=== PATIENT | female | born 1955 | race African-American/Black ===

== ENCOUNTER 2017-08-21 21:38 | Inpatient (IN) | payer MEDICAID ==
[~2017-08-21] VITALS: Ht 175.3 cm; Wt 131.5 kg
[~2017-08-21 21:38] MED LIST: HYDROCHLOROTH12.5 M2 ORAL; LETROZOLE2.5 MG ORAL; METOPROLOL TAR100 M1 ORAL
--- NOTE | 2017-08-21 21:55 | Emergency Room Report ---
History of Present Illness General Chief Complaint: Upper Extremity Injury Source: Patient Present Illness HPI This is a 62-year-old female with history of high blood pressure breast cancer in the past. For breast cancer she had lumpectomy and lymph node dissection. She presents with chief complaint of a fall and bilateral shoulder pain. Right greater than left. She was helping a friend out in [place] when she tripped over a rug and fell onto her front in and right side. She complaining of mostly right shoulder pain. Unable to move it. Pain is 10 out of 10. Also with left shoulder pain which she described as 6 out of 10. Worse with movement. No nausea no vomiting. No head injury. Did not pass out. Occurred just prior to arrival. Her neighbor called 911 because she could not get up and because of the pain. Allergies: Coded Allergies: No Known Allergies (Unverified , 08/21/17) Patient History Past Medical History: see triage record, old chart reviewed, HTN Past Surgical History: other Pertinent Family History: none Social History: Denies: smoking Now: No Immunizations: other Reviewed Nursing Documentation: PMH: Agreed; PSxH: Agreed Nursing Documentation-PMH Past Medical History: No History, Except For Hx Hypertension: Yes Hx Cancer: Yes - Left breast Review of Systems Eye: Denies: eye pain, blurred vision ENT: Denies: ear pain, nose congestion, throat swelling Respiratory: Denies: cough, shortness of breath Cardiovascular: Denies: chest pain, palpitations Gastrointestinal: Denies: abdominal pain, diarrhea, nausea, vomiting Musculoskeletal: Reports: joint pain; Denies: back pain Skin: Denies: rash Neurological: Denies: headache, numbness Endocrine: Denies: increased thirst, increased urine Hematologic/Lymphatic: Denies: easy bruising All Other Systems: negative except mentioned in HPI Physical Exam Sp02 EP Interpretation: reviewed, normal General Appearance: well appearing, no apparent distress, alert, obese Head: normocephalic, atraumatic Eyes: bilateral eye PERRL, bilateral eye EOMI ENT: hearing grossly normal, normal pharynx Neck: full range of motion, supple, no meningismus Respiratory: chest non-tender, lungs clear, normal breath sounds Cardiovascular #1: regular rate, rhythm, no murmur Gastrointestinal: normal bowel sounds, non tender, no mass, no organomegaly, no bruit, non-distended Musculoskeletal: back normal, other - Right shoulder: Tenderness to the shoulder diffusely. No elbow pain or wrist pain. Sensation normal. Pulses normal. Neurologic: alert, oriented x3 Psychiatric: mood/affect normal Skin: warm/dry Procedures Splinting Splinting : Consent: Verbal Location: right arm Hand-Made Type: plaster Splint: coaptation Pre-Proc Neuro Vasc Exam: normal Post-Proc Neuro Vasc Exam: normal Patient Tolerated: Well Complications: None Progress sling given for both arms Medical Decision Making Diagnostic Impression: Primary Impression: Fracture, humerus closed, shaft Qualified Codes: S42.321A - Displaced transverse fracture of shaft of humerus , right arm, initial encounter for closed fracture Additional Impressions: Humerus surgical neck fracture Qualified Codes: S42.222A - 2-part displaced fracture of surgical neck of left humerus, initial encounter for closed fracture UTI (urinary tract infection) Qualified Codes: N30.00 - Acute cystitis without hematuria Morbid obesity with BMI of 40.0-44.9, adult Anemia Qualified Codes: D64.9 - Anemia, unspecified Hypokalemia Proteinuria Qualified Codes: R80.9 - Proteinuria, unspecified ER Course Patient presents with bilateral humerus fracture from a fall. This is concerning for pathological fracture based on her breast cancer history. Patient splinted. We'll admit for further workup. Rocephin given for UTI. I discussed the case with Dr. Davey for admission. Also contacted Dr. Santos for ortho consult. Lab Results Impression labs unremarkable Other X-Ray Diagnostic Results Other X-Ray Diagnostic Results #1: X-Ray ordered: right shoulder x-rays # of Views/Limited Vs Complete: 3 View Indication: Pain EP Interpretation: Yes Interpretation: no dislocation, no soft tissue swelling, other - mid shaft humerus fracture Impression: Other - mid shaft humerus frx Electronically Signed by: Joon Nicole MD Other X-Ray Diagnostic Results #2: X-Ray ordered: left shoulder xrays # of Views/Limited Vs Complete: 3 View Indication: Pain EP Interpretation: Yes Interpretation: no dislocation, no soft tissue swelling, other - surgical neck frx of humerus Impression: Other - surgical neck humerus frx. Electronically Signed by: Joon Nicole MD Status: improved Disposition: ADMITTED INPATIENT Condition: Serious JOON NICOLE M.D. August 21, 2017 21:55
[2017-08-21] MEDS ORDERED: Morphine Sulfate 4mg/ml Inj IVP ONE ×2 (22:00→23:00)
[2017-08-21 22:58] VITALS: BP 106/60
[2017-08-21 23:23] LABS: BASOPHILS % (AUTO) 0.5 % (0.0-2.0); EOSINOPHILS % (AUTO) 1.3 % (0.0-3.0); HEMATOCRIT 27.8 % (37.0-47.0); HEMOGLOBIN 9.1 G/DL (12.0-16.0); MEAN CORPUSCULAR VOLUME 94 FL (80-99); MONOCYTES % (AUTO) 9.1 % (1.0-10.0); NEUTROPHILS % (AUTO) 75.1 % (45.0-75.0); PLATELET COUNT 239 K/UL (150-450); RED BLOOD COUNT 2.94 M/UL (4.20-5.40); RED CELL DISTRIBUTION WIDTH 12.7 % (11.6-14.8); WHITE BLOOD COUNT 9.2 K/UL (4.8-10.8)
[2017-08-21 23:27] LABS: ANION GAP 7 mmol/L (5-15); BLOOD UREA NITROGEN 19 mg/dL (7-18); CALCIUM 11.2 MG/DL (8.5-10.1); CARBON DIOXIDE 33 MMOL/L (21-32); CHLORIDE 102 MMOL/L (98-107); CREATININE 1.2 MG/DL (0.55-1.30); SODIUM 142 MMOL/L (136-145)
[2017-08-21 23:44] LABS: BILIRUBIN, URINE NEGATIVE (NEGATIVE); GLUCOSE, URINE (UA) NEGATIVE (NEGATIVE); KETONES,URINE NEGATIVE (NEGATIVE); LEUKOCYTE ESTERASE ,URINE 3+ (NEGATIVE); NITRITE,URINE NEGATIVE (NEGATIVE); PH,URINE 7 (4.5-8.0); PROTEIN,URINE 3+ (NEGATIVE); UROBILINOGEN,URINE NORMAL MG/DL (0.0-1.0)
[2017-08-21 23:59] LABS: APPEARANCE,URINE CLOUDY; COLOR,URINE YELLOW
[2017-08-22] VITALS (7 sets, daily range): BP systolic 122–143; BP diastolic 64–75
[2017-08-22] MEDS ORDERED: cefTRIAXone 1 GM in NS 55 ML IVPB ONE (00:30)
[2017-08-22] MEDS ORDERED: LETROZOLE2.5 MG ORAL (01:19)
[2017-08-22] MEDS ORDERED: HYDROCHLOROTH12.5 M2 ORAL (01:19)
[2017-08-22] MEDS ORDERED: MULTIVITAMINS1 EAC2 ORAL (01:19)
[2017-08-22] MEDS ORDERED: METOPROLOL TAR100 M1 ORAL (01:19)
[2017-08-22] MEDS: Morphine Sulfate 4mg/ml Inj IVP PRN ×5 (04:47→21:30)
--- NOTE | 2017-08-22 09:08 | Consultation ---
History of Present Illness General Date patient seen: August 22, 2017 Time patient seen: 07:30 - am Chief Complaint: Upper Extremity Injury Referring physician: Dr. Pa Reason for Consultation: Pain management Present Illness HPI This is a 62-year-old female being seen on the med/surg of [facility] for initial pain management consultation. She is c/o bilateral shoulder pain due to a fall. Right greater than left. She was helping a friend out in [place] when she tripped over a rug and fell onto her front in and right side. She complaining of mostly right shoulder pain. Unable to move it. Pain is 10 out of 10. Also with left shoulder pain which she described as 6 out of 10. Worse with movement. Started on Morphine 2mg IV Q4H PRN which has allowed her to tolerate the pain. Waiting to be seen by Orthopedic surgeon. Allergies: Coded Allergies: No Known Allergies (Unverified , 08/21/17) Medication History Scheduled Hydrochlorothiazide* (Hydrochlorothiazide*), 12.5 MG ORAL DAILY, (Reported) Letrozole (Letrozole), 2.5 MG ORAL DAILY, (Reported) Metoprolol Tartrate* (Metoprolol Tartrate*), 100 MG ORAL BID, (Reported) Multivitamins* (Multivitamins*), 1 TAB ORAL DAILY, (Reported) Discontinued Medications Hydrochlorothiazide* (Hydrochlorothiazide*), 12.5 MG ORAL DAILY, (Reported) Discontinued Reason: MD discontinued med Letrozole (Letrozole), 2.5 MG ORAL DAILY, (Reported) Discontinued Reason: MD discontinued med Metoprolol Tartrate* (Metoprolol Tartrate*), 100 MG ORAL BID, (Reported) Discontinued Reason: discontinued med Patient History Healthcare decision maker Gaudencio Sotomayor Resuscitation status Full Code Advanced Directive on File Patient History Narrative History of high blood pressure breast cancer. For breast cancer she had lumpectomy and lymph node dissection Social History: Denies: smoking Review of Systems Constitutional: Reports: no symptoms Eye: Reports: no symptoms ENT: Reports: no symptoms Respiratory: Reports: no symptoms Cardiovascular: Reports: no symptoms Gastrointestinal: Reports: no symptoms Genitourinary: Reports: no symptoms Musculoskeletal: Reports: joint pain - b/l shoulder pain Skin: Reports: no symptoms Psychiatric: Reports: no symptoms Neurological: Reports: no symptoms Endocrine: Reports: no symptoms Hematologic/Lymphatic: Reports: no symptoms Physical Exam General Appearance: no apparent distress, alert, overweight HEENT: PERRL, EOMI Neck: non-tender, normal alignment Respiratory/Chest: lungs clear, normal breath sounds Cardiovascular/Chest: normal rate, regular rhythm Abdomen: non tender, soft Extremities: other - b/l shoulders tenderness to palpation with reduced ROM Skin Exam: normal pigmentation, warm/dry Neurologic: alert, oriented x 3, responsive Last 24 Hour Vital Signs Date Time Temp Pulse Resp B/P (MAP) Pulse Ox O2 Delivery O2 Flow Rate FiO2 08/22/17 09:07 99.0 08/22/17 08:00 99.0 93 13 135/72 96 Room Air 99.0 08/22/17 04:19 98.4 83 13 127/72 96 Room Air 98.4 08/22/17 01:51 98.2 74 13 122/71 95 Room Air 98.2 08/22/17 01:43 98.3 68 13 143/66 100 Room Air 98.3 08/22/17 01:24 98.3 68 13 143/66 100 Room Air 98.3 08/21/17 23:05 98.3 08/21/17 22:58 98.3 62 13 106/60 100 Room Air 98.3 Intake and Output 08/21/17 08/22/17 19:00 07:00 Intake Total 110 ml Balance 110 ml Intake IV Total 110 ml Laboratory Tests Test 08/21/17 23:00 08/21/17 23:33 White Blood Count 9.2 K/UL (4.8-10.8) Red Blood Count 2.94 M/UL (4.20-5.40) L Hemoglobin 9.1 G/DL (12.0-16.0) L Hematocrit 27.8 % (37.0-47.0) L Mean Corpuscular Volume 94 FL (80-99) Mean Corpuscular Hemoglobin 30.8 PG (27.0-31.0) Mean Corpuscular Hemoglobin Concent 32.6 G/DL (32.0-36.0) Red Cell Distribution Width 12.7 % (11.6-14.8) Platelet Count 239 K/UL (150-450) Mean Platelet Volume 5.7 FL (6.5-10.1) L Neutrophils (%) (Auto) 75.1 % (45.0-75.0) H Lymphocytes (%) (Auto) 14.0 % (20.0-45.0) L Monocytes (%) (Auto) 9.1 % (1.0-10.0) Eosinophils (%) (Auto) 1.3 % (0.0-3.0) Basophils (%) (Auto) 0.5 % (0.0-2.0) Prothrombin Time 9.8 SEC (9.30-11.50) Prothromb Time International Ratio 1.0 (0.9-1.1) Activated Partial Thromboplast Time 21 SEC (23-33) L Sodium Level 142 MMOL/L (136-145) Potassium Level 3.0 MMOL/L (3.5-5.1) L Chloride Level 102 MMOL/L (98-107) Carbon Dioxide Level 33 MMOL/L (21-32) H Anion Gap 7 mmol/L (5-15) Blood Urea Nitrogen 19 mg/dL (7-18) H Creatinine 1.2 MG/DL (0.55-1.30) Estimat Glomerular Filtration Rate 45.9 mL/min (>60) Glucose Level 123 MG/DL (74-106) H Calcium Level 11.2 MG/DL (8.5-10.1) H Urine Color Yellow Urine Appearance Cloudy Urine pH 7 (4.5-8.0) Urine Specific [place] 1.010 (1.005-1.035) Urine Protein 3+ (NEGATIVE) H Urine Glucose (UA) Negative (NEGATIVE) Urine Ketones Negative (NEGATIVE) Urine Occult Blood 3+ (NEGATIVE) H Urine Nitrite Negative (NEGATIVE) Urine Bilirubin Negative (NEGATIVE) Urine Urobilinogen Normal MG/DL (0.0-1.0) Urine Leukocyte Esterase 3+ (NEGATIVE) H Urine RBC 10-15 /HPF (0 - 2) H Urine WBC Tntc /HPF (0 - 2) H Urine Squamous Epithelial Cells Moderate /LPF (NONE/OCC) H Urine Bacteria Moderate /HPF (NONE) H Height (Feet): 5 Height (Inches): 9.00 Weight (Pounds): 290 Medications Current Medications Medications (Trade) Dose Ordered Sig/Hernan Route PRN Reason Start Time Stop Time Status Last Admin Dose Admin Acetaminophen (Tylenol) 650 mg Q4H PRN ORAL Mild Pain/Temp >100.0 08/22/17 01:00 09/21/17 00:59 Morphine Sulfate (Morphine Sulfate) 2 mg Q4H PRN IVP Severe Pain (Pain Scale 7-10) 08/22/17 01:00 08/29/17 00:59 08/22/17 09:07 Sodium Chloride 1,000 ml @ 55 mls/hr [id number] IV 08/22/17 01:00 09/21/17 00:59 08/22/17 02:16 Objective Narrative Procedure: XRAY Shoulder Compl R Indication: Pain Findings: 3 views of the right shoulder were obtained. Acute fracture involving the proximal shaft of the right humerus demonstrated. The bones are osteopenic. There is no malalignment of the glenohumeral joint. IMPRESSION: Acute fracture of the shaft of the proximal right humerus Procedure: XRAY Shoulder Compl L Indication: left shoulder pain Findings: 3 views of the left shoulder were obtained. There is acute somewhat displaced fracture of the left humeral neck. The bones are osteopenic. Surgical clips noted in the left axilla. IMPRESSION: Moderately displaced and angulated fracture of the left humeral neck Assessment/Plan Assessment/Plan (1) B/L shoulder pain (2) Left humeral neck fracture (3) Proximal right humerus fracture Patient to be continued on Morphine. Waiting to be seen by Ortho. D/w Dr. Farfan and he concurred Thank you for consult. ARJUN NGUYỄN August 22, 2017 09:08
--- NOTE | 2017-08-22 10:06 | Consultation ---
Consult Note Consult Note asked to eval for hypercalcemia This is a 62-year-old female with history of high blood pressure breast cancer in the past. For breast cancer she had lumpectomy and lymph node dissection. She presents with chief complaint of a fall and bilateral shoulder pain. Right greater than left. She was helping a friend out in [place] when she tripped over a rug and fell onto her front in and right side. She complaining of mostly right shoulder pain. Unable to move it. Pain is 10 out of 10. Also with left shoulder pain which she described as 6 out of 10. Worse with movement. No nausea no vomiting. No head injury. Did not pass out. Occurred just prior to arrival. Her neighbor called 911 because she could not get up and because of the pain. Hx Hypertension: Yes Hx Cancer: Yes - Left breast interviewed examined- data reviewed . Assessment/Plan Hypercalcemia Anemia UTI Fracture, humerus closed, shaft Humerus surgical neck fracture Morbid obesity with BMI of 40.0-44.9, adult Proteinuria Hydrate- fine- Anemia yanez Aredia if Ca remains high Keep BP in check Per ortho WINIFRED PALACIOS August 22, 2017 10:06
--- NOTE | 2017-08-22 11:22 | Diagnostic Imaging Report ---
Indication: left shoulder pain Findings: 3 views of the left shoulder were obtained. There is acute somewhat displaced fracture of the left humeral neck. The bones are osteopenic. Surgical clips noted in the left axilla. IMPRESSION: Moderately displaced and angulated fracture of the left humeral neck
--- NOTE | 2017-08-22 11:23 | Diagnostic Imaging Report ---
Indication: Pain Findings: 3 views of the right shoulder were obtained. Acute fracture involving the proximal shaft of the right humerus demonstrated. The bones are osteopenic. There is no malalignment of the glenohumeral joint. IMPRESSION: Acute fracture of the shaft of the proximal right humerus
[2017-08-22 11:41] LABS: BASOPHILS % (AUTO) 0.3 % (0.0-2.0); HEMATOCRIT 25.6 % (37.0-47.0); HEMOGLOBIN 8.2 G/DL (12.0-16.0); LYMPHOCYTES % (AUTO) 16.7 % (20.0-45.0); MEAN CORPUSCULAR VOLUME 95 FL (80-99); NEUTROPHILS % (AUTO) 74.1 % (45.0-75.0); PLATELET COUNT 218 K/UL (150-450); RED CELL DISTRIBUTION WIDTH 12.5 % (11.6-14.8); WHITE BLOOD COUNT 7.1 K/UL (4.8-10.8)
[2017-08-22] MEDS: D5 1/2NS w/KCl 40meq 1000ml 1,000 ML IV SCH ×2 (11:56→21:34)
[2017-08-22 12:05] LABS: ANION GAP 7 mmol/L (5-15); BLOOD UREA NITROGEN 17 mg/dL (7-18); CALCIUM 11.3 MG/DL (8.5-10.1); CARBON DIOXIDE 32 MMOL/L (21-32); CHLORIDE 103 MMOL/L (98-107); CREATININE 1.2 MG/DL (0.55-1.30); POTASSIUM 3.2 MMOL/L (3.5-5.1); SODIUM 142 MMOL/L (136-145)
[2017-08-22 12:07] LABS: CHOLESTEROL 176 MG/DL (< 200); HDL CHOLESTEROL 59 MG/DL (40-60); TRIGLYCERIDES 89 MG/DL (30-150)
[2017-08-22 12:20] LABS: ALANINE AMINOTRANSFERASE 58 U/L (12-78); ALBUMIN 3.3 G/DL (3.4-5.0); ALBUMIN/GLOBULIN RATIO 0.9 (1.0-2.7); ALKALINE PHOSPHATASE 115 U/L (46-116); ASPARTATE AMINO TRANSFERASE 49 U/L (15-37); BILIRUBIN,TOTAL 0.5 MG/DL (0.2-1.0); CREATINE KINASE 48 U/L (26-308); FERRITIN 1315 NG/ML (8-388); GAMMA GLUTAMYL TRANSPEPTIDASE 40 U/L (5-85); PHOSPHORUS 5.5 MG/DL (2.5-4.9)
[2017-08-22 12:24] LABS: % IRON SATURATION 26 % (15-50); IRON 62 ug/dL (50-175); TOTAL IRON BINDING CAPACITY 243 ug/dL (250-450)
--- NOTE | 2017-08-22 12:48 | Consultation ---
Consult Note Consult Note 62 yo female with hx breast ca and recent trauma with BL UE fx. Rt mid shaft humerus, displaced Lft displaced humeral neck fx. Pt requires higher level of care given her multiple and significant injuries, as well as the concern for pathologic fx given prior CA hx. would recommend tx to tertiary center for surgical intervention that is above our level of expertise. Dr. Bacon at [facility] is aware of the pt and willing to accept her if insurance admission to [facility] is possible. will ask that counter caser work on this FRANCESCO. Peace Mckenzie August 22, 2017 12:48
[2017-08-22] MEDS: Docusate 100mg cap ORAL SCH ×2 (13:13→17:13)
--- NOTE | 2017-08-22 13:19 | Diagnostic Imaging Report ---
APPROVED REPORT CPT Code: 43375 Present Symptoms Length: Comments: R/O DVT BILATERAL: Imaging reveals a patent deep venous system bilaterally. There is no evidence of thrombus within the femoral, popliteal or tibial segments. The greater saphenous veins are also within normal limits. Doppler indicates normal spontaneous flow within these segments.
--- NOTE | 2017-08-22 15:18 | Consultation ---
Consult Note Consult Note Job ID [id number] -- thank you for consultation Joselito Steele MD August 22, 2017 15:18
--- NOTE | 2017-08-22 16:15 | Consultation ---
DATE OF CONSULTATION: 08/22/2017 ORTHOPEDIC CONSULTATION CONSULTING PHYSICIAN: Sandro Santos M.D. CONSULT CALLED BY: Amparo Pa M.D. HISTORY OF PRESENT ILLNESS: The patient is a very pleasant, although unfortunate 62-year-old female, who has a history of breast cancer for which she had treated and had a mechanical fall yesterday tripping over a carpet. She fell with outstretched arms and had immediate onset of bilateral arm pain. She was unable to be assisted up and ambulance was called. She was brought to [facility] ER where she was noted to have bilateral upper extremity fractures. On the right side, there is a midshaft humeral fracture that is displaced. On the left side, she has a displaced and angulated humeral neck fracture. The patient has been on oral medication for her breast cancer for some time. She indicates that she was told that possible long-term side effects could be osteoporosis and bone thinning. There is also some concern of pathologic nature to these fractures. The patient is currently in the right upper extremity splint and sling and a left upper extremity sling. Orthopedics consult has been called for question of surgical intervention. PAST MEDICAL HISTORY: History of breast cancer and hypertension. PAST SURGICAL HISTORY: Lumpectomy mastectomy. CURRENT MEDICATIONS: Metoprolol and oral medication from her oncologist, although the name is not noted. SOCIAL HISTORY: She is independent with her activities. She ambulates. She is quite functional at her baseline. ALLERGIES: None. PHYSICAL EXAMINATION: She is a very pleasant woman. She is cooperative with examination. She has bilateral upper extremity pain. On the right side, she is in a well-padded splint and a sling. She is able to wiggle her fingers and flex and extend her wrist. She is neurovascularly intact. On the left, she is in a sling with tenderness on the proximal humeral area, some ecchymosis, and swelling. She is neurovascularly intact. She does have sensation although decreased in axillary nerve. DIAGNOSTIC DATA: x-rays are reviewed. On the right, there is a displaced midshaft humeral fracture. On the left, there is a displaced and angulated humeral neck fracture. IMPRESSION: 1. Right displaced midshaft humeral fracture. 2. Left displaced and angulated humeral neck fracture. 3. History of breast cancer with concern of pathologic fracture. DISCUSSION: At this time, I discussed with the patient my findings. This is a very unfortunate situation and she has very significant injuries, which will require a higher level of care at the tertiary center. We have spoken to Dr. Bacon, who is willing to accept the patient if she is able to be transferred from an insurance standpoint. We will ask mattress spring encaser to work on this as soon as possible to get the patient to a tertiary center where she can get by with higher level of care for these injuries as these fractures are significant and above our level of expertise. This was all discussed with the patient, she understands. We will work with mattress spring encaser closely to get this transfer set up sooner rather than later, so she can proceed with appropriate treatment. She understands she will require surgery and she also need to be seen by Oncology team for determination of any bony metastasis. We appreciate the ability to be involved in this case and we will help facilitate transfer to a tertiary center. This was all discussed with the patient. She understands, all her questions have been answered. Sandro Santos M.D. Ciro Degroot DR: ITA JOB#: [id number] CC: CHRIS
[2017-08-23 00:31] VITALS: BP 121/69
[2017-08-23] MEDS: Morphine Sulfate 4mg/ml Inj IVP PRN ×5 (01:51→20:06)
--- NOTE | 2017-08-23 03:15 | Consultation ---
DATE OF CONSULTATION: 08/22/2017 NOTE: POOR AUDIO HEMATOLOGY/ONCOLOGY CONSULTATION CONSULTING PHYSICIAN: Joselito Steele M.D. REQUESTING PHYSICIAN: Amparo Pa M.D. REASON FOR CONSULTATION: Evaluation of breast cancer. IDENTIFICATION DATA: Dear Dr. Pa, The patient is a pleasant 62-year-old female with past medical history significant for breast cancer, had a lumpectomy and lymph node dissection. This was approximately 17 years ago. She presents with a fall with bilateral shoulder pain, right worse than the left. The patient apparently had a fall, tripped over complaining of mild right shoulder pain, unable to move it CAT scan, which showed bilateral humerus fracture of the shaft, closed. Given history of cancer, Hematology Service was consulted for further evaluation and treatment. . Imaging reviewed shows . PAST MEDICAL HISTORY: . PAST SURGICAL HISTORY: None noted. ALLERGIES: No known drug allergies. FAMILY HISTORY: Noncontributory. SOCIAL HISTORY: No alcohol, tobacco, or illicit drug use. REVIEW OF SYSTEMS: CONSTITUTIONAL: No fevers, chills, or night sweats. SKIN: No rash, bumps, or itching. HEENT: No headache, hearing or vision changes. BREASTS: No lumps, pain, or discharge. PULMONARY: No cough, sputum, or shortness of breath. GASTROINTESTINAL: No nausea, vomiting, or diarrhea. GENITOURINARY: No dysuria, frequency, or urgency. MUSCULOSKELETAL: No joint swelling, muscle pain, or trauma. PHYSICAL EXAMINATION: VITAL SIGNS: Reviewed. GENERAL: No distress. LUNGS: Decreased breath sounds. CARDIOVASCULAR: Regular rate. No S3 or S4. ABDOMEN: Soft, nontender, and nondistended. EXTREMITIES: No cyanosis, swelling, or edema. LABORATORY AND DIAGNOSTIC DATA: Hemoglobin is 8.2. White blood cell count 9.9. Calcium 11.3. TIBC 1300. B12 of 1000. Obtain tumor markers. ASSESSMENT AND RECOMMENDATIONS: 1. Breast cancer. She apparently has been on letrozole and fracture of bilateral humerus. The patient potentially to be transferred given insurance as well as requirement for tertiary center pathological fracture history of cancer. 2. Anemia due to underlying chronic disease. Anemia workup at this time has been reviewed. 3. pathological fracture. Again to be seen by Orthopedic Surgery. have been reviewed. Concern at this time . 4. osteopenia potentially secondary to discontinue at this time. 5. Hypercalcemia, could be related to either malignancy and/or any other process. Tumor markers pending as well as skeletal survey, which has been ordered. 6. pain. Denies hitting her head or being knocked down. Pain management as per Dr. Whitlock. I appreciate the consultation. Joselito Steele M.D. DR: RONNELL JOB#: [id number] CC:
[2017-08-23 03:52] VITALS: BP 136/70
[2017-08-23] MEDS: D5 1/2NS w/KCl 40meq 1000ml 1,000 ML IV SCH ×2 (06:13→17:52)
--- NOTE | 2017-08-23 07:48 | General Progress Note ---
Assessment/Plan Assessment/Plan 1. Breast cancer. Diagnosed and treated in 2000, at [facility], s/p chemo in the past , had 5 years of tamoxifen, then chemo-pause and then started on letrozole which has a side effect of osteopenia, has been on it for >7y. At this time, sees oncologist for f/u --> obtain CA125 which in past elevated per patient when she was diagnosed --> skeletal survey 10v is pending eval for mets 2. Anemia due to underlying chronic disease. Anemia workup at this time has been reviewed. --> ferritin is elevated, does not need transfusion 3. Humeral b/l pathological fracture. Again to be seen by Orthopedic Surgery. --> ortho consult pending 4. Osteopenia potentially secondary to letrozole 5. Hypercalcemia, could be related to either malignancy and/or any other process. --> Tumor markers pending as well as skeletal survey, which has been ordered. --> consider endo eval 6. Arm pain. from fracture, seen by pain management Subjective Date patient seen: August 23, 2017 Constitutional: Denies: no symptoms, chills, diaphoresis, fever, malaise, weakness, other HEENT: Denies: no symptoms, eye pain, blurred vision, tearing, double vision, ear pain, ear discharge, nose pain, nose congestion, throat pain, throat swelling, mouth pain, mouth swelling, other Cardiovascular: Denies: no symptoms, chest pain, edema, irregular heart rate, lightheadedness, palpitations, syncope, other Respiratory: Denies: no symptoms, cough, orthopnea, shortness of breath, SOB with excertion, SOB at rest, sputum, stridor, wheezing, other Gastrointestinal/Abdominal: Denies: no symptoms, abdomen distended, abdominal pain, black stools, tarry stools, blood in stool, constipated, diarrhea, difficulty swallowing, nausea, poor appetite, poor fluid intake, rectal bleeding , vomiting, other Genitourinary: Denies: no symptoms, burning, discharge, frequency, flank pain, hematuria, incontinence, pain, urgency, other Endocrine: Denies: no symptoms, excessive sweating, flushing, intolerance to cold, intolerance to heat, increased hunger, increased thirst, increased urine, unexplained weight gain, unexplained weight loss, other Hematologic/Lymphatic: Denies: no symptoms, anemia, easy bleeding, easy bruising, other Allergies: Coded Allergies: No Known Allergies (Unverified , 08/21/17) Subjective no events, discussed her care, pending potential transfer Objective Last 24 Hour Vital Signs Date Time Temp Pulse Resp B/P (MAP) Pulse Ox O2 Delivery O2 Flow Rate FiO2 08/23/17 03:52 99.5 102 17 136/70 99 99.5 08/23/17 00:31 99.2 98 18 121/69 94 99.2 08/22/17 20:07 99.0 101 19 127/75 94 99.0 08/22/17 17:14 98.3 08/22/17 16:00 99.1 97 18 139/64 97 Room Air 99.1 08/22/17 12:00 98.3 97 18 138/73 97 Room Air 98.3 08/22/17 09:07 99.0 08/22/17 08:00 99.0 93 13 135/72 96 Room Air 99.0 Intake and Output 08/22/17 08/23/17 19:00 07:00 Intake Total 700 ml 1080 ml Output Total 700 ml 600 ml Balance 0 ml 480 ml Intake Oral 480 ml IV Total 700 ml 600 ml Output Urine Total 700 ml 600 ml # Voids 1 Laboratory Tests 08/22/17 11:25: White Blood Count 7.1, Red Blood Count 2.70L, Hemoglobin 8.2L, Hematocrit 25.6L , Mean Corpuscular Volume 95, Mean Corpuscular Hemoglobin 30.4, Mean Corpuscular Hemoglobin Concent 32.1, Red Cell Distribution Width 12.5, Platelet Count 218, Mean Platelet Volume 5.3L, Neutrophils (%) (Auto) 74.1, Lymphocytes ( %) (Auto) 16.7L, Monocytes (%) (Auto) 8.0, Eosinophils (%) (Auto) 1.0, Basophils (%) (Auto) 0.3, Sodium Level 142, Potassium Level 3.2L, Chloride Level 103, Carbon Dioxide Level 32, Anion Gap 7, Blood Urea Nitrogen 17, Creatinine 1.2, Estimat Glomerular Filtration Rate 55.6, Glucose Level 107H, Hemoglobin A1c 5.6, Uric Acid 9.9H, Calcium Level 11.3H, Phosphorus Level 5.5H, Magnesium Level 1.6L, Iron Level 62, Total Iron Binding Capacity 243L, Percent Iron Saturation 26, Unsaturated Iron Binding 181, Ferritin 1315H, Total Bilirubin 0.5, Gamma Glutamyl Transpeptidase 40, Aspartate Amino Transf (AST/ SGOT) 49H, Alanine Aminotransferase (ALT/SGPT) 58, Alkaline Phosphatase 115, Total Creatine Kinase 48, C-Reactive Protein, Quantitative 2.0H, Pro-B-Type Natriuretic Peptide 644H, Total Protein 7.0, Albumin 3.3L, Globulin 3.7, Albumin /Globulin Ratio 0.9L, Triglycerides Level 89, Cholesterol Level 176, LDL Cholesterol 111H, HDL Cholesterol 59, Cholesterol/HDL Ratio 3.0L, CA 15-3 Antigen 7.8, CA 19-9 Antigen 29, Vitamin B12 Level 1067H, Folate 6.9L, Thyroid Stimulating Hormone (TSH) 1.856 Height (Feet): 5 Height (Inches): 9.00 Weight (Pounds): 290 General Appearance: alert EENT: TMs normal Neck: supple Cardiovascular: normal rate Respiratory/Chest: lungs clear Abdomen: no organomegaly Extremities: normal inspection Edema: 1+ Leg (L), 1+ Leg (R) Edema: trace edema Neurologic: alert Skin: warm/dry Joselito Steele MD August 23, 2017 07:48
[2017-08-23 08:00] VITALS: BP 133/74
[2017-08-23] MEDS: Docusate 100mg cap ORAL SCH ×3 (08:54→17:53)
--- NOTE | 2017-08-23 08:54 | General Progress Note ---
Assessment/Plan Assessment/Plan (1) B/L shoulder pain (2) Left humeral neck fracture (3) Proximal right humerus fracture Patient to be continued on Morphine increased to 4mg IV Q4H PRN severe pain and start [place] 5/325mg PO 1 tab Q6H PRN moderate pain. Waiting to be transferred to [facility] D/w Dr. Farfan and he concurred Subjective Date patient seen: August 23, 2017 Time patient seen: 07:30 - am Allergies: Coded Allergies: No Known Allergies (Unverified , 08/21/17) Subjective Constitutional: Reports: no symptoms Eye: Reports: no symptoms ENT: Reports: no symptoms Respiratory: Reports: no symptoms Cardiovascular: Reports: no symptoms Gastrointestinal: Reports: no symptoms Genitourinary: Reports: no symptoms Musculoskeletal: Reports: joint pain - b/l shoulder pain Skin: Reports: no symptoms Psychiatric: Reports: no symptoms Neurological: Reports: no symptoms Endocrine: Reports: no symptoms Hematologic/Lymphatic: Reports: no symptoms Subjective In bed reporting pain has been severe with minimal relief on the current strength of Morphine. Waiting to be transferred as per ortho to [facility]. Objective Last 24 Hour Vital Signs Date Time Temp Pulse Resp B/P (MAP) Pulse Ox O2 Delivery O2 Flow Rate FiO2 08/23/17 03:52 99.5 102 17 136/70 99 99.5 08/23/17 00:31 99.2 98 18 121/69 94 99.2 08/22/17 20:07 99.0 101 19 127/75 94 99.0 08/22/17 17:14 98.3 08/22/17 16:00 99.1 97 18 139/64 97 Room Air 99.1 08/22/17 12:00 98.3 97 18 138/73 97 Room Air 98.3 08/22/17 09:07 99.0 Intake and Output 08/22/17 08/23/17 19:00 07:00 Intake Total 700 ml 1080 ml Output Total 700 ml 600 ml Balance 0 ml 480 ml Intake Oral 480 ml IV Total 700 ml 600 ml Output Urine Total 700 ml 600 ml # Voids 1 Laboratory Tests 08/22/17 11:25: White Blood Count 7.1, Red Blood Count 2.70L, Hemoglobin 8.2L, Hematocrit 25.6L , Mean Corpuscular Volume 95, Mean Corpuscular Hemoglobin 30.4, Mean Corpuscular Hemoglobin Concent 32.1, Red Cell Distribution Width 12.5, Platelet Count 218, Mean Platelet Volume 5.3L, Neutrophils (%) (Auto) 74.1, Lymphocytes ( %) (Auto) 16.7L, Monocytes (%) (Auto) 8.0, Eosinophils (%) (Auto) 1.0, Basophils (%) (Auto) 0.3, Sodium Level 142, Potassium Level 3.2L, Chloride Level 103, Carbon Dioxide Level 32, Anion Gap 7, Blood Urea Nitrogen 17, Creatinine 1.2, Estimat Glomerular Filtration Rate 55.6, Glucose Level 107H, Hemoglobin A1c 5.6, Uric Acid 9.9H, Calcium Level 11.3H, Phosphorus Level 5.5H, Magnesium Level 1.6L, Iron Level 62, Total Iron Binding Capacity 243L, Percent Iron Saturation 26, Unsaturated Iron Binding 181, Ferritin 1315H, Total Bilirubin 0.5, Gamma Glutamyl Transpeptidase 40, Aspartate Amino Transf (AST/ SGOT) 49H, Alanine Aminotransferase (ALT/SGPT) 58, Alkaline Phosphatase 115, Total Creatine Kinase 48, C-Reactive Protein, Quantitative 2.0H, Pro-B-Type Natriuretic Peptide 644H, Total Protein 7.0, Albumin 3.3L, Globulin 3.7, Albumin /Globulin Ratio 0.9L, Triglycerides Level 89, Cholesterol Level 176, LDL Cholesterol 111H, HDL Cholesterol 59, Cholesterol/HDL Ratio 3.0L, CA 15-3 Antigen 7.8, CA 19-9 Antigen 29, Vitamin B12 Level 1067H, Folate 6.9L, Thyroid Stimulating Hormone (TSH) 1.856 Height (Feet): 5 Height (Inches): 9.00 Weight (Pounds): 290 Objective General Appearance: no apparent distress, alert, overweight HEENT: PERRL, EOMI Neck: non-tender, normal alignment Respiratory/Chest: lungs clear, normal breath sounds Cardiovascular/Chest: normal rate, regular rhythm Abdomen: non tender, soft Extremities: other - b/l shoulders tenderness to palpation with reduced ROM Skin Exam: normal pigmentation, warm/dry Neurologic: alert, oriented x 3, responsive ARJUN NGUYỄN. P.Fely August 23, 2017 08:54
--- NOTE | 2017-08-23 11:15 | Nephrology Progress Note ---
Assessment/Plan Problem List: (1) Hypercalcemia (2) Fracture, humerus closed, shaft (3) Humerus surgical neck fracture (4) Morbid obesity with BMI of 40.0-44.9, adult (5) Anemia Assessment Hypercalcemia Anemia UTI Fracture, humerus closed, shaft Humerus surgical neck fracture Morbid obesity with BMI of 40.0-44.9, adult Proteinuria Plan Hydrate- AREDIA fine- Anemia yanez Keep BP in check Per ortho Subjective ROS Limited/Unobtainable: No Constitutional: Reports: malaise Objective Objective Last 24 Hour Vital Signs Date Time Temp Pulse Resp B/P (MAP) Pulse Ox O2 Delivery O2 Flow Rate FiO2 08/23/17 08:00 100.2 100 18 133/74 98 Room Air 100.2 08/23/17 03:52 99.5 102 17 136/70 99 99.5 08/23/17 00:31 99.2 98 18 121/69 94 99.2 08/22/17 20:07 99.0 101 19 127/75 94 99.0 08/22/17 17:14 98.3 08/22/17 16:00 99.1 97 18 139/64 97 Room Air 99.1 08/22/17 12:00 98.3 97 18 138/73 97 Room Air 98.3 Intake and Output 08/22/17 08/23/17 19:00 07:00 Intake Total 700 ml 1080 ml Output Total 700 ml 600 ml Balance 0 ml 480 ml Intake Oral 480 ml IV Total 700 ml 600 ml Output Urine Total 700 ml 600 ml # Voids 1 Laboratory Tests 08/22/17 11:25: White Blood Count 7.1, Red Blood Count 2.70L, Hemoglobin 8.2L, Hematocrit 25.6L , Mean Corpuscular Volume 95, Mean Corpuscular Hemoglobin 30.4, Mean Corpuscular Hemoglobin Concent 32.1, Red Cell Distribution Width 12.5, Platelet Count 218, Mean Platelet Volume 5.3L, Neutrophils (%) (Auto) 74.1, Lymphocytes ( %) (Auto) 16.7L, Monocytes (%) (Auto) 8.0, Eosinophils (%) (Auto) 1.0, Basophils (%) (Auto) 0.3, Sodium Level 142, Potassium Level 3.2L, Chloride Level 103, Carbon Dioxide Level 32, Anion Gap 7, Blood Urea Nitrogen 17, Creatinine 1.2, Estimat Glomerular Filtration Rate 55.6, Glucose Level 107H, Hemoglobin A1c 5.6, Uric Acid 9.9H, Calcium Level 11.3H, Phosphorus Level 5.5H, Magnesium Level 1.6L, Iron Level 62, Total Iron Binding Capacity 243L, Percent Iron Saturation 26, Unsaturated Iron Binding 181, Ferritin 1315H, Total Bilirubin 0.5, Gamma Glutamyl Transpeptidase 40, Aspartate Amino Transf (AST/ SGOT) 49H, Alanine Aminotransferase (ALT/SGPT) 58, Alkaline Phosphatase 115, Total Creatine Kinase 48, C-Reactive Protein, Quantitative 2.0H, Pro-B-Type Natriuretic Peptide 644H, Total Protein 7.0, Albumin 3.3L, Globulin 3.7, Albumin /Globulin Ratio 0.9L, Triglycerides Level 89, Cholesterol Level 176, LDL Cholesterol 111H, HDL Cholesterol 59, Cholesterol/HDL Ratio 3.0L, CA 15-3 Antigen 7.8, CA 19-9 Antigen 29, Vitamin B12 Level 1067H, Folate 6.9L, Thyroid Stimulating Hormone (TSH) 1.856 Height (Feet): 5 Height (Inches): 9.00 Weight (Pounds): 290 General Appearance: no apparent distress Objective no change WINIFRED PALACIOS August 23, 2017 11:15
[2017-08-23] MEDS ORDERED: Pamidronate Disodium Inj 60 MG in Sodium Chloride 500ML 550 ML IVPB SCH (11:30)
[2017-08-23 12:00] VITALS: BP 135/71
[2017-08-23 12:10] LABS: ANION GAP 7 mmol/L (5-15); BLOOD UREA NITROGEN 13 mg/dL (7-18); CALCIUM 10.3 MG/DL (8.5-10.1); CARBON DIOXIDE 31 MMOL/L (21-32); CHLORIDE 104 MMOL/L (98-107); CREATININE 1.2 MG/DL (0.55-1.30); SODIUM 141 MMOL/L (136-145)
[2017-08-23 12:14] LABS: ALANINE AMINOTRANSFERASE 55 U/L (12-78); ALBUMIN/GLOBULIN RATIO 0.8 (1.0-2.7); ALKALINE PHOSPHATASE 107 U/L (46-116); ASPARTATE AMINO TRANSFERASE 53 U/L (15-37); BILIRUBIN,TOTAL 0.7 MG/DL (0.2-1.0)
--- NOTE | 2017-08-23 13:45 | History and Physical Report ---
DATE OF ADMISSION: 08/21/2017 NOTE: "POOR AUDIO" REASON FOR ADMISSION: Bilateral humerus fracture. HISTORY OF PRESENT ILLNESS: The patient basically fell last night, tripped over a rock and sustained a bilateral upper extremity fracture. The patient and complains of pain over the fracture. Denies nausea, vomiting, diarrhea, fever, or chills. Denies abdominal pain. No shortness of breath. Denies cough. PAST MEDICAL HISTORY: Obesity, hypertension and breast cancer. PAST SURGICAL HISTORY: Lumpectomy. . ALLERGIES: No known allergies. FAMILY HISTORY: Noncontributory. REVIEW OF SYSTEMS: HEENT: Denies headaches. RESPIRATORY: Denies shortness of breath. Denies cough. CARDIOVASCULAR: Denies chest pain. Denies orthopnea. GASTROINTESTINAL: Denies nausea, vomiting, or diarrhea. EXTREMITIES: 01:05 bilateral upper extremity pain. CENTRAL NERVOUS SYSTEM: No change in vision or speech pattern. PHYSICAL EXAMINATION: VITAL SIGNS: Temperature 99 degrees, pulse 93, blood pressure 135/73. HEENT: PERRLA. NECK: Supple. CHEST: Clear to auscultation. GASTROINTESTINAL: Soft, nontender, and nondistended. No organomegaly. EXTREMITIES: edema. Reflexes equal on both sides. Decreased range of motion of the upper extremity due to pain. NEUROLOGIC: The patient upper extremity due to fracture. has been consulted. LABORATORY DATA: WBC of 9.2, hemoglobin 9.1 and platelets 239. Sodium 142, potassium 3.3, BUN of 17, creatinine 1.3 and glucose of 107. Calcium of 11.36. ASSESSMENT AND PLAN: 1. Hypercalcemia. 2. Bilateral humerus fracture from a fall. . I have asked Dr. Farfan, Dr. Steele and Dr. Morgan to see the patient for the above-mentioned diagnoses and treatment. medications. Amparo Pa M.D. DR: WILLIE JOB#: [id number] CC:
--- NOTE | 2017-08-23 14:46 | Consultation ---
Consult Note Consult Note Patient remains in house. Awaiting transfer to higher level of care due to significant bilateral upper extremity injury requirng orthopedic traumatologist and risk for pathological fracture requiring multi disciplinary approach. We have discussed this with the patient and the family and the onsite case manager is fully aware and this is being actively worked on. The scope of the orthopedic needs for this patient is beyond what can be provided to her at this facility. Thank you Sandro Santos MD August 23, 2017 14:46
[2017-08-23 19:48] VITALS: BP 130/73
[2017-08-23] MEDS ORDERED: cefTRIAXone 1 GM in D5W 55 ML IVPB SCH (22:00)
--- NOTE | 2017-08-23 22:03 | General Progress Note ---
Assessment/Plan Problem List: (1) Fracture, humerus closed, shaft ICD Codes: S42.309A - Unspecified fracture of shaft of humerus, unspecified arm , initial encounter for closed fracture SNOMED: 58228215, 363052302 Qualifiers: Qualified Codes: S42.321A - Displaced transverse fracture of shaft of humerus, right arm, initial encounter for closed fracture (2) Humerus surgical neck fracture ICD Codes: S42.213A - Unspecified displaced fracture of surgical neck of unspecified humerus, initial encounter for closedfracture SNOMED: 896398554, 615276583 Qualifiers: Qualified Codes: S42.222A - 2-part displaced fracture of surgical neck of left humerus, initial encounter for closed fracture (3) Morbid obesity with BMI of 40.0-44.9, adult ICD Codes: E66.01 - Morbid (severe) obesity due to excess calories; Z68.41 - Body mass index (BMI) 40.0-44.9, adult SNOMED: 431793230, 755554593 (4) Bilateral humeral fractures ICD Codes: S42.301A - Unspecified fracture of shaft of humerus, right arm, initial encounter for closed fracture; S42.302A - Unspecified fracture of shaft of humerus, left arm, initial encounter for closed fracture SNOMED: 79110166 (5) Breast cancer ICD Codes: C50.919 - Malignant neoplasm of unspecified site of unspecified female breast SNOMED: 830081275 (6) Hypercalcemia ICD Codes: E83.52 - Hypercalcemia SNOMED: 38262297 Status: progressing Assessment/Plan dc /transfer per dr manriquez morbid obesity fever id consult Subjective ROS Limited/Unobtainable: Yes Allergies: Coded Allergies: No Known Allergies (Unverified , 08/21/17) Objective Last 24 Hour Vital Signs Date Time Temp Pulse Resp B/P (MAP) Pulse Ox O2 Delivery O2 Flow Rate FiO2 08/23/17 20:53 101.3 08/23/17 19:48 101.3 108 20 130/73 92 Room Air 101.3 08/23/17 12:00 99.4 103 19 135/71 97 Room Air 99.4 08/23/17 08:00 100.2 100 18 133/74 98 Room Air 100.2 08/23/17 03:52 99.5 102 17 136/70 99 99.5 08/23/17 00:31 99.2 98 18 121/69 94 99.2 Intake and Output 08/22/17 08/23/17 19:00 07:00 Intake Total 700 ml 1080 ml Output Total 700 ml 600 ml Balance 0 ml 480 ml Intake Oral 480 ml IV Total 700 ml 600 ml Output Urine Total 700 ml 600 ml # Voids 1 Laboratory Tests 08/23/17 11:30: Sodium Level 141, Potassium Level 4.0, Chloride Level 104, Carbon Dioxide Level 31, Anion Gap 7, Blood Urea Nitrogen 13, Creatinine 1.2, Estimat Glomerular Filtration Rate 55.6, Glucose Level 117H, Calcium Level 10.3H, Phosphorus Level 4.0, Magnesium Level 1.5L, Total Bilirubin 0.7, Aspartate Amino Transf (AST/SGOT ) 53H, Alanine Aminotransferase (ALT/SGPT) 55, Alkaline Phosphatase 107, C- Reactive Protein, Quantitative 5.7H, Total Protein 6.7, Albumin 3.0L, Globulin 3.7, Albumin/Globulin Ratio 0.8L, CA 125 Antigen [Pending] Height (Feet): 5 Height (Inches): 9.00 Weight (Pounds): 290 Cardiovascular: normal rate Respiratory/Chest: lungs clear Abdomen: soft Amparo Pa MD August 23, 2017 22:03
[2017-08-24] VITALS: BP 123/70
[2017-08-24] MEDS: Morphine Sulfate 4mg/ml Inj IVP PRN ×3 (00:59→20:55)
[2017-08-24] MEDS: D5 1/2NS w/KCl 40meq 1000ml 1,000 ML IV SCH ×3 (03:16→23:30)
[2017-08-24] MEDS: Norco 5mg/325mg tab ORAL PRN ×2 (03:23→14:17)
[2017-08-24 04:30] VITALS: BP 123/71
--- NOTE | 2017-08-24 07:30 | General Progress Note ---
Assessment/Plan Assessment/Plan 1. Breast cancer. Diagnosed and treated in 2000, at [facility], s/p chemo in the past , had 5 years of tamoxifen, then chemo-pause and then started on letrozole which has a side effect of osteopenia, has been on it for >7y. At this time, sees oncologist for f/u --> obtain CA125 which in past elevated per patient when she was diagnosed --> skeletal survey 10v is pending eval for mets if patient able to tolerate --> d/c letrozole at this time 2. Anemia due to underlying chronic disease. Anemia workup at this time has been reviewed. --> ferritin is elevated, does not need transfusion 3. Humeral b/l pathological fracture. Again to be seen by Orthopedic Surgery. --> ortho consult pending, potential transfer to higher level of care 4. Osteopenia potentially secondary to letrozole 5. Hypercalcemia, could be related to either malignancy and/or any other process. --> Tumor markers pending as well as skeletal survey, which has been ordered. --> consider endo eval 6. Arm pain. from fracture, seen by pain management Subjective Date patient seen: August 24, 2017 Constitutional: Denies: no symptoms, chills, diaphoresis, fever, malaise, weakness, other HEENT: Denies: no symptoms, eye pain, blurred vision, tearing, double vision, ear pain, ear discharge, nose pain, nose congestion, throat pain, throat swelling, mouth pain, mouth swelling, other Cardiovascular: Denies: no symptoms, chest pain, edema, irregular heart rate, lightheadedness, palpitations, syncope, other Respiratory: Denies: no symptoms, cough, orthopnea, shortness of breath, SOB with excertion, SOB at rest, sputum, stridor, wheezing, other Gastrointestinal/Abdominal: Denies: no symptoms, abdomen distended, abdominal pain, black stools, tarry stools, blood in stool, constipated, diarrhea, difficulty swallowing, nausea, poor appetite, poor fluid intake, rectal bleeding , vomiting, other Genitourinary: Denies: no symptoms, burning, discharge, frequency, flank pain, hematuria, incontinence, pain, urgency, other Neurologic/Psychiatric: Denies: no symptoms, anxiety, depressed, emotional problems, headache, numbness, paresthesia, pre-existing deficit, seizure, tingling, tremors, weakness, other Endocrine: Denies: no symptoms, excessive sweating, flushing, intolerance to cold, intolerance to heat, increased hunger, increased thirst, increased urine, unexplained weight gain, unexplained weight loss, other Hematologic/Lymphatic: Denies: no symptoms, anemia, easy bleeding, easy bruising, other Allergies: Coded Allergies: No Known Allergies (Unverified , 08/21/17) Subjective no events, discussed her care, pending potential transfer Objective Last 24 Hour Vital Signs Date Time Temp Pulse Resp B/P (MAP) Pulse Ox O2 Delivery O2 Flow Rate FiO2 08/24/17 04:32 102.6 08/24/17 04:30 102.6 115 18 123/71 94 Room Air 102.6 08/24/17 03:33 100.5 08/24/17 00:00 99.0 102 18 123/70 97 Room Air 99.0 08/23/17 20:53 101.3 08/23/17 19:48 101.3 108 20 130/73 92 Room Air 101.3 08/23/17 12:00 99.4 103 19 135/71 97 Room Air 99.4 08/23/17 08:00 100.2 100 18 133/74 98 Room Air 100.2 Intake and Output 08/23/17 08/24/17 19:00 07:00 Intake Total 1700 ml 1440 ml Output Total 1300 ml 1550 ml Balance 400 ml -110 ml Intake Oral 600 ml 340 ml IV Total 1100 ml 1100 ml Output Urine Total 1300 ml 1550 ml Laboratory Tests 08/23/17 11:30: Sodium Level 141, Potassium Level 4.0, Chloride Level 104, Carbon Dioxide Level 31, Anion Gap 7, Blood Urea Nitrogen 13, Creatinine 1.2, Estimat Glomerular Filtration Rate 55.6, Glucose Level 117H, Calcium Level 10.3H, Phosphorus Level 4.0, Magnesium Level 1.5L, Total Bilirubin 0.7, Aspartate Amino Transf (AST/SGOT ) 53H, Alanine Aminotransferase (ALT/SGPT) 55, Alkaline Phosphatase 107, C- Reactive Protein, Quantitative 5.7H, Total Protein 6.7, Albumin 3.0L, Globulin 3.7, Albumin/Globulin Ratio 0.8L, CA 125 Antigen [Pending] Height (Feet): 5 Height (Inches): 9.00 Weight (Pounds): 290 General Appearance: alert EENT: normal ENT inspection Neck: supple Cardiovascular: regular rhythm Respiratory/Chest: lungs clear Abdomen: no organomegaly Extremities: non-tender Edema: 1+ Leg (L), 1+ Leg (R) Joselito Steele MD August 24, 2017 07:30
[2017-08-24 08:00] VITALS: BP 115/59
[2017-08-24] MEDS: Docusate 100mg cap ORAL SCH ×3 (08:26→17:43)
[2017-08-24] MEDS ORDERED: Morphine Sulfate 4mg/ml Inj SUBQ PRN (09:26)
--- NOTE | 2017-08-24 09:28 | General Progress Note ---
Assessment/Plan Assessment/Plan (1) B/L shoulder pain (2) Left humeral neck fracture (3) Proximal right humerus fracture Patient to be continued on Morphine and [place]. D/w Dr. Farfan and he concurred Subjective Date patient seen: August 24, 2017 Time patient seen: 08:00 - am Allergies: Coded Allergies: No Known Allergies (Unverified , 08/21/17) Subjective Constitutional: Reports: no symptoms Eye: Reports: no symptoms ENT: Reports: no symptoms Respiratory: Reports: no symptoms Cardiovascular: Reports: no symptoms Gastrointestinal: Reports: no symptoms Genitourinary: Reports: no symptoms Musculoskeletal: Reports: joint pain - b/l shoulder pain Skin: Reports: no symptoms Psychiatric: Reports: no symptoms Neurological: Reports: no symptoms Endocrine: Reports: no symptoms Hematologic/Lymphatic: Reports: no symptoms Subjective Pain has been better controlled on increase of medication. She is still waiting for transfer to tertiary hospital for higher level of care. Objective Last 24 Hour Vital Signs Date Time Temp Pulse Resp B/P (MAP) Pulse Ox O2 Delivery O2 Flow Rate FiO2 08/24/17 08:26 102.6 08/24/17 08:00 102.8 126 20 115/59 92 Room Air 102.8 08/24/17 04:32 102.6 08/24/17 04:30 102.6 115 18 123/71 94 Room Air 102.6 08/24/17 03:33 100.5 08/24/17 00:00 99.0 102 18 123/70 97 Room Air 99.0 08/23/17 20:53 101.3 08/23/17 19:48 101.3 108 20 130/73 92 Room Air 101.3 08/23/17 12:00 99.4 103 19 135/71 97 Room Air 99.4 Intake and Output 08/23/17 08/24/17 19:00 07:00 Intake Total 1700 ml 1440 ml Output Total 1300 ml 1550 ml Balance 400 ml -110 ml Intake Oral 600 ml 340 ml IV Total 1100 ml 1100 ml Output Urine Total 1300 ml 1550 ml Laboratory Tests 08/23/17 11:30: Sodium Level 141, Potassium Level 4.0, Chloride Level 104, Carbon Dioxide Level 31, Anion Gap 7, Blood Urea Nitrogen 13, Creatinine 1.2, Estimat Glomerular Filtration Rate 55.6, Glucose Level 117H, Calcium Level 10.3H, Phosphorus Level 4.0, Magnesium Level 1.5L, Total Bilirubin 0.7, Aspartate Amino Transf (AST/SGOT ) 53H, Alanine Aminotransferase (ALT/SGPT) 55, Alkaline Phosphatase 107, C- Reactive Protein, Quantitative 5.7H, Total Protein 6.7, Albumin 3.0L, Globulin 3.7, Albumin/Globulin Ratio 0.8L, CA 125 Antigen 7.2 Height (Feet): 5 Height (Inches): 9.00 Weight (Pounds): 290 Objective General Appearance: no apparent distress, alert, overweight HEENT: PERRL, EOMI Neck: non-tender, normal alignment Respiratory/Chest: lungs clear, normal breath sounds Cardiovascular/Chest: normal rate, regular rhythm Abdomen: non tender, soft Extremities: other - b/l shoulders tenderness to palpation with reduced ROM Skin Exam: normal pigmentation, warm/dry Neurologic: alert, oriented x 3, responsive ARJUN NGUYỄN August 24, 2017 09:28
[2017-08-24 10:59] LABS: HEMATOCRIT 24.1 % (37.0-47.0); HEMOGLOBIN 7.9 G/DL (12.0-16.0); MEAN CORPUSCULAR VOLUME 95 FL (80-99); PLATELET COUNT 202 K/UL (150-450); RED BLOOD COUNT 2.54 M/UL (4.20-5.40); RED CELL DISTRIBUTION WIDTH 12.5 % (11.6-14.8)
[2017-08-24 11:16] LABS: ALANINE AMINOTRANSFERASE 68 U/L (12-78); ALBUMIN 2.8 G/DL (3.4-5.0); ALBUMIN/GLOBULIN RATIO 0.7 (1.0-2.7); ALKALINE PHOSPHATASE 115 U/L (46-116); ANION GAP 9 mmol/L (5-15); ASPARTATE AMINO TRANSFERASE 59 U/L (15-37); BILIRUBIN,TOTAL 0.8 MG/DL (0.2-1.0); BLOOD UREA NITROGEN 13 mg/dL (7-18); CALCIUM 10.5 MG/DL (8.5-10.1); CARBON DIOXIDE 27 MMOL/L (21-32); CHLORIDE 104 MMOL/L (98-107); CREATININE 1.4 MG/DL (0.55-1.30); PHOSPHORUS 4.2 MG/DL (2.5-4.9); POTASSIUM 4.3 MMOL/L (3.5-5.1); SODIUM 140 MMOL/L (136-145)
[2017-08-24] MEDS ORDERED: Morphine Sulfate 4mg/ml Inj IVP PRN (11:41)
[2017-08-24] MEDS: Hydromorphone 0.5mg/0.5ml inj IM PRN ×2 (11:42→17:44)
[2017-08-24 12:00] VITALS: BP 114/59
--- NOTE | 2017-08-24 12:40 | Nephrology Progress Note ---
Assessment/Plan Problem List: (1) Hypercalcemia (2) Fracture, humerus closed, shaft (3) Humerus surgical neck fracture (4) Morbid obesity with BMI of 40.0-44.9, adult (5) Anemia Assessment Hypercalcemia Anemia UTI Fracture, humerus closed, shaft Humerus surgical neck fracture Morbid obesity with BMI of 40.0-44.9, adult Proteinuria Plan Hydrate- AREDIA given 60 mg 08/23 fine- Anemia yanez Keep BP in check Per ortho Subjective ROS Limited/Unobtainable: No Constitutional: Reports: malaise Objective Objective Last 24 Hour Vital Signs Date Time Temp Pulse Resp B/P (MAP) Pulse Ox O2 Delivery O2 Flow Rate FiO2 08/24/17 12:00 99.6 104 20 114/59 98 Room Air 99.6 08/24/17 09:25 100.0 08/24/17 08:26 102.6 08/24/17 08:00 102.8 126 20 115/59 92 Room Air 102.8 08/24/17 04:30 102.6 115 18 123/71 94 Room Air 102.6 08/24/17 03:33 100.5 08/24/17 00:00 99.0 102 18 123/70 97 Room Air 99.0 08/23/17 20:53 101.3 08/23/17 19:48 101.3 108 20 130/73 92 Room Air 101.3 Intake and Output 08/23/17 08/24/17 19:00 07:00 Intake Total 1700 ml 1440 ml Output Total 1300 ml 1550 ml Balance 400 ml -110 ml Intake Oral 600 ml 340 ml IV Total 1100 ml 1100 ml Output Urine Total 1300 ml 1550 ml Laboratory Tests 08/24/17 10:35: White Blood Count 6.0, Red Blood Count 2.54L, Hemoglobin 7.9L, Hematocrit 24.1L , Mean Corpuscular Volume 95, Mean Corpuscular Hemoglobin 30.9, Mean Corpuscular Hemoglobin Concent 32.6, Red Cell Distribution Width 12.5, Platelet Count 202, Mean Platelet Volume 5.5L, Neutrophils (%) (Auto) , Lymphocytes (%) ( Auto) , Monocytes (%) (Auto) , Eosinophils (%) (Auto) , Basophils (%) (Auto) , Differential Total Cells Counted 100, Neutrophils % (Manual) 83H, Lymphocytes % (Manual) 5L, Monocytes % (Manual) 5, Eosinophils % (Manual) 3, Basophils % ( Manual) 0, Band Neutrophils 4, Nucleated Red Blood Cells 4, Platelet Estimate Adequate, Platelet Morphology Normal, Poikilocytosis 1+, Sodium Level 140, Potassium Level 4.3, Chloride Level 104, Carbon Dioxide Level 27, Anion Gap 9, Blood Urea Nitrogen 13, Creatinine 1.4H, Estimat Glomerular Filtration Rate 46.5 , Glucose Level 109H, Uric Acid 8.4H, Calcium Level 10.5H, Phosphorus Level 4.2 , Magnesium Level 1.7L, Total Bilirubin 0.8, Aspartate Amino Transf (AST/SGOT) 59H, Alanine Aminotransferase (ALT/SGPT) 68, Alkaline Phosphatase 115, Pro-B- Type Natriuretic Peptide 1305H, Total Protein 6.6, Albumin 2.8L, Globulin 3.8, Albumin/Globulin Ratio 0.7L Height (Feet): 5 Height (Inches): 9.00 Weight (Pounds): 290 General Appearance: no apparent distress Objective no change WINIFRED PALACIOS August 24, 2017 12:40
[2017-08-24] MEDS: Magnesium Oxide 400mg tab ORAL SCH ×2 (14:04→17:43)
[2017-08-24 16:00] VITALS: BP 115/59
--- NOTE | 2017-08-24 16:21 | Diagnostic Imaging Report ---
Indication: Cough Technique: One view of the chest Comparison: none Findings: No acute infiltrates, effusions, or congestion. Tortuous calcified aorta. Normal heart size. Upper mediastinum unremarkable. Surgical clips are seen in the left axilla Impression: No acute process.
[2017-08-24] MEDS ORDERED: Tubing IV Secondary IV ONE (17:42)
[2017-08-24] MEDS: cefTRIAXone 1 GM in D5W 110 ML IVPB SCH (20:13)
[2017-08-24 20:14] VITALS: BP 124/59
--- NOTE | 2017-08-24 21:43 | General Progress Note ---
Assessment/Plan Problem List: (1) Fracture, humerus closed, shaft ICD Codes: S42.309A - Unspecified fracture of shaft of humerus, unspecified arm , initial encounter for closed fracture SNOMED: 27062094, 813319666 Qualifiers: Qualified Codes: S42.321A - Displaced transverse fracture of shaft of humerus, right arm, initial encounter for closed fracture (2) Humerus surgical neck fracture ICD Codes: S42.213A - Unspecified displaced fracture of surgical neck of unspecified humerus, initial encounter for closedfracture SNOMED: 211933687, 242466068 Qualifiers: Qualified Codes: S42.222A - 2-part displaced fracture of surgical neck of left humerus, initial encounter for closed fracture (3) Morbid obesity with BMI of 40.0-44.9, adult ICD Codes: E66.01 - Morbid (severe) obesity due to excess calories; Z68.41 - Body mass index (BMI) 40.0-44.9, adult SNOMED: 857363596, 276556372 (4) Bilateral humeral fractures ICD Codes: S42.301A - Unspecified fracture of shaft of humerus, right arm, initial encounter for closed fracture; S42.302A - Unspecified fracture of shaft of humerus, left arm, initial encounter for closed fracture SNOMED: 13955496 (5) Breast cancer ICD Codes: C50.919 - Malignant neoplasm of unspecified site of unspecified female breast SNOMED: 474182127 (6) Hypercalcemia ICD Codes: E83.52 - Hypercalcemia SNOMED: 52439822 Status: progressing Assessment/Plan transfer per dr manriquez morbid obesity fever id consult persistent fever poor iv access iv per id Subjective Allergies: Coded Allergies: No Known Allergies (Unverified , 08/21/17) Subjective pain ue where the fx is Objective Last 24 Hour Vital Signs Date Time Temp Pulse Resp B/P (MAP) Pulse Ox O2 Delivery O2 Flow Rate FiO2 08/24/17 20:14 102.3 117 20 124/59 98 Room Air 102.3 08/24/17 17:44 98.8 08/24/17 16:00 99.6 99 21 115/59 98 Room Air 99.6 08/24/17 15:06 98.8 08/24/17 14:07 100.5 08/24/17 12:00 99.6 104 20 114/59 98 Room Air 99.6 08/24/17 08:26 102.6 08/24/17 08:00 102.8 126 20 115/59 92 Room Air 102.8 08/24/17 04:30 102.6 115 18 123/71 94 Room Air 102.6 08/24/17 03:33 100.5 08/24/17 00:00 99.0 102 18 123/70 97 Room Air 99.0 Intake and Output 08/23/17 08/24/17 19:00 07:00 Intake Total 1700 ml 1440 ml Output Total 1300 ml 1550 ml Balance 400 ml -110 ml Intake Oral 600 ml 340 ml IV Total 1100 ml 1100 ml Output Urine Total 1300 ml 1550 ml Laboratory Tests 08/24/17 10:35: White Blood Count 6.0, Red Blood Count 2.54L, Hemoglobin 7.9L, Hematocrit 24.1L , Mean Corpuscular Volume 95, Mean Corpuscular Hemoglobin 30.9, Mean Corpuscular Hemoglobin Concent 32.6, Red Cell Distribution Width 12.5, Platelet Count 202, Mean Platelet Volume 5.5L, Neutrophils (%) (Auto) , Lymphocytes (%) ( Auto) , Monocytes (%) (Auto) , Eosinophils (%) (Auto) , Basophils (%) (Auto) , Differential Total Cells Counted 100, Neutrophils % (Manual) 83H, Lymphocytes % (Manual) 5L, Monocytes % (Manual) 5, Eosinophils % (Manual) 3, Basophils % ( Manual) 0, Band Neutrophils 4, Nucleated Red Blood Cells 4, Platelet Estimate Adequate, Platelet Morphology Normal, Poikilocytosis 1+, Sodium Level 140, Potassium Level 4.3, Chloride Level 104, Carbon Dioxide Level 27, Anion Gap 9, Blood Urea Nitrogen 13, Creatinine 1.4H, Estimat Glomerular Filtration Rate 46.5 , Glucose Level 109H, Uric Acid 8.4H, Calcium Level 10.5H, Phosphorus Level 4.2 , Magnesium Level 1.7L, Total Bilirubin 0.8, Aspartate Amino Transf (AST/SGOT) 59H, Alanine Aminotransferase (ALT/SGPT) 68, Alkaline Phosphatase 115, Pro-B- Type Natriuretic Peptide 1305H, Total Protein 6.6, Albumin 2.8L, Globulin 3.8, Albumin/Globulin Ratio 0.7L Height (Feet): 5 Height (Inches): 9.00 Weight (Pounds): 290 Cardiovascular: normal rate Respiratory/Chest: lungs clear Abdomen: soft Amparo Pa MD August 24, 2017 21:43
--- NOTE | 2017-08-24 23:15 | Consultation ---
DATE OF CONSULTATION: 08/24/2017 INFECTIOUS DISEASE CONSULTATION CONSULTING PHYSICIAN: Kulwant Mireles M.D. PRIMARY ATTENDING PHYSICIAN: Amparo Pa M.D. REASON FOR CONSULT: Fever. HISTORY OF PRESENT ILLNESS: This is a 62-year-old, female admitted on 08/21/2017 after a fall. He tripped over and fell down and it was found that the patient had bilateral humerus fracture. The patient has no fever at the time of admission, but since last night, there was fever. PAST MEDICAL HISTORY: Significant for breast cancer, diagnosed and treated in 2000 in [facility], had chemotherapy 5 years of tamoxifen, and hypertension. ALLERGIES: No known drug allergies. MEDICATIONS: Ceftriaxone started last night, morphine, hydromorphone, Browder, Colace, and famotidine. REVIEW OF SYSTEMS: In addition to fever, has pain in shoulders, has productive coughing. No nausea. No vomiting. No diarrhea. She has no dysuria. SOCIAL HISTORY: Lives at home. . No history of alcohol, drug abuse, or smoking. She has 1 son. PHYSICAL EXAMINATION: GENERAL APPEARANCE: She seems to be well developed, no acute distress. VITAL SIGNS: T-max 102.8 degrees, pulse 126, current temperature 100 degrees, and blood pressure is 115/59. HEAD AND NECK: No oral lesion. HEART: S1 and S2 regular. Tachycardic. LUNGS: Clear. ABDOMEN: Soft, nontender. EXTREMITIES: She has no edema. GENITOURINARY: She has Zelaya catheter. MUSCULOSKELETAL: She has right arm soft cast. LABORATORY AND DIAGNOSTIC DATA: WBC 6, hemoglobin is 7.9, hemoglobin 24.1, and platelets 202. Sodium 140, potassium 4.3, chloride 104, bicarbonate 27, BUN 13, creatinine 1.4 and calcium is 10.5. Uric acid is 8.4. UA showed wbc's too numerous to count, rbc's 10 to 15, leukocyte esterase 3+. Urine culture grew mixed gram-positive organism. The patient had a shoulder x-ray that showed bilateral femoral fractures. Right side, it is a humerus shaft fracture. Left-sided fracture is of the neck of humerus. IMPRESSION: Sepsis with fever and tachycardia. The patient has productive cough. We will try to rule out pneumonia, has pyuria, likely has urinary tract infection, has osteoporosis, obesity, hypercalcemia, hyperuricemia, anemia, displaced fracture of the shaft of humerus in the right side, and displaced fracture of the surgical neck of humerus in the left side. RECOMMENDATION: We will continue with ceftriaxone. We will obtain a chest x-ray. The patient was supposed to be transferred to [facility] for surgery. If remained febrile, we will send blood cultures. At the end of my exam, I thank Dr. Pa for involving me in the care of this patient. Kulwant Mireles M.D. DR: ELADIA JOB#: [id number] CC:
[2017-08-25] VITALS: BP 129/62
[2017-08-25] MEDS: Morphine Sulfate 4mg/ml Inj IVP PRN ×5 (00:59→20:06)
[2017-08-25] MEDS: Norco 5mg/325mg tab ORAL PRN (01:19)
[2017-08-25] MEDS: D5 1/2NS w/KCl 40meq 1000ml 1,000 ML IV SCH ×2 (03:37→15:27)
[2017-08-25 04:00] VITALS: BP 106/59
[2017-08-25 08:00] VITALS: BP 149/64
[2017-08-25] MEDS: Docusate 100mg cap ORAL SCH ×3 (08:40→17:51)
[2017-08-25] MEDS: Magnesium Oxide 400mg tab ORAL SCH ×3 (08:40→17:51)
[2017-08-25] MEDS ORDERED: Vancomycin 1.5 GM/D5W 250ML IVPB ONE (10:00)
--- NOTE | 2017-08-25 10:50 | Nephrology Progress Note ---
Assessment/Plan Problem List: (1) Hypercalcemia (2) Fracture, humerus closed, shaft (3) Humerus surgical neck fracture (4) Morbid obesity with BMI of 40.0-44.9, adult (5) Anemia Assessment Hypercalcemia Anemia UTI Fracture, humerus closed, shaft Humerus surgical neck fracture Morbid obesity with BMI of 40.0-44.9, adult Proteinuria Plan no labs today Hydrate- AREDIA given 60 mg 5 fine- Anemia yanez Keep BP in check Per ortho Subjective ROS Limited/Unobtainable: No Constitutional: Reports: malaise Objective Objective Last 24 Hour Vital Signs Date Time Temp Pulse Resp B/P (MAP) Pulse Ox O2 Delivery O2 Flow Rate FiO2 08/25/17 08:00 98.2 88 16 149/64 96 Room Air 98.2 08/25/17 04:37 102.2 08/25/17 04:00 102.3 104 20 106/59 98 Room Air 102.3 08/25/17 03:38 103.2 08/25/17 01:19 101.8 08/25/17 00:00 103.3 112 20 129/62 98 Room Air 103.3 08/24/17 21:00 101.8 101.8 08/24/17 20:14 102.3 117 20 124/59 98 Room Air 102.3 08/24/17 17:44 98.8 08/24/17 16:00 99.6 99 21 115/59 98 Room Air 99.6 08/24/17 14:07 100.5 08/24/17 12:00 99.6 104 20 114/59 98 Room Air 99.6 Intake and Output 08/24/17 08/25/17 19:00 07:00 Intake Total 550 ml 1500 ml Output Total 700 ml 600 ml Balance -150 ml 900 ml Intake Oral 450 ml 400 ml IV Total 100 ml 1100 ml Output Urine Total 700 ml 600 ml Height (Feet): 5 Height (Inches): 9.00 Weight (Pounds): 290 General Appearance: no apparent distress Objective no change WINIFRED PALACIOS August 25, 2017 10:50
[2017-08-25 12:00] VITALS: BP 132/64
--- NOTE | 2017-08-25 12:41 | General Progress Note ---
Assessment/Plan Assessment/Plan 1. Breast cancer. Diagnosed and treated in 2000, at [facility], s/p chemo in the past , had 5 years of tamoxifen, then chemo-pause and then started on letrozole which has a side effect of osteopenia, has been on it for >7y. At this time, sees oncologist for f/u --> obtain CA125 which in past elevated per patient when she was diagnosed --> skeletal survey 10v is pending eval for mets if patient able to tolerate --> d/c letrozole at this time 2. Anemia due to underlying chronic disease. Anemia workup at this time has been reviewed. --> ferritin is elevated, does not need transfusion 3. Humeral b/l pathological fracture. Again to be seen by Orthopedic Surgery. --> ortho consult pending, potential transfer to higher level of care 4. Osteopenia potentially secondary to letrozole 5. Hypercalcemia, could be related to either malignancy and/or any other process. --> Tumor markers pending as well as skeletal survey, which has been ordered. --> consider endo eval 6. Arm pain. from fracture, seen by pain management Subjective Date patient seen: August 25, 2017 Allergies: Coded Allergies: No Known Allergies (Unverified , 08/21/17) All Systems: reviewed and negative except above Subjective No overnight events. Pt remains stable. Objective Last 24 Hour Vital Signs Date Time Temp Pulse Resp B/P (MAP) Pulse Ox O2 Delivery O2 Flow Rate FiO2 08/25/17 12:00 99.4 87 18 132/64 98 Room Air 99.4 08/25/17 08:00 98.2 88 16 149/64 96 Room Air 98.2 08/25/17 04:37 102.2 08/25/17 04:00 102.3 104 20 106/59 98 Room Air 102.3 08/25/17 03:38 103.2 08/25/17 01:19 101.8 08/25/17 00:00 103.3 112 20 129/62 98 Room Air 103.3 08/24/17 21:00 101.8 101.8 08/24/17 20:14 102.3 117 20 124/59 98 Room Air 102.3 08/24/17 17:44 98.8 08/24/17 16:00 99.6 99 21 115/59 98 Room Air 99.6 08/24/17 14:07 100.5 Intake and Output 08/24/17 08/25/17 19:00 07:00 Intake Total 550 ml 1500 ml Output Total 700 ml 600 ml Balance -150 ml 900 ml Intake Oral 450 ml 400 ml IV Total 100 ml 1100 ml Output Urine Total 700 ml 600 ml Height (Feet): 5 Height (Inches): 9.00 Weight (Pounds): 290 General Appearance: no apparent distress EENT: normal ENT inspection Neck: normal alignment Cardiovascular: normal rate Respiratory/Chest: lungs clear Abdomen: non tender Joselito Steele MD August 25, 2017 12:41
[2017-08-25 16:00] VITALS: BP 145/70
[2017-08-25 20:00] VITALS: BP 144/62
[2017-08-25] MEDS: cefTRIAXone 1 GM in D5W 110 ML IVPB SCH (20:06)
--- NOTE | 2017-08-25 21:44 | General Progress Note ---
Assessment/Plan Problem List: (1) Fracture, humerus closed, shaft ICD Codes: S42.309A - Unspecified fracture of shaft of humerus, unspecified arm , initial encounter for closed fracture SNOMED: 88628584, 305848379 Qualifiers: Qualified Codes: S42.321A - Displaced transverse fracture of shaft of humerus, right arm, initial encounter for closed fracture (2) Humerus surgical neck fracture ICD Codes: S42.213A - Unspecified displaced fracture of surgical neck of unspecified humerus, initial encounter for closedfracture SNOMED: 589335266, 991474892 Qualifiers: Qualified Codes: S42.222A - 2-part displaced fracture of surgical neck of left humerus, initial encounter for closed fracture (3) Morbid obesity with BMI of 40.0-44.9, adult ICD Codes: E66.01 - Morbid (severe) obesity due to excess calories; Z68.41 - Body mass index (BMI) 40.0-44.9, adult SNOMED: 984784770, 541258649 (4) Bilateral humeral fractures ICD Codes: S42.301A - Unspecified fracture of shaft of humerus, right arm, initial encounter for closed fracture; S42.302A - Unspecified fracture of shaft of humerus, left arm, initial encounter for closed fracture SNOMED: 69930919 (5) Breast cancer ICD Codes: C50.919 - Malignant neoplasm of unspecified site of unspecified female breast SNOMED: 048514504 (6) Hypercalcemia ICD Codes: E83.52 - Hypercalcemia SNOMED: 68640961 Status: progressing Assessment/Plan transfer per dr manriquez morbid obesity fever bilat humeral fracture persistent fever abx per id Subjective Allergies: Coded Allergies: No Known Allergies (Unverified , 08/21/17) Subjective pain ue where the fx is Objective Last 24 Hour Vital Signs Date Time Temp Pulse Resp B/P (MAP) Pulse Ox O2 Delivery O2 Flow Rate FiO2 08/25/17 16:00 98.3 91 18 145/70 98 Room Air 98.3 08/25/17 12:00 99.4 87 18 132/64 98 Room Air 99.4 08/25/17 08:00 98.2 88 16 149/64 96 Room Air 98.2 08/25/17 04:37 102.2 08/25/17 04:00 102.3 104 20 106/59 98 Room Air 102.3 08/25/17 03:38 103.2 08/25/17 01:19 101.8 08/25/17 00:00 103.3 112 20 129/62 98 Room Air 103.3 Intake and Output 08/24/17 08/25/17 19:00 07:00 Intake Total 550 ml 1600 ml Output Total 700 ml 600 ml Balance -150 ml 1000 ml Intake Oral 450 ml 400 ml IV Total 100 ml 1200 ml Output Urine Total 700 ml 600 ml Height (Feet): 5 Height (Inches): 9.00 Weight (Pounds): 290 Cardiovascular: normal rate Respiratory/Chest: lungs clear Abdomen: soft Amparo Pa MD August 25, 2017 21:44
[2017-08-25] MEDS: Vancomycin 1gm/D5W 275ml IVPB SCH ×2 (22:16)
[2017-08-26] VITALS: BP 130/66
[2017-08-26] MEDS: Morphine Sulfate 4mg/ml Inj IVP PRN ×3 (00:39→21:20)
[2017-08-26] MEDS: D5 1/2NS w/KCl 40meq 1000ml 1,000 ML IV SCH ×2 (03:10→11:13)
[2017-08-26 04:00] VITALS: BP 129/67
[2017-08-26 07:25] LABS: HEMATOCRIT 23.1 % (37.0-47.0); HEMOGLOBIN 7.5 G/DL (12.0-16.0); MEAN CORPUSCULAR VOLUME 95 FL (80-99); PLATELET COUNT 174 K/UL (150-450); RED BLOOD COUNT 2.43 M/UL (4.20-5.40); RED CELL DISTRIBUTION WIDTH 12.9 % (11.6-14.8); WHITE BLOOD COUNT 3.3 K/UL (4.8-10.8)
[2017-08-26 07:50] VITALS: BP 151/64
[2017-08-26 07:58] LABS: ALANINE AMINOTRANSFERASE 60 U/L (12-78); ALBUMIN 2.6 G/DL (3.4-5.0); ALBUMIN/GLOBULIN RATIO 0.7 (1.0-2.7); ALKALINE PHOSPHATASE 111 U/L (46-116); ANION GAP 10 mmol/L (5-15); ASPARTATE AMINO TRANSFERASE 55 U/L (15-37); BILIRUBIN,TOTAL 0.5 MG/DL (0.2-1.0); BLOOD UREA NITROGEN 19 mg/dL (7-18); CALCIUM 8.9 MG/DL (8.5-10.1); CARBON DIOXIDE 25 MMOL/L (21-32); CHLORIDE 104 MMOL/L (98-107); CREATININE 1.4 MG/DL (0.55-1.30); POTASSIUM 4.2 MMOL/L (3.5-5.1); SODIUM 139 MMOL/L (136-145)
[2017-08-26] MEDS: Magnesium Oxide 400mg tab ORAL SCH ×3 (08:53→17:06)
[2017-08-26] MEDS: Docusate 100mg cap ORAL SCH ×3 (08:53→17:06)
--- NOTE | 2017-08-26 10:01 | Nephrology Progress Note ---
Assessment/Plan Problem List: (1) Hypercalcemia (2) Fracture, humerus closed, shaft (3) Humerus surgical neck fracture (4) Morbid obesity with BMI of 40.0-44.9, adult (5) Anemia Assessment Hypercalcemia improved Anemia worsened UTI Fracture, humerus closed, shaft Humerus surgical neck fracture Morbid obesity with BMI of 40.0-44.9, adult Proteinuria Plan consider transfusion decrease IV fluid AREDIA given 60 mg 08/23 fine- Anemia yanez Keep BP in check Per ortho Subjective ROS Limited/Unobtainable: No Constitutional: Reports: malaise Objective Objective Last 24 Hour Vital Signs Date Time Temp Pulse Resp B/P (MAP) Pulse Ox O2 Delivery O2 Flow Rate FiO2 08/26/17 07:50 98.4 83 18 151/64 94 Room Air 98.4 08/26/17 04:00 Room Air 08/26/17 04:00 99.3 86 19 129/67 95 99.3 08/26/17 01:44 99.4 08/26/17 01:09 99.4 08/26/17 00:45 100.0 08/26/17 00:00 Room Air 08/26/17 00:00 100.0 91 19 130/66 92 100.0 08/25/17 20:00 Room Air 08/25/17 20:00 99.8 92 20 144/62 92 99.8 08/25/17 16:00 98.3 91 18 145/70 98 Room Air 98.3 08/25/17 12:00 99.4 87 18 132/64 98 Room Air 99.4 Intake and Output 08/25/17 08/26/17 19:00 07:00 Intake Total 1300 ml 1340 ml Output Total 900 ml 1475 ml Balance 400 ml -135 ml Intake Oral 300 ml 240 ml IV Total 1000 ml 1100 ml Output Urine Total 900 ml 1475 ml Laboratory Tests 08/26/17 05:30: White Blood Count 3.3L, Red Blood Count 2.43L, Hemoglobin 7.5L, Hematocrit 23.1L , Mean Corpuscular Volume 95, Mean Corpuscular Hemoglobin 30.8, Mean Corpuscular Hemoglobin Concent 32.4, Red Cell Distribution Width 12.9, Platelet Count 174, Mean Platelet Volume 6.4L, Neutrophils (%) (Auto) , Lymphocytes (%) ( Auto) , Monocytes (%) (Auto) , Eosinophils (%) (Auto) , Basophils (%) (Auto) , Differential Total Cells Counted 100, Neutrophils % (Manual) 61, Lymphocytes % ( Manual) 31, Monocytes % (Manual) 7, Eosinophils % (Manual) 1, Basophils % ( Manual) 0, Band Neutrophils 0, Platelet Estimate Adequate, Platelet Morphology Normal, Hypochromasia 1+, Sodium Level 139, Potassium Level 4.2, Chloride Level 104, Carbon Dioxide Level 25, Anion Gap 10, Blood Urea Nitrogen 19H, Creatinine 1.4H, Estimat Glomerular Filtration Rate 46.5, Glucose Level 108H, Uric Acid 7.4H, Calcium Level 8.9, Phosphorus Level 4.0, Magnesium Level 2.2, Total Bilirubin 0.5, Aspartate Amino Transf (AST/SGOT) 55H, Alanine Aminotransferase ( ALT/SGPT) 60, Alkaline Phosphatase 111, C-Reactive Protein, Quantitative 5.5H, Pro-B-Type Natriuretic Peptide 773H, Total Protein 6.3L, Albumin 2.6L, Globulin 3.7, Albumin/Globulin Ratio 0.7L Height (Feet): 5 Height (Inches): 9.00 Weight (Pounds): 290 General Appearance: no apparent distress Objective no change WINIFRED PALACIOS August 26, 2017 10:01
[2017-08-26] MEDS ORDERED: Hydromorphone 0.5mg/0.5ml inj IVP ONE (10:15)
[2017-08-26] MEDS: Vancomycin 1gm/D5W 275ml IVPB SCH ×4 (11:12→22:32)
--- NOTE | 2017-08-26 12:08 | Infectious Diseases Prog Note ---
Assessment/Plan Assessment/Plan A; Sepsis/ SIRS Fever is improving Bilateral humeral fracture Hypercalcemia Morbid obesity Anemia P: Continue Rocephin & Vancomycin will f/u cultures Subjective ROS Limited/Unobtainable: No Constitutional: Reports: fever, other - doing better Respiratory: Reports: no symptoms Cardiovascular: Reports: no symptoms Gastrointestinal/Abdominal: Reports: no symptoms Genitourinary: Reports: no symptoms Musculoskeletal: Reports: pain, other - in arms Allergies: Coded Allergies: No Known Allergies (Unverified , 08/21/17) Objective Vital Signs Last 24 Hour Vital Signs Date Time Temp Pulse Resp B/P (MAP) Pulse Ox O2 Delivery O2 Flow Rate FiO2 08/26/17 10:22 98.4 08/26/17 07:50 98.4 83 18 151/64 94 Room Air 98.4 08/26/17 04:00 Room Air 08/26/17 04:00 99.3 86 19 129/67 95 99.3 08/26/17 01:44 99.4 08/26/17 01:09 99.4 08/26/17 00:45 100.0 08/26/17 00:00 Room Air 08/26/17 00:00 100.0 91 19 130/66 92 100.0 08/25/17 20:00 Room Air 08/25/17 20:00 99.8 92 20 144/62 92 99.8 08/25/17 16:00 98.3 91 18 145/70 98 Room Air 98.3 Height (Feet): 5 Height (Inches): 9.00 Weight (Pounds): 290 General Appearance: no acute distress HEENT: mucous membranes moist Respiratory/Chest: lungs clear Cardiovascular: normal rate Abdomen: soft, non tender Extremities: no edema, other - bilateral arm slings Neurologic/Psychiatric: alert, oriented x 3, responsive Microbiology Date/Time Source Procedure Growth Status 08/25/17 00:55 Blood Blood Culture - Preliminary NO GROWTH AFTER 24 HOURS Resulted 08/25/17 00:45 Blood Blood Culture - Preliminary NO GROWTH AFTER 24 HOURS Resulted Laboratory Tests Test 08/26/17 05:30 White Blood Count 3.3 K/UL (4.8-10.8) L Red Blood Count 2.43 M/UL (4.20-5.40) L Hemoglobin 7.5 G/DL (12.0-16.0) L Hematocrit 23.1 % (37.0-47.0) L Mean Corpuscular Volume 95 FL (80-99) Mean Corpuscular Hemoglobin 30.8 PG (27.0-31.0) Mean Corpuscular Hemoglobin Concent 32.4 G/DL (32.0-36.0) Red Cell Distribution Width 12.9 % (11.6-14.8) Platelet Count 174 K/UL (150-450) Mean Platelet Volume 6.4 FL (6.5-10.1) L Neutrophils (%) (Auto) % (45.0-75.0) Lymphocytes (%) (Auto) % (20.0-45.0) Monocytes (%) (Auto) % (1.0-10.0) Eosinophils (%) (Auto) % (0.0-3.0) Basophils (%) (Auto) % (0.0-2.0) Differential Total Cells Counted 100 Neutrophils % (Manual) 61 % (45-75) Lymphocytes % (Manual) 31 % (20-45) Monocytes % (Manual) 7 % (1-10) Eosinophils % (Manual) 1 % (0-3) Basophils % (Manual) 0 % (0-2) Band Neutrophils 0 % (0-8) Platelet Estimate Adequate Platelet Morphology Normal Hypochromasia 1+ Sodium Level 139 MMOL/L (136-145) Potassium Level 4.2 MMOL/L (3.5-5.1) Chloride Level 104 MMOL/L (98-107) Carbon Dioxide Level 25 MMOL/L (21-32) Anion Gap 10 mmol/L (5-15) Blood Urea Nitrogen 19 mg/dL (7-18) H Creatinine 1.4 MG/DL (0.55-1.30) H Estimat Glomerular Filtration Rate 46.5 mL/min (>60) Glucose Level 108 MG/DL (74-106) H Uric Acid 7.4 MG/DL (2.6-7.2) H Calcium Level 8.9 MG/DL (8.5-10.1) Phosphorus Level 4.0 MG/DL (2.5-4.9) Magnesium Level 2.2 MG/DL (1.8-2.4) Total Bilirubin 0.5 MG/DL (0.2-1.0) Aspartate Amino Transf (AST/SGOT) 55 U/L (15-37) H Alanine Aminotransferase (ALT/SGPT) 60 U/L (12-78) Alkaline Phosphatase 111 U/L (46-116) C-Reactive Protein, Quantitative 5.5 mg/dL (0.00-0.90) H Pro-B-Type Natriuretic Peptide 773 pg/mL (0-125) H Total Protein 6.3 G/DL (6.4-8.2) L Albumin 2.6 G/DL (3.4-5.0) L Globulin 3.7 g/dL Albumin/Globulin Ratio 0.7 (1.0-2.7) L Current Medications Medications (Trade) Dose Ordered Sig/[place] Route PRN Reason Start Time Stop Time Status Last Admin Dose Admin Acetaminophen (Tylenol) 650 mg Q4H PRN ORAL Mild Pain/Temp >100.0 08/22/17 01:00 09/21/17 00:59 08/26/17 00:45 Acetaminophen/ Hydrocodone Bitart ([place] 5/325) 1 tab Q6H PRN ORAL Moderate Pain (Pain Scale 4-6) 08/23/17 09:26 08/30/17 09:25 08/25/17 01:19 Ceftriaxone Sodium 1 gm/ Dextrose 110 ml @ 220 mls/hr Q24H IVPB 08/24/17 21:00 08/30/17 20:59 08/25/17 20:06 Dextrose/ Electrolytes 1,000 ml @ 50 mls/hr Q20H IV 08/26/17 09:30 09/21/17 09:29 08/26/17 11:13 Docusate Sodium (Colace) 100 mg THREE TIMES A DAY ORAL 08/22/17 13:00 09/21/17 12:59 08/26/17 08:53 Famotidine (Pepcid) 20 mg BID ORAL 08/22/17 10:30 09/21/17 10:29 08/26/17 08:53 Magnesium Oxide (Mag-Ox 400mg) 400 mg THREE TIMES A DAY ORAL 08/24/17 13:00 09/23/17 12:59 08/26/17 08:53 Morphine Sulfate (Morphine Sulfate) 4 mg Q4H PRN IVP Severe Pain (Pain Scale 7-10) 08/24/17 20:00 08/29/17 19:59 08/26/17 05:37 Vancomycin HCl (Vanco rx to dose) 1 ea DAILY PRN MISC Per rx protocol 08/25/17 09:00 09/24/17 08:59 Vancomycin HCl 1 gm/Dextrose 275 ml @ 183.708 mls/hr Q12H IVPB 08/25/17 22:00 08/30/17 21:59 08/26/17 11:12 ROMÁN FINCH August 26, 2017 12:08
--- NOTE | 2017-08-26 12:35 | General Progress Note ---
Assessment/Plan Status: stable Assessment/Plan 1. Breast cancer. Diagnosed and treated in 2000, at [facility], s/p chemo in the past , had 5 years of tamoxifen, then chemo-pause and then started on letrozole which has a side effect of osteopenia, has been on it for >7y. At this time, sees oncologist for f/u --> obtain CA125 which in past elevated per patient when she was diagnosed --> skeletal survey 10v is pending eval for mets if patient able to tolerate --> d/c letrozole at this time 2. Anemia due to underlying chronic disease. Anemia workup at this time has been reviewed. --> ferritin is elevated, does not need transfusion 3. Humeral b/l pathological fracture. Again to be seen by Orthopedic Surgery. --> ortho consult pending, potential transfer to higher level of care 4. Osteopenia potentially secondary to letrozole 5. Hypercalcemia, could be related to either malignancy and/or any other process. --> Tumor markers pending as well as skeletal survey, which has been ordered. --> consider endo eval 6. Arm pain. from fracture, seen by pain management Subjective Date patient seen: August 26, 2017 Allergies: Coded Allergies: No Known Allergies (Unverified , 08/21/17) All Systems: reviewed and negative except above Subjective Patient seen resting in bed. Vitals are stable. No fever, chills, sob Objective Last 24 Hour Vital Signs Date Time Temp Pulse Resp B/P (MAP) Pulse Ox O2 Delivery O2 Flow Rate FiO2 08/26/17 10:22 98.4 08/26/17 07:50 98.4 83 18 151/64 94 Room Air 98.4 08/26/17 04:00 Room Air 08/26/17 04:00 99.3 86 19 129/67 95 99.3 08/26/17 01:44 99.4 08/26/17 01:09 99.4 08/26/17 00:45 100.0 08/26/17 00:00 Room Air 08/26/17 00:00 100.0 91 19 130/66 92 100.0 08/25/17 20:00 Room Air 08/25/17 20:00 99.8 92 20 144/62 92 99.8 08/25/17 16:00 98.3 91 18 145/70 98 Room Air 98.3 Intake and Output 08/25/17 08/26/17 19:00 07:00 Intake Total 1300 ml 1340 ml Output Total 900 ml 1475 ml Balance 400 ml -135 ml Intake Oral 300 ml 240 ml IV Total 1000 ml 1100 ml Output Urine Total 900 ml 1475 ml Laboratory Tests 08/26/17 05:30: White Blood Count 3.3L, Red Blood Count 2.43L, Hemoglobin 7.5L, Hematocrit 23.1L , Mean Corpuscular Volume 95, Mean Corpuscular Hemoglobin 30.8, Mean Corpuscular Hemoglobin Concent 32.4, Red Cell Distribution Width 12.9, Platelet Count 174, Mean Platelet Volume 6.4L, Neutrophils (%) (Auto) , Lymphocytes (%) ( Auto) , Monocytes (%) (Auto) , Eosinophils (%) (Auto) , Basophils (%) (Auto) , Differential Total Cells Counted 100, Neutrophils % (Manual) 61, Lymphocytes % ( Manual) 31, Monocytes % (Manual) 7, Eosinophils % (Manual) 1, Basophils % ( Manual) 0, Band Neutrophils 0, Platelet Estimate Adequate, Platelet Morphology Normal, Hypochromasia 1+, Sodium Level 139, Potassium Level 4.2, Chloride Level 104, Carbon Dioxide Level 25, Anion Gap 10, Blood Urea Nitrogen 19H, Creatinine 1.4H, Estimat Glomerular Filtration Rate 46.5, Glucose Level 108H, Uric Acid 7.4H, Calcium Level 8.9, Phosphorus Level 4.0, Magnesium Level 2.2, Total Bilirubin 0.5, Aspartate Amino Transf (AST/SGOT) 55H, Alanine Aminotransferase ( ALT/SGPT) 60, Alkaline Phosphatase 111, C-Reactive Protein, Quantitative 5.5H, Pro-B-Type Natriuretic Peptide 773H, Total Protein 6.3L, Albumin 2.6L, Globulin 3.7, Albumin/Globulin Ratio 0.7L Height (Feet): 5 Height (Inches): 9.00 Weight (Pounds): 290 General Appearance: no apparent distress EENT: normal ENT inspection Neck: normal alignment Cardiovascular: normal rate Respiratory/Chest: lungs clear Abdomen: non tender Joselito Steele MD August 26, 2017 12:35
[2017-08-26 12:59] VITALS: BP 142/57
[2017-08-26 15:48] VITALS: BP 143/65
--- NOTE | 2017-08-26 17:11 | General Progress Note ---
Assessment/Plan Assessment/Plan (1) B/L shoulder pain (2) Left humeral neck fracture (3) Proximal right humerus fracture Patient to be continued on Morphine and Rosalie. We will start Dilaudid 1mg IV QD PRN PT. D/w Dr. Farfan and he concurred Subjective Date patient seen: August 26, 2017 Time patient seen: 19:20 - pm Allergies: Coded Allergies: No Known Allergies (Unverified , 08/21/17) Subjective Constitutional: Reports: no symptoms Eye: Reports: no symptoms ENT: Reports: no symptoms Respiratory: Reports: no symptoms Cardiovascular: Reports: no symptoms Gastrointestinal: Reports: no symptoms Genitourinary: Reports: no symptoms Musculoskeletal: Reports: joint pain - b/l shoulder pain Skin: Reports: no symptoms Psychiatric: Reports: no symptoms Neurological: Reports: no symptoms Endocrine: Reports: no symptoms Hematologic/Lymphatic: Reports: no symptoms Subjective Her pain has been stable. She was given a one time dose of Dilaudid 2mg IV which helped to relieve her pain for PT. Objective Last 24 Hour Vital Signs Date Time Temp Pulse Resp B/P (MAP) Pulse Ox O2 Delivery O2 Flow Rate FiO2 08/26/17 15:48 98.2 82 18 143/65 98 Room Air 98.2 08/26/17 12:59 98.1 83 18 142/57 96 Room Air 98.1 08/26/17 10:50 98.2 08/26/17 10:22 98.4 08/26/17 07:50 98.4 83 18 151/64 94 Room Air 98.4 08/26/17 04:00 Room Air 08/26/17 04:00 99.3 86 19 129/67 95 99.3 08/26/17 01:44 99.4 08/26/17 01:09 99.4 08/26/17 00:45 100.0 08/26/17 00:00 Room Air 08/26/17 00:00 100.0 91 19 130/66 92 100.0 08/25/17 20:00 Room Air 08/25/17 20:00 99.8 92 20 144/62 92 99.8 Intake and Output 08/25/17 08/26/17 19:00 07:00 Intake Total 1300 ml 1340 ml Output Total 900 ml 1475 ml Balance 400 ml -135 ml Intake Oral 300 ml 240 ml IV Total 1000 ml 1100 ml Output Urine Total 900 ml 1475 ml Laboratory Tests 08/26/17 05:30: White Blood Count 3.3L, Red Blood Count 2.43L, Hemoglobin 7.5L, Hematocrit 23.1L , Mean Corpuscular Volume 95, Mean Corpuscular Hemoglobin 30.8, Mean Corpuscular Hemoglobin Concent 32.4, Red Cell Distribution Width 12.9, Platelet Count 174, Mean Platelet Volume 6.4L, Neutrophils (%) (Auto) , Lymphocytes (%) ( Auto) , Monocytes (%) (Auto) , Eosinophils (%) (Auto) , Basophils (%) (Auto) , Differential Total Cells Counted 100, Neutrophils % (Manual) 61, Lymphocytes % ( Manual) 31, Monocytes % (Manual) 7, Eosinophils % (Manual) 1, Basophils % ( Manual) 0, Band Neutrophils 0, Platelet Estimate Adequate, Platelet Morphology Normal, Hypochromasia 1+, Sodium Level 139, Potassium Level 4.2, Chloride Level 104, Carbon Dioxide Level 25, Anion Gap 10, Blood Urea Nitrogen 19H, Creatinine 1.4H, Estimat Glomerular Filtration Rate 46.5, Glucose Level 108H, Uric Acid 7.4H, Calcium Level 8.9, Phosphorus Level 4.0, Magnesium Level 2.2, Total Bilirubin 0.5, Aspartate Amino Transf (AST/SGOT) 55H, Alanine Aminotransferase ( ALT/SGPT) 60, Alkaline Phosphatase 111, C-Reactive Protein, Quantitative 5.5H, Pro-B-Type Natriuretic Peptide 773H, Total Protein 6.3L, Albumin 2.6L, Globulin 3.7, Albumin/Globulin Ratio 0.7L Height (Feet): 5 Height (Inches): 9.00 Weight (Pounds): 290 Objective General Appearance: no apparent distress, alert, overweight HEENT: PERRL, EOMI Neck: non-tender, normal alignment Respiratory/Chest: lungs clear, normal breath sounds Cardiovascular/Chest: normal rate, regular rhythm Abdomen: non tender, soft Extremities: other - b/l shoulders tenderness to palpation with reduced ROM Skin Exam: normal pigmentation, warm/dry Neurologic: alert, oriented x 3, responsive ARJUN NGUYỄN August 26, 2017 17:11
[2017-08-26] MEDS ORDERED: Hydromorphone 0.5mg/0.5ml inj IVP PRN (17:45)
[2017-08-26 20:32] VITALS: BP 156/63
[2017-08-26] MEDS: cefTRIAXone 1 GM in D5W 110 ML IVPB SCH (21:18)
--- NOTE | 2017-08-26 22:28 | General Progress Note ---
Assessment/Plan Problem List: (1) Fracture, humerus closed, shaft ICD Codes: S42.309A - Unspecified fracture of shaft of humerus, unspecified arm , initial encounter for closed fracture SNOMED: 27581785, 292329066 Qualifiers: Qualified Codes: S42.321A - Displaced transverse fracture of shaft of humerus, right arm, initial encounter for closed fracture (2) Humerus surgical neck fracture ICD Codes: S42.213A - Unspecified displaced fracture of surgical neck of unspecified humerus, initial encounter for closedfracture SNOMED: 362247645, 108765826 Qualifiers: Qualified Codes: S42.222A - 2-part displaced fracture of surgical neck of left humerus, initial encounter for closed fracture (3) Morbid obesity with BMI of 40.0-44.9, adult ICD Codes: E66.01 - Morbid (severe) obesity due to excess calories; Z68.41 - Body mass index (BMI) 40.0-44.9, adult SNOMED: 842093638, 547127658 (4) Bilateral humeral fractures ICD Codes: S42.301A - Unspecified fracture of shaft of humerus, right arm, initial encounter for closed fracture; S42.302A - Unspecified fracture of shaft of humerus, left arm, initial encounter for closed fracture SNOMED: 64110169 (5) Breast cancer ICD Codes: C50.919 - Malignant neoplasm of unspecified site of unspecified female breast SNOMED: 958207075 (6) Hypercalcemia ICD Codes: E83.52 - Hypercalcemia SNOMED: 83157173 Status: progressing Assessment/Plan afebrile today awaiting transfer to higher level for orthopedic surgery repair since fx is complicated per dr manriquez morbid obesity bilat humeral fracture persistent fever abx per id Subjective ROS Limited/Unobtainable: Yes Allergies: Coded Allergies: No Known Allergies (Unverified , 08/21/17) Subjective pain ue where the fx is Objective Last 24 Hour Vital Signs Date Time Temp Pulse Resp B/P (MAP) Pulse Ox O2 Delivery O2 Flow Rate FiO2 08/26/17 20:32 98.3 92 18 156/63 98 98.3 08/26/17 15:48 98.2 82 18 143/65 98 Room Air 98.2 08/26/17 12:59 98.1 83 18 142/57 96 Room Air 98.1 08/26/17 10:50 98.2 08/26/17 10:22 98.4 08/26/17 07:50 98.4 83 18 151/64 94 Room Air 98.4 08/26/17 04:00 Room Air 08/26/17 04:00 99.3 86 19 129/67 95 99.3 08/26/17 01:44 99.4 08/26/17 01:09 99.4 08/26/17 00:45 100.0 08/26/17 00:00 Room Air 08/26/17 00:00 100.0 91 19 130/66 92 100.0 Intake and Output 08/25/17 08/26/17 19:00 07:00 Intake Total 1300 ml 1340 ml Output Total 900 ml 1475 ml Balance 400 ml -135 ml Intake Oral 300 ml 240 ml IV Total 1000 ml 1100 ml Output Urine Total 900 ml 1475 ml Laboratory Tests 08/26/17 05:30: White Blood Count 3.3L, Red Blood Count 2.43L, Hemoglobin 7.5L, Hematocrit 23.1L , Mean Corpuscular Volume 95, Mean Corpuscular Hemoglobin 30.8, Mean Corpuscular Hemoglobin Concent 32.4, Red Cell Distribution Width 12.9, Platelet Count 174, Mean Platelet Volume 6.4L, Neutrophils (%) (Auto) , Lymphocytes (%) ( Auto) , Monocytes (%) (Auto) , Eosinophils (%) (Auto) , Basophils (%) (Auto) , Differential Total Cells Counted 100, Neutrophils % (Manual) 61, Lymphocytes % ( Manual) 31, Monocytes % (Manual) 7, Eosinophils % (Manual) 1, Basophils % ( Manual) 0, Band Neutrophils 0, Platelet Estimate Adequate, Platelet Morphology Normal, Hypochromasia 1+, Sodium Level 139, Potassium Level 4.2, Chloride Level 104, Carbon Dioxide Level 25, Anion Gap 10, Blood Urea Nitrogen 19H, Creatinine 1.4H, Estimat Glomerular Filtration Rate 46.5, Glucose Level 108H, Uric Acid 7.4H, Calcium Level 8.9, Phosphorus Level 4.0, Magnesium Level 2.2, Total Bilirubin 0.5, Aspartate Amino Transf (AST/SGOT) 55H, Alanine Aminotransferase ( ALT/SGPT) 60, Alkaline Phosphatase 111, C-Reactive Protein, Quantitative 5.5H, Pro-B-Type Natriuretic Peptide 773H, Total Protein 6.3L, Albumin 2.6L, Globulin 3.7, Albumin/Globulin Ratio 0.7L 08/26/17 21:30: Vancomycin Level Trough 19.2H Height (Feet): 5 Height (Inches): 9.00 Weight (Pounds): 290 Cardiovascular: normal rate Respiratory/Chest: lungs clear Abdomen: soft Amparo Pa MD August 26, 2017 22:28
[2017-08-26] MEDS: Norco 5mg/325mg tab ORAL PRN (22:46)
[2017-08-27 00:05] VITALS: BP 146/60
[2017-08-27 04:31] VITALS: BP 152/74
[2017-08-27] MEDS: D5 1/2NS w/KCl 40meq 1000ml 1,000 ML IV SCH (06:11)
[2017-08-27] MEDS: Morphine Sulfate 4mg/ml Inj IVP PRN ×2 (06:17→12:22)
[2017-08-27 07:34] LABS: HEMATOCRIT 22.5 % (37.0-47.0); HEMOGLOBIN 7.3 G/DL (12.0-16.0); MEAN CORPUSCULAR VOLUME 95 FL (80-99); PLATELET COUNT 175 K/UL (150-450); RED BLOOD COUNT 2.38 M/UL (4.20-5.40); RED CELL DISTRIBUTION WIDTH 12.6 % (11.6-14.8); WHITE BLOOD COUNT 2.8 K/UL (4.8-10.8)
[2017-08-27 07:59] LABS: ALANINE AMINOTRANSFERASE 45 U/L (12-78); ALBUMIN 2.4 G/DL (3.4-5.0); ALBUMIN/GLOBULIN RATIO 0.6 (1.0-2.7); ALKALINE PHOSPHATASE 102 U/L (46-116); ANION GAP 9 mmol/L (5-15); ASPARTATE AMINO TRANSFERASE 38 U/L (15-37); BILIRUBIN,TOTAL 0.5 MG/DL (0.2-1.0); BLOOD UREA NITROGEN 15 mg/dL (7-18); CALCIUM 8.6 MG/DL (8.5-10.1); CARBON DIOXIDE 27 MMOL/L (21-32); CHLORIDE 105 MMOL/L (98-107); CREATININE 1.2 MG/DL (0.55-1.30); PHOSPHORUS 3.6 MG/DL (2.5-4.9); POTASSIUM 4.2 MMOL/L (3.5-5.1); SODIUM 140 MMOL/L (136-145)
[2017-08-27 08:00] VITALS: BP 109/58
--- NOTE | 2017-08-27 08:40 | General Progress Note ---
Assessment/Plan Assessment/Plan #. Breast cancer. Diagnosed and treated in 2000, at [facility], s/p chemo in the past , had 5 years of tamoxifen, then chemo-pause and then started on letrozole which has a side effect of osteopenia, has been on it for >7y. At this time, sees oncologist for f/u --> obtain CA125 which was slightly elevated at 7.2 --> skeletal survey 10v is pending eval for mets if patient able to tolerate --> d/c letrozole at this time #. Anemia due to underlying chronic disease. Anemia workup at this time has been reviewed. --> ferritin is elevated, therefore related to chronic disease --> transfuse if hgb <7, standing order #. Leukopenia likely related to recent treatment, chemo --> administer neupogen if ANC<1000 #. Humeral b/l pathological fracture. Again to be seen by Orthopedic Surgery. --> ortho consult pending, potential transfer to higher level of care #. Osteopenia potentially secondary to letrozole #. Hypercalcemia, could be related to either malignancy and/or any other process. --> Tumor markers pending as well as skeletal survey, which has been ordered. --> consider endo eval #. Arm pain. from fracture, seen by pain management Subjective Constitutional: Denies: no symptoms, chills, diaphoresis, fever, malaise, weakness, other HEENT: Denies: no symptoms, eye pain, blurred vision, tearing, double vision, ear pain, ear discharge, nose pain, nose congestion, throat pain, throat swelling, mouth pain, mouth swelling, other Cardiovascular: Denies: no symptoms, chest pain, edema, irregular heart rate, lightheadedness, palpitations, syncope, other Respiratory: Denies: no symptoms, cough, orthopnea, shortness of breath, SOB with excertion, SOB at rest, sputum, stridor, wheezing, other Gastrointestinal/Abdominal: Denies: no symptoms, abdomen distended, abdominal pain, black stools, tarry stools, blood in stool, constipated, diarrhea, difficulty swallowing, nausea, poor appetite, poor fluid intake, rectal bleeding , vomiting, other Genitourinary: Denies: no symptoms, burning, discharge, frequency, flank pain, hematuria, incontinence, pain, urgency, other Neurologic/Psychiatric: Denies: no symptoms, anxiety, depressed, emotional problems, headache, numbness, paresthesia, pre-existing deficit, seizure, tingling, tremors, weakness, other Endocrine: Denies: no symptoms, excessive sweating, flushing, intolerance to cold, intolerance to heat, increased hunger, increased thirst, increased urine, unexplained weight gain, unexplained weight loss, other Hematologic/Lymphatic: Denies: no symptoms, anemia, easy bleeding, easy bruising, other Allergies: Coded Allergies: No Known Allergies (Unverified , 08/21/17) Subjective Patient seen resting in bed, wbc slightly lower this am Objective Last 24 Hour Vital Signs Date Time Temp Pulse Resp B/P (MAP) Pulse Ox O2 Delivery O2 Flow Rate FiO2 08/27/17 08:00 98.5 86 19 109/58 96 98.5 08/27/17 04:31 98.2 86 18 152/74 96 98.2 08/27/17 00:05 98.1 90 19 146/60 98 98.1 08/26/17 20:32 98.3 92 18 156/63 98 98.3 08/26/17 15:48 98.2 82 18 143/65 98 Room Air 98.2 08/26/17 12:59 98.1 83 18 142/57 96 Room Air 98.1 08/26/17 10:50 98.2 08/26/17 10:22 98.4 Intake and Output 08/26/17 08/27/17 19:00 07:00 Intake Total 1700 ml 480 ml Output Total 1500 ml 1300 ml Balance 200 ml -820 ml Intake Oral 1200 ml 480 ml IV Total 500 ml Output Urine Total 1500 ml 1300 ml # Voids 2 Laboratory Tests 08/26/17 21:30: Vancomycin Level Trough 19.2H 08/27/17 05:20: White Blood Count 2.8L, Red Blood Count 2.38L, Hemoglobin 7.3L, Hematocrit 22.5L , Mean Corpuscular Volume 95, Mean Corpuscular Hemoglobin 30.7, Mean Corpuscular Hemoglobin Concent 32.4, Red Cell Distribution Width 12.6, Platelet Count 175, Mean Platelet Volume 5.4L, Neutrophils (%) (Auto) , Lymphocytes (%) ( Auto) , Monocytes (%) (Auto) , Eosinophils (%) (Auto) , Basophils (%) (Auto) , Neutrophils % (Manual) [Pending], Lymphocytes % (Manual) [Pending], Platelet Estimate [Pending], Platelet Morphology [Pending], Sodium Level 140, Potassium Level 4.2, Chloride Level 105, Carbon Dioxide Level 27, Anion Gap 9, Blood Urea Nitrogen 15, Creatinine 1.2, Estimat Glomerular Filtration Rate 55.6, Glucose Level 94, Uric Acid 6.4, Calcium Level 8.6, Phosphorus Level 3.6, Total Bilirubin 0.5, Aspartate Amino Transf (AST/SGOT) 38H, Alanine Aminotransferase ( ALT/SGPT) 45, Alkaline Phosphatase 102, C-Reactive Protein, Quantitative 3.3H, Pro-B-Type Natriuretic Peptide 255H, Total Protein 6.2L, Albumin 2.4L, Globulin 3.8, Albumin/Globulin Ratio 0.6L Height (Feet): 5 Height (Inches): 9.00 Weight (Pounds): 290 General Appearance: alert EENT: normal ENT inspection Neck: normal alignment Cardiovascular: regular rhythm Respiratory/Chest: no respiratory distress Abdomen: no organomegaly Extremities: non-tender Edema: 1+ Leg (L), 1+ Leg (R) 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
--- NOTE | 2017-08-27 09:14 | General Progress Note ---
Assessment/Plan Assessment/Plan (1) B/L shoulder pain (2) Left humeral neck fracture (3) Proximal right humerus fracture Patient to be continued on Dilaudid, Morphine and [place]. D/w Dr. Farfan and he concurred Subjective Date patient seen: August 27, 2017 Time patient seen: 07:30 - am Allergies: Coded Allergies: No Known Allergies (Unverified , 08/21/17) Subjective Constitutional: Reports: no symptoms Eye: Reports: no symptoms ENT: Reports: no symptoms Respiratory: Reports: no symptoms Cardiovascular: Reports: no symptoms Gastrointestinal: Reports: no symptoms Genitourinary: Reports: no symptoms Musculoskeletal: Reports: joint pain - b/l shoulder pain Skin: Reports: no symptoms Psychiatric: Reports: no symptoms Neurological: Reports: no symptoms Endocrine: Reports: no symptoms Hematologic/Lymphatic: Reports: no symptoms Subjective Pain continues to fluctuate with movement. At this time is in bed showing no signs of pain or distress. The pain is controlled on the [place] and Morphine. Is looking forward to PT. Objective Last 24 Hour Vital Signs Date Time Temp Pulse Resp B/P (MAP) Pulse Ox O2 Delivery O2 Flow Rate FiO2 08/27/17 08:00 98.5 86 19 109/58 96 98.5 08/27/17 04:31 98.2 86 18 152/74 96 98.2 08/27/17 00:05 98.1 90 19 146/60 98 98.1 08/26/17 20:32 98.3 92 18 156/63 98 98.3 08/26/17 15:48 98.2 82 18 143/65 98 Room Air 98.2 08/26/17 12:59 98.1 83 18 142/57 96 Room Air 98.1 08/26/17 10:50 98.2 08/26/17 10:22 98.4 Intake and Output 08/26/17 08/27/17 19:00 07:00 Intake Total 1700 ml 480 ml Output Total 1500 ml 1300 ml Balance 200 ml -820 ml Intake Oral 1200 ml 480 ml IV Total 500 ml Output Urine Total 1500 ml 1300 ml # Voids 2 Laboratory Tests 08/26/17 21:30: Vancomycin Level Trough 19.2H 08/27/17 05:20: White Blood Count 2.8L, Red Blood Count 2.38L, Hemoglobin 7.3L, Hematocrit 22.5L , Mean Corpuscular Volume 95, Mean Corpuscular Hemoglobin 30.7, Mean Corpuscular Hemoglobin Concent 32.4, Red Cell Distribution Width 12.6, Platelet Count 175, Mean Platelet Volume 5.4L, Neutrophils (%) (Auto) , Lymphocytes (%) ( Auto) , Monocytes (%) (Auto) , Eosinophils (%) (Auto) , Basophils (%) (Auto) , Neutrophils % (Manual) [Pending], Lymphocytes % (Manual) [Pending], Platelet Estimate [Pending], Platelet Morphology [Pending], Sodium Level 140, Potassium Level 4.2, Chloride Level 105, Carbon Dioxide Level 27, Anion Gap 9, Blood Urea Nitrogen 15, Creatinine 1.2, Estimat Glomerular Filtration Rate 55.6, Glucose Level 94, Uric Acid 6.4, Calcium Level 8.6, Phosphorus Level 3.6, Total Bilirubin 0.5, Aspartate Amino Transf (AST/SGOT) 38H, Alanine Aminotransferase ( ALT/SGPT) 45, Alkaline Phosphatase 102, C-Reactive Protein, Quantitative 3.3H, Pro-B-Type Natriuretic Peptide 255H, Total Protein 6.2L, Albumin 2.4L, Globulin 3.8, Albumin/Globulin Ratio 0.6L Height (Feet): 5 Height (Inches): 9.00 Weight (Pounds): 290 Objective General Appearance: no apparent distress, alert, overweight HEENT: PERRL, EOMI Neck: non-tender, normal alignment Respiratory/Chest: lungs clear, normal breath sounds Cardiovascular/Chest: normal rate, regular rhythm Abdomen: non tender, soft Extremities: other - b/l shoulders tenderness to palpation with reduced ROM Skin Exam: normal pigmentation, warm/dry Neurologic: alert, oriented x 3, responsive ARJUN NGUYỄN PFortunato August 27, 2017 09:14
[2017-08-27] MEDS: Magnesium Oxide 400mg tab ORAL SCH ×3 (09:20→17:29)
[2017-08-27] MEDS: Docusate 100mg cap ORAL SCH ×3 (09:20→17:29)
[2017-08-27] MEDS: Vancomycin 1gm/D5W 275ml IVPB SCH ×2 (09:30)
[2017-08-27] MEDS ORDERED: Acetaminophen 500mg (ES) tab ORAL ONE (10:00)
--- NOTE | 2017-08-27 11:54 | Infectious Diseases Prog Note ---
Assessment/Plan Assessment/Plan A; Sepsis/ SIRS Fever is resolved Bilateral humeral fracture Hypercalcemia Morbid obesity Anemia P: Continue Rocephin , discontinue Vancomycin will f/u cultures Subjective ROS Limited/Unobtainable: No Constitutional: Reports: no symptoms Respiratory: Reports: no symptoms Cardiovascular: Reports: no symptoms Gastrointestinal/Abdominal: Reports: no symptoms Musculoskeletal: Reports: pain, other - in arms Allergies: Coded Allergies: No Known Allergies (Unverified , 08/21/17) Objective Vital Signs Last 24 Hour Vital Signs Date Time Temp Pulse Resp B/P (MAP) Pulse Ox O2 Delivery O2 Flow Rate FiO2 08/27/17 08:00 98.5 86 19 109/58 96 98.5 08/27/17 04:31 98.2 86 18 152/74 96 98.2 08/27/17 00:05 98.1 90 19 146/60 98 98.1 08/26/17 20:32 98.3 92 18 156/63 98 98.3 08/26/17 15:48 98.2 82 18 143/65 98 Room Air 98.2 08/26/17 12:59 98.1 83 18 142/57 96 Room Air 98.1 Height (Feet): 5 Height (Inches): 9.00 Weight (Pounds): 290 General Appearance: no acute distress HEENT: mucous membranes moist Respiratory/Chest: lungs clear Cardiovascular: normal rate Abdomen: soft, non tender Extremities: no edema, other - bilateral arm slings Neurologic/Psychiatric: alert, oriented x 3, responsive Microbiology Date/Time Source Procedure Growth Status 08/25/17 00:55 Blood Blood Culture - Preliminary NO GROWTH AFTER 48 HOURS Resulted 08/25/17 00:45 Blood Blood Culture - Preliminary NO GROWTH AFTER 48 HOURS Resulted Laboratory Tests Test 08/26/17 21:30 08/27/17 05:20 Vancomycin Level Trough 19.2 ug/mL (5.0-12.0) H White Blood Count 2.8 K/UL (4.8-10.8) L Red Blood Count 2.38 M/UL (4.20-5.40) L Hemoglobin 7.3 G/DL (12.0-16.0) L Hematocrit 22.5 % (37.0-47.0) L Mean Corpuscular Volume 95 FL (80-99) Mean Corpuscular Hemoglobin 30.7 PG (27.0-31.0) Mean Corpuscular Hemoglobin Concent 32.4 G/DL (32.0-36.0) Red Cell Distribution Width 12.6 % (11.6-14.8) Platelet Count 175 K/UL (150-450) Mean Platelet Volume 5.4 FL (6.5-10.1) L Neutrophils (%) (Auto) % (45.0-75.0) Lymphocytes (%) (Auto) % (20.0-45.0) Monocytes (%) (Auto) % (1.0-10.0) Eosinophils (%) (Auto) % (0.0-3.0) Basophils (%) (Auto) % (0.0-2.0) Differential Total Cells Counted 100 Neutrophils % (Manual) 55 % (45-75) Lymphocytes % (Manual) 36 % (20-45) Monocytes % (Manual) 5 % (1-10) Eosinophils % (Manual) 4 % (0-3) H Basophils % (Manual) 0 % (0-2) Band Neutrophils 0 % (0-8) Platelet Estimate Adequate Platelet Morphology Normal Hypochromasia 1+ Sodium Level 140 MMOL/L (136-145) Potassium Level 4.2 MMOL/L (3.5-5.1) Chloride Level 105 MMOL/L (98-107) Carbon Dioxide Level 27 MMOL/L (21-32) Anion Gap 9 mmol/L (5-15) Blood Urea Nitrogen 15 mg/dL (7-18) Creatinine 1.2 MG/DL (0.55-1.30) Estimat Glomerular Filtration Rate 55.6 mL/min (>60) Glucose Level 94 MG/DL (74-106) Uric Acid 6.4 MG/DL (2.6-7.2) Calcium Level 8.6 MG/DL (8.5-10.1) Phosphorus Level 3.6 MG/DL (2.5-4.9) Total Bilirubin 0.5 MG/DL (0.2-1.0) Aspartate Amino Transf (AST/SGOT) 38 U/L (15-37) H Alanine Aminotransferase (ALT/SGPT) 45 U/L (12-78) Alkaline Phosphatase 102 U/L (46-116) C-Reactive Protein, Quantitative 3.3 mg/dL (0.00-0.90) H Pro-B-Type Natriuretic Peptide 255 pg/mL (0-125) H Total Protein 6.2 G/DL (6.4-8.2) L Albumin 2.4 G/DL (3.4-5.0) L Globulin 3.8 g/dL Albumin/Globulin Ratio 0.6 (1.0-2.7) L Current Medications Medications (Trade) Dose Ordered Sig/Hernan Route PRN Reason Start Time Stop Time Status Last Admin Dose Admin Acetaminophen (Tylenol) 650 mg Q4H PRN ORAL Mild Pain/Temp >100.0 08/22/17 01:00 09/21/17 00:59 08/26/17 00:45 Acetaminophen/ Hydrocodone Bitart ([place] 5/325) 1 tab Q6H PRN ORAL Moderate Pain (Pain Scale 4-6) 08/23/17 09:26 08/30/17 09:25 08/26/17 22:46 Ceftriaxone Sodium 1 gm/ Dextrose 110 ml @ 220 mls/hr Q24H IVPB 08/24/17 21:00 08/30/17 20:59 08/26/17 21:18 Docusate Sodium (Colace) 100 mg THREE TIMES A DAY ORAL 08/22/17 13:00 09/21/17 12:59 08/27/17 09:20 Famotidine (Pepcid) 20 mg BID ORAL 08/22/17 10:30 09/21/17 10:29 08/27/17 09:20 Hydromorphone HCl (Dilaudid) 1 mg DAILY PRN IVP physical therapy 08/26/17 17:45 09/02/17 17:44 Magnesium Oxide (Mag-Ox 400mg) 400 mg THREE TIMES A DAY ORAL 08/24/17 13:00 09/23/17 12:59 08/27/17 09:20 Morphine Sulfate (Morphine Sulfate) 4 mg Q4H PRN IVP Severe Pain (Pain Scale 7-10) 08/24/17 20:00 08/29/17 19:59 08/27/17 06:17 Vancomycin HCl (Vanco rx to dose) 1 ea DAILY PRN MISC Per rx protocol 08/25/17 09:00 09/24/17 08:59 Vancomycin HCl 1 gm/Dextrose 275 ml @ 183.708 mls/hr Q12H IVPB 08/25/17 22:00 08/30/17 21:59 08/27/17 09:30 ROMÁN FINCH August 27, 2017 11:54
[2017-08-27 12:00] VITALS: BP 146/84
--- NOTE | 2017-08-27 12:18 | General Progress Note ---
Assessment/Plan Problem List: (1) Fracture, humerus closed, shaft ICD Codes: S42.309A - Unspecified fracture of shaft of humerus, unspecified arm , initial encounter for closed fracture SNOMED: 21455997, 611391113 Qualifiers: Qualified Codes: S42.321A - Displaced transverse fracture of shaft of humerus, right arm, initial encounter for closed fracture (2) Humerus surgical neck fracture ICD Codes: S42.213A - Unspecified displaced fracture of surgical neck of unspecified humerus, initial encounter for closedfracture SNOMED: 477411222, 007997877 Qualifiers: Qualified Codes: S42.222A - 2-part displaced fracture of surgical neck of left humerus, initial encounter for closed fracture (3) Morbid obesity with BMI of 40.0-44.9, adult ICD Codes: E66.01 - Morbid (severe) obesity due to excess calories; Z68.41 - Body mass index (BMI) 40.0-44.9, adult SNOMED: 037312875, 253002152 (4) Bilateral humeral fractures ICD Codes: S42.301A - Unspecified fracture of shaft of humerus, right arm, initial encounter for closed fracture; S42.302A - Unspecified fracture of shaft of humerus, left arm, initial encounter for closed fracture SNOMED: 78627362 (5) Breast cancer ICD Codes: C50.919 - Malignant neoplasm of unspecified site of unspecified female breast SNOMED: 491114126 (6) Hypercalcemia ICD Codes: E83.52 - Hypercalcemia SNOMED: 84067876 Status: progressing Assessment/Plan afebrile today awaiting transfer to higher level for orthopedic surgery repair since fx is complicated per dr manriquez morbid obesity bilat humeral fracture no wheezing no rash abx per id Subjective Allergies: Coded Allergies: No Known Allergies (Unverified , 08/21/17) Subjective pain ue where the fx is Objective Last 24 Hour Vital Signs Date Time Temp Pulse Resp B/P (MAP) Pulse Ox O2 Delivery O2 Flow Rate FiO2 08/27/17 08:00 98.5 86 19 109/58 96 98.5 08/27/17 04:31 98.2 86 18 152/74 96 98.2 08/27/17 00:05 98.1 90 19 146/60 98 98.1 08/26/17 20:32 98.3 92 18 156/63 98 98.3 08/26/17 15:48 98.2 82 18 143/65 98 Room Air 98.2 08/26/17 12:59 98.1 83 18 142/57 96 Room Air 98.1 Intake and Output 08/26/17 08/27/17 19:00 07:00 Intake Total 1700 ml 480 ml Output Total 1500 ml 1300 ml Balance 200 ml -820 ml Intake Oral 1200 ml 480 ml IV Total 500 ml Output Urine Total 1500 ml 1300 ml # Voids 2 Laboratory Tests 08/26/17 21:30: Vancomycin Level Trough 19.2H 08/27/17 05:20: White Blood Count 2.8L, Red Blood Count 2.38L, Hemoglobin 7.3L, Hematocrit 22.5L , Mean Corpuscular Volume 95, Mean Corpuscular Hemoglobin 30.7, Mean Corpuscular Hemoglobin Concent 32.4, Red Cell Distribution Width 12.6, Platelet Count 175, Mean Platelet Volume 5.4L, Neutrophils (%) (Auto) , Lymphocytes (%) ( Auto) , Monocytes (%) (Auto) , Eosinophils (%) (Auto) , Basophils (%) (Auto) , Differential Total Cells Counted 100, Neutrophils % (Manual) 55, Lymphocytes % ( Manual) 36, Monocytes % (Manual) 5, Eosinophils % (Manual) 4H, Basophils % ( Manual) 0, Band Neutrophils 0, Platelet Estimate Adequate, Platelet Morphology Normal, Hypochromasia 1+, Sodium Level 140, Potassium Level 4.2, Chloride Level 105, Carbon Dioxide Level 27, Anion Gap 9, Blood Urea Nitrogen 15, Creatinine 1.2, Estimat Glomerular Filtration Rate 55.6, Glucose Level 94, Uric Acid 6.4, Calcium Level 8.6, Phosphorus Level 3.6, Total Bilirubin 0.5, Aspartate Amino Transf (AST/SGOT) 38H, Alanine Aminotransferase (ALT/SGPT) 45, Alkaline Phosphatase 102, C-Reactive Protein, Quantitative 3.3H, Pro-B-Type Natriuretic Peptide 255H, Total Protein 6.2L, Albumin 2.4L, Globulin 3.8, Albumin/Globulin Ratio 0.6L Height (Feet): 5 Height (Inches): 9.00 Weight (Pounds): 290 Cardiovascular: normal rate Respiratory/Chest: lungs clear Amparo Pa MD August 27, 2017 12:18
--- NOTE | 2017-08-27 15:06 | Nephrology Progress Note ---
Assessment/Plan Problem List: (1) Hypercalcemia (2) Fracture, humerus closed, shaft (3) Humerus surgical neck fracture (4) Morbid obesity with BMI of 40.0-44.9, adult (5) Anemia Assessment Hypercalcemia improved Anemia worsened UTI Fracture, humerus closed, shaft Humerus surgical neck fracture Morbid obesity with BMI of 40.0-44.9, adult Proteinuria Plan consider transfusion decrease IV fluid AREDIA given 60 mg 08/23 fine- Anemia yanez Keep BP in check Per ortho Subjective ROS Limited/Unobtainable: No Constitutional: Reports: malaise Objective Objective Last 24 Hour Vital Signs Date Time Temp Pulse Resp B/P (MAP) Pulse Ox O2 Delivery O2 Flow Rate FiO2 08/27/17 13:44 98.9 08/27/17 12:45 98.8 08/27/17 12:22 98.5 08/27/17 12:00 98.8 88 19 146/84 96 98.8 08/27/17 08:00 98.5 86 19 109/58 96 98.5 08/27/17 04:31 98.2 86 18 152/74 96 98.2 08/27/17 00:05 98.1 90 19 146/60 98 98.1 08/26/17 20:32 98.3 92 18 156/63 98 98.3 08/26/17 15:48 98.2 82 18 143/65 98 Room Air 98.2 Intake and Output 08/26/17 08/27/17 19:00 07:00 Intake Total 1700 ml 480 ml Output Total 1500 ml 1300 ml Balance 200 ml -820 ml Intake Oral 1200 ml 480 ml IV Total 500 ml Output Urine Total 1500 ml 1300 ml # Voids 2 Laboratory Tests 08/26/17 21:30: Vancomycin Level Trough 19.2H 08/27/17 05:20: White Blood Count 2.8L, Red Blood Count 2.38L, Hemoglobin 7.3L, Hematocrit 22.5L , Mean Corpuscular Volume 95, Mean Corpuscular Hemoglobin 30.7, Mean Corpuscular Hemoglobin Concent 32.4, Red Cell Distribution Width 12.6, Platelet Count 175, Mean Platelet Volume 5.4L, Neutrophils (%) (Auto) , Lymphocytes (%) ( Auto) , Monocytes (%) (Auto) , Eosinophils (%) (Auto) , Basophils (%) (Auto) , Differential Total Cells Counted 100, Neutrophils % (Manual) 55, Lymphocytes % ( Manual) 36, Monocytes % (Manual) 5, Eosinophils % (Manual) 4H, Basophils % ( Manual) 0, Band Neutrophils 0, Platelet Estimate Adequate, Platelet Morphology Normal, Hypochromasia 1+, Sodium Level 140, Potassium Level 4.2, Chloride Level 105, Carbon Dioxide Level 27, Anion Gap 9, Blood Urea Nitrogen 15, Creatinine 1.2, Estimat Glomerular Filtration Rate 55.6, Glucose Level 94, Uric Acid 6.4, Calcium Level 8.6, Phosphorus Level 3.6, Total Bilirubin 0.5, Aspartate Amino Transf (AST/SGOT) 38H, Alanine Aminotransferase (ALT/SGPT) 45, Alkaline Phosphatase 102, C-Reactive Protein, Quantitative 3.3H, Pro-B-Type Natriuretic Peptide 255H, Total Protein 6.2L, Albumin 2.4L, Globulin 3.8, Albumin/Globulin Ratio 0.6L Height (Feet): 5 Height (Inches): 9.00 Weight (Pounds): 290 General Appearance: no apparent distress Objective no change WINIFRED PALACIOS August 27, 2017 15:06
[2017-08-27 16:00] VITALS: BP 144/68
[2017-08-27 20:02] VITALS: BP 155/68
[2017-08-27] MEDS: cefTRIAXone 1 GM in D5W 110 ML IVPB SCH (20:50)
[2017-08-27] MEDS: Norco 5mg/325mg tab ORAL PRN (23:02)
[2017-08-28] VITALS: BP 132/60
[2017-08-28] MEDS: Morphine Sulfate 4mg/ml Inj IVP PRN (04:22)
[2017-08-28 04:28] VITALS: BP 147/64
[2017-08-28 05:51] LABS: BASOPHILS % (AUTO) 0.6 % (0.0-2.0); EOSINOPHILS % (AUTO) 3.3 % (0.0-3.0); HEMATOCRIT 24.1 % (37.0-47.0); LYMPHOCYTES % (AUTO) 15.1 % (20.0-45.0); MEAN CORPUSCULAR VOLUME 93 FL (80-99); MONOCYTES % (AUTO) 8.8 % (1.0-10.0); NEUTROPHILS % (AUTO) 72.3 % (45.0-75.0); PLATELET COUNT 179 K/UL (150-450); RED CELL DISTRIBUTION WIDTH 12.7 % (11.6-14.8); WHITE BLOOD COUNT 3.7 K/UL (4.8-10.8)
[2017-08-28 08:00] VITALS: BP 140/70
--- NOTE | 2017-08-28 08:39 | General Progress Note ---
Assessment/Plan Assessment/Plan #. Breast cancer. Diagnosed and treated in 2000, at [facility], s/p chemo in the past , had 5 years of tamoxifen, then chemo-pause and then started on letrozole which has a side effect of osteopenia, has been on it for >7y. At this time, sees oncologist for f/u --> obtain CA125 which was slightly elevated at 7.2 --> skeletal survey 10v is pending eval for mets if patient able to tolerate --> d/c letrozole at this time #. Anemia due to underlying chronic disease. Anemia workup at this time has been reviewed. --> ferritin is elevated, therefore related to chronic disease --> transfuse if hgb <7, standing order #. Leukopenia likely related to recent treatment, chemo --> administer neupogen if ANC<1000 #. Humeral b/l pathological fracture. Again to be seen by Orthopedic Surgery. --> ortho consult pending, potential transfer to higher level of care #. Osteopenia potentially secondary to letrozole #. Hypercalcemia, could be related to either malignancy and/or any other process. --> Tumor markers pending as well as skeletal survey, which has been ordered. --> consider endo eval #. Arm pain. from fracture, seen by pain management Subjective Constitutional: Denies: no symptoms, chills, diaphoresis, fever, malaise, weakness, other HEENT: Denies: no symptoms, eye pain, blurred vision, tearing, double vision, ear pain, ear discharge, nose pain, nose congestion, throat pain, throat swelling, mouth pain, mouth swelling, other Cardiovascular: Denies: no symptoms, chest pain, edema, irregular heart rate, lightheadedness, palpitations, syncope, other Respiratory: Denies: no symptoms, cough, orthopnea, shortness of breath, SOB with excertion, SOB at rest, sputum, stridor, wheezing, other Gastrointestinal/Abdominal: Denies: no symptoms, abdomen distended, abdominal pain, black stools, tarry stools, blood in stool, constipated, diarrhea, difficulty swallowing, nausea, poor appetite, poor fluid intake, rectal bleeding , vomiting, other Genitourinary: Denies: no symptoms, burning, discharge, frequency, flank pain, hematuria, incontinence, pain, urgency, other Neurologic/Psychiatric: Denies: no symptoms, anxiety, depressed, emotional problems, headache, numbness, paresthesia, pre-existing deficit, seizure, tingling, tremors, weakness, other Endocrine: Denies: no symptoms, excessive sweating, flushing, intolerance to cold, intolerance to heat, increased hunger, increased thirst, increased urine, unexplained weight gain, unexplained weight loss, other Hematologic/Lymphatic: Denies: no symptoms, anemia, easy bleeding, easy bruising, other Allergies: Coded Allergies: No Known Allergies (Unverified , 08/21/17) Subjective pending transfer, CM has seen her Objective Last 24 Hour Vital Signs Date Time Temp Pulse Resp B/P (MAP) Pulse Ox O2 Delivery O2 Flow Rate FiO2 08/28/17 08:00 99.0 87 20 140/70 96 99.0 08/28/17 04:28 98.8 87 18 147/64 96 98.8 08/28/17 00:00 98.4 92 18 132/60 98 98.4 08/27/17 20:02 98.5 89 18 155/68 95 98.5 08/27/17 16:00 98.8 79 18 144/68 98 98.8 08/27/17 13:44 98.9 08/27/17 12:45 98.8 08/27/17 12:22 98.5 08/27/17 12:00 98.8 88 19 146/84 96 98.8 Intake and Output 08/27/17 08/28/17 19:00 07:00 Intake Total 660 ml 480 ml Output Total 1450 ml 1200 ml Balance -790 ml -720 ml Intake Oral 660 ml 480 ml Output Urine Total 1450 ml 1200 ml # Voids 1 Laboratory Tests 08/28/17 04:55: White Blood Count 3.7L, Red Blood Count 2.60L, Hemoglobin 8.0L, Hematocrit 24.1L , Mean Corpuscular Volume 93, Mean Corpuscular Hemoglobin 30.8, Mean Corpuscular Hemoglobin Concent 33.2, Red Cell Distribution Width 12.7, Platelet Count 179, Mean Platelet Volume 5.3L, Neutrophils (%) (Auto) 72.3, Lymphocytes ( %) (Auto) 15.1L, Monocytes (%) (Auto) 8.8, Eosinophils (%) (Auto) 3.3H, Basophils (%) (Auto) 0.6 Height (Feet): 5 Height (Inches): 9.00 Weight (Pounds): 290 General Appearance: no apparent distress EENT: TMs normal Neck: supple Respiratory/Chest: normal breath sounds Abdomen: non tender Extremities: non-tender Edema: 1+ Leg (L), 1+ Leg (R) Edema: mild edema Joselito Steele MD August 28, 2017 08:39
--- NOTE | 2017-08-28 08:56 | General Progress Note ---
Assessment/Plan Assessment/Plan (1) B/L shoulder pain (2) Left humeral neck fracture (3) Proximal right humerus fracture Patient to be continued on Dilaudid, Morphine and Sanders. D/w Dr. Farfan and he concurred Subjective Date patient seen: August 28, 2017 Time patient seen: 07:45 - am Allergies: Coded Allergies: No Known Allergies (Unverified , 08/21/17) Subjective Constitutional: Reports: no symptoms Eye: Reports: no symptoms ENT: Reports: no symptoms Respiratory: Reports: no symptoms Cardiovascular: Reports: no symptoms Gastrointestinal: Reports: no symptoms Genitourinary: Reports: no symptoms Musculoskeletal: Reports: joint pain - b/l shoulder pain Skin: Reports: no symptoms Psychiatric: Reports: no symptoms Neurological: Reports: no symptoms Endocrine: Reports: no symptoms Hematologic/Lymphatic: Reports: no symptoms Subjective She is in bed and has no signs of pain or distress. Patient reports that the pain continues to be severe with PT and has been controlled on the medication. Transfer still pending. Objective Last 24 Hour Vital Signs Date Time Temp Pulse Resp B/P (MAP) Pulse Ox O2 Delivery O2 Flow Rate FiO2 08/28/17 08:00 99.0 87 20 140/70 96 99.0 08/28/17 04:28 98.8 87 18 147/64 96 98.8 08/28/17 00:00 98.4 92 18 132/60 98 98.4 08/27/17 20:02 98.5 89 18 155/68 95 98.5 08/27/17 16:00 98.8 79 18 144/68 98 98.8 08/27/17 13:44 98.9 08/27/17 12:45 98.8 08/27/17 12:22 98.5 08/27/17 12:00 98.8 88 19 146/84 96 98.8 Intake and Output 08/27/17 08/28/17 19:00 07:00 Intake Total 660 ml 480 ml Output Total 1450 ml 1200 ml Balance -790 ml -720 ml Intake Oral 660 ml 480 ml Output Urine Total 1450 ml 1200 ml # Voids 1 Laboratory Tests 08/28/17 04:55: White Blood Count 3.7L, Red Blood Count 2.60L, Hemoglobin 8.0L, Hematocrit 24.1L , Mean Corpuscular Volume 93, Mean Corpuscular Hemoglobin 30.8, Mean Corpuscular Hemoglobin Concent 33.2, Red Cell Distribution Width 12.7, Platelet Count 179, Mean Platelet Volume 5.3L, Neutrophils (%) (Auto) 72.3, Lymphocytes ( %) (Auto) 15.1L, Monocytes (%) (Auto) 8.8, Eosinophils (%) (Auto) 3.3H, Basophils (%) (Auto) 0.6 Height (Feet): 5 Height (Inches): 9.00 Weight (Pounds): 290 Objective General Appearance: no apparent distress, alert, overweight HEENT: PERRL, EOMI Neck: non-tender, normal alignment Respiratory/Chest: lungs clear, normal breath sounds Cardiovascular/Chest: normal rate, regular rhythm Abdomen: non tender, soft Extremities: other - b/l shoulders tenderness to palpation with reduced ROM Skin Exam: normal pigmentation, warm/dry Neurologic: alert, oriented x 3, responsive ARJUN NGUYỄN August 28, 2017 08:56
[2017-08-28] MEDS: Docusate 100mg cap ORAL SCH ×3 (09:10→17:33)
[2017-08-28] MEDS: Magnesium Oxide 400mg tab ORAL SCH ×3 (09:10→17:33)
--- NOTE | 2017-08-28 10:39 | Nephrology Progress Note ---
Assessment/Plan Problem List: (1) Hypercalcemia (2) Fracture, humerus closed, shaft (3) Humerus surgical neck fracture (4) Morbid obesity with BMI of 40.0-44.9, adult (5) Anemia Assessment Hypercalcemia improved Anemia worsened UTI Fracture, humerus closed, shaft Humerus surgical neck fracture Morbid obesity with BMI of 40.0-44.9, adult Proteinuria Plan consider transfusion decrease IV fluid AREDIA given 60 mg 08/23 fine- Anemia yanez Keep BP in check Per ortho Subjective ROS Limited/Unobtainable: No Constitutional: Reports: malaise Objective Objective Last 24 Hour Vital Signs Date Time Temp Pulse Resp B/P (MAP) Pulse Ox O2 Delivery O2 Flow Rate FiO2 08/28/17 08:00 99.0 87 20 140/70 96 99.0 08/28/17 04:28 98.8 87 18 147/64 96 98.8 08/28/17 00:00 98.4 92 18 132/60 98 98.4 08/27/17 20:02 98.5 89 18 155/68 95 98.5 08/27/17 16:00 98.8 79 18 144/68 98 98.8 08/27/17 13:44 98.9 08/27/17 12:45 98.8 08/27/17 12:22 98.5 08/27/17 12:00 98.8 88 19 146/84 96 98.8 Intake and Output 08/27/17 08/28/17 19:00 07:00 Intake Total 660 ml 480 ml Output Total 1450 ml 1200 ml Balance -790 ml -720 ml Intake Oral 660 ml 480 ml Output Urine Total 1450 ml 1200 ml # Voids 1 Laboratory Tests 08/28/17 04:55: White Blood Count 3.7L, Red Blood Count 2.60L, Hemoglobin 8.0L, Hematocrit 24.1L , Mean Corpuscular Volume 93, Mean Corpuscular Hemoglobin 30.8, Mean Corpuscular Hemoglobin Concent 33.2, Red Cell Distribution Width 12.7, Platelet Count 179, Mean Platelet Volume 5.3L, Neutrophils (%) (Auto) 72.3, Lymphocytes ( %) (Auto) 15.1L, Monocytes (%) (Auto) 8.8, Eosinophils (%) (Auto) 3.3H, Basophils (%) (Auto) 0.6 Height (Feet): 5 Height (Inches): 9.00 Weight (Pounds): 290 General Appearance: no apparent distress Objective no change WINIFRED PALACIOS August 28, 2017 10:39
--- NOTE | 2017-08-28 11:50 | Infectious Diseases Prog Note ---
Assessment/Plan Assessment/Plan A; Sepsis/ SIRS Fever is resolved Bilateral humeral fracture Hypercalcemia Morbid obesity Anemia Constipation P: Continue Rocephin X 1 day will f/u cultures Subjective ROS Limited/Unobtainable: No Constitutional: Reports: no symptoms Respiratory: Reports: productive cough Cardiovascular: Reports: no symptoms Gastrointestinal/Abdominal: Reports: constipation Genitourinary: Reports: no symptoms Allergies: Coded Allergies: No Known Allergies (Unverified , 08/21/17) Objective Vital Signs Last 24 Hour Vital Signs Date Time Temp Pulse Resp B/P (MAP) Pulse Ox O2 Delivery O2 Flow Rate FiO2 08/28/17 08:00 99.0 87 20 140/70 96 99.0 08/28/17 04:28 98.8 87 18 147/64 96 98.8 08/28/17 00:00 98.4 92 18 132/60 98 98.4 08/27/17 20:02 98.5 89 18 155/68 95 98.5 08/27/17 16:00 98.8 79 18 144/68 98 98.8 08/27/17 13:44 98.9 08/27/17 12:45 98.8 08/27/17 12:22 98.5 08/27/17 12:00 98.8 88 19 146/84 96 98.8 Height (Feet): 5 Height (Inches): 9.00 Weight (Pounds): 290 HEENT: mucous membranes moist Respiratory/Chest: lungs clear Cardiovascular: normal rate Abdomen: soft, non tender Extremities: no edema, other - Bilateral arm slings Neurologic/Psychiatric: alert, oriented x 3, responsive Laboratory Tests Test 08/28/17 04:55 White Blood Count 3.7 K/UL (4.8-10.8) L Red Blood Count 2.60 M/UL (4.20-5.40) L Hemoglobin 8.0 G/DL (12.0-16.0) L Hematocrit 24.1 % (37.0-47.0) L Mean Corpuscular Volume 93 FL (80-99) Mean Corpuscular Hemoglobin 30.8 PG (27.0-31.0) Mean Corpuscular Hemoglobin Concent 33.2 G/DL (32.0-36.0) Red Cell Distribution Width 12.7 % (11.6-14.8) Platelet Count 179 K/UL (150-450) Mean Platelet Volume 5.3 FL (6.5-10.1) L Neutrophils (%) (Auto) 72.3 % (45.0-75.0) Lymphocytes (%) (Auto) 15.1 % (20.0-45.0) L Monocytes (%) (Auto) 8.8 % (1.0-10.0) Eosinophils (%) (Auto) 3.3 % (0.0-3.0) H Basophils (%) (Auto) 0.6 % (0.0-2.0) Current Medications Medications (Trade) Dose Ordered Sig/[place] Route PRN Reason Start Time Stop Time Status Last Admin Dose Admin Acetaminophen (Tylenol) 650 mg Q4H PRN ORAL Mild Pain/Temp >100.0 08/22/17 01:00 09/21/17 00:59 08/26/17 00:45 Acetaminophen/ Hydrocodone Bitart ([place] 5/325) 1 tab Q6H PRN ORAL Moderate Pain (Pain Scale 4-6) 08/23/17 09:26 08/30/17 09:25 08/27/17 23:02 Ceftriaxone Sodium 1 gm/ Dextrose 110 ml @ 220 mls/hr Q24H IVPB 08/24/17 21:00 08/30/17 20:59 08/27/17 20:50 Docusate Sodium (Colace) 100 mg THREE TIMES A DAY ORAL 08/22/17 13:00 09/21/17 12:59 08/28/17 09:10 Famotidine (Pepcid) 20 mg BID ORAL 08/22/17 10:30 09/21/17 10:29 08/28/17 09:10 Hydromorphone HCl (Dilaudid) 1 mg DAILY PRN IVP physical therapy 08/26/17 17:45 09/02/17 17:44 Magnesium Oxide (Mag-Ox 400mg) 400 mg THREE TIMES A DAY ORAL 08/24/17 13:00 09/23/17 12:59 08/28/17 09:10 Morphine Sulfate (Morphine Sulfate) 4 mg Q4H PRN IVP Severe Pain (Pain Scale 7-10) 08/24/17 20:00 08/29/17 19:59 08/28/17 04:22 ROMÁN FINCH August 28, 2017 11:50
[2017-08-28 12:00] VITALS: BP 147/71
[2017-08-28 16:00] VITALS: BP 135/65
[2017-08-28 20:23] VITALS: BP 150/71
--- NOTE | 2017-08-28 21:02 | General Progress Note ---
Assessment/Plan Problem List: (1) Fracture, humerus closed, shaft ICD Codes: S42.309A - Unspecified fracture of shaft of humerus, unspecified arm , initial encounter for closed fracture SNOMED: 04222635, 028326125 Qualifiers: Qualified Codes: S42.321A - Displaced transverse fracture of shaft of humerus, right arm, initial encounter for closed fracture (2) Humerus surgical neck fracture ICD Codes: S42.213A - Unspecified displaced fracture of surgical neck of unspecified humerus, initial encounter for closedfracture SNOMED: 561031134, 687962061 Qualifiers: Qualified Codes: S42.222A - 2-part displaced fracture of surgical neck of left humerus, initial encounter for closed fracture (3) Morbid obesity with BMI of 40.0-44.9, adult ICD Codes: E66.01 - Morbid (severe) obesity due to excess calories; Z68.41 - Body mass index (BMI) 40.0-44.9, adult SNOMED: 066162065, 409276678 (4) Bilateral humeral fractures ICD Codes: S42.301A - Unspecified fracture of shaft of humerus, right arm, initial encounter for closed fracture; S42.302A - Unspecified fracture of shaft of humerus, left arm, initial encounter for closed fracture SNOMED: 24711097 (5) Breast cancer ICD Codes: C50.919 - Malignant neoplasm of unspecified site of unspecified female breast SNOMED: 453447437 (6) Hypercalcemia ICD Codes: E83.52 - Hypercalcemia SNOMED: 68603805 Status: progressing Assessment/Plan spoke w accepting today and gave report awaiting transfer to higher level for orthopedic surgery repair since fx is complicated per dr manriquez morbid obesity bilat humeral fracture Subjective ROS Limited/Unobtainable: Yes Allergies: Coded Allergies: No Known Allergies (Unverified , 08/21/17) Subjective pain ue where the fx is Objective Last 24 Hour Vital Signs Date Time Temp Pulse Resp B/P (MAP) Pulse Ox O2 Delivery O2 Flow Rate FiO2 08/28/17 20:23 99.1 91 16 150/71 95 99.1 08/28/17 16:00 98.9 88 19 135/65 96 Room Air 98.9 08/28/17 12:00 99.1 90 20 147/71 96 Room Air 99.1 08/28/17 08:00 99.0 87 20 140/70 96 Room Air 99.0 08/28/17 04:28 98.8 87 18 147/64 96 98.8 08/28/17 00:00 98.4 92 18 132/60 98 98.4 Intake and Output 08/27/17 08/28/17 19:00 07:00 Intake Total 660 ml 480 ml Output Total 1450 ml 1200 ml Balance -790 ml -720 ml Intake Oral 660 ml 480 ml Output Urine Total 1450 ml 1200 ml # Voids 1 Laboratory Tests 08/28/17 04:55: White Blood Count 3.7L, Red Blood Count 2.60L, Hemoglobin 8.0L, Hematocrit 24.1L , Mean Corpuscular Volume 93, Mean Corpuscular Hemoglobin 30.8, Mean Corpuscular Hemoglobin Concent 33.2, Red Cell Distribution Width 12.7, Platelet Count 179, Mean Platelet Volume 5.3L, Neutrophils (%) (Auto) 72.3, Lymphocytes ( %) (Auto) 15.1L, Monocytes (%) (Auto) 8.8, Eosinophils (%) (Auto) 3.3H, Basophils (%) (Auto) 0.6 Height (Feet): 5 Height (Inches): 9.00 Weight (Pounds): 290 Amparo Pa MD August 28, 2017 21:02
[2017-08-28] MEDS: cefTRIAXone 1 GM in D5W 110 ML IVPB SCH (21:09)
[2017-08-28] MEDS: Norco 5mg/325mg tab ORAL PRN (21:57)
[2017-08-29] VITALS (7 sets, daily range): BP systolic 110–165; BP diastolic 49–70
--- NOTE | 2017-08-29 07:59 | General Progress Note ---
Assessment/Plan Status: stable Assessment/Plan #. Breast cancer. Diagnosed and treated in 2000, at [facility], s/p chemo in the past , had 5 years of tamoxifen, then chemo-pause and then started on letrozole which has a side effect of osteopenia, has been on it for >7y. At this time, sees oncologist for f/u --> obtain CA125 which was slightly elevated at 7.2 --> skeletal survey 10v is pending eval for mets if patient able to tolerate --> d/c letrozole at this time #. Anemia due to underlying chronic disease. Anemia workup at this time has been reviewed. --> ferritin is elevated, therefore related to chronic disease --> transfuse if hgb <7, standing order #. Leukopenia likely related to recent treatment, chemo --> administer neupogen if ANC<1000 #. Humeral b/l pathological fracture. Again to be seen by Orthopedic Surgery. --> ortho consult pending, potential transfer to higher level of care #. Osteopenia potentially secondary to letrozole #. Hypercalcemia, could be related to either malignancy and/or any other process. --> Tumor markers pending as well as skeletal survey, which has been ordered. --> consider endo eval #. Arm pain. from fracture, seen by pain management Subjective Date patient seen: August 29, 2017 Allergies: Coded Allergies: No Known Allergies (Unverified , 08/21/17) All Systems: reviewed and negative except above Subjective Pt seen awake and alert. TRINA scale 5/10. In no apparent distress Objective Last 24 Hour Vital Signs Date Time Temp Pulse Resp B/P (MAP) Pulse Ox O2 Delivery O2 Flow Rate FiO2 08/29/17 04:29 98.1 86 16 110/69 95 98.1 08/29/17 00:00 98.3 106 18 141/69 96 98.3 08/28/17 20:23 99.1 91 16 150/71 95 99.1 08/28/17 16:00 98.9 88 19 135/65 96 Room Air 98.9 08/28/17 12:00 99.1 90 20 147/71 96 Room Air 99.1 08/28/17 08:00 99.0 87 20 140/70 96 Room Air 99.0 Intake and Output 5/29/18 5/30/18 19:00 07:00 Intake Total 910 ml Output Total 1550 ml Balance -640 ml Intake Oral 800 ml IV Total 110 ml Output Urine Total 1550 ml Stool Total 0 ml Height (Feet): 5 Height (Inches): 9.00 Weight (Pounds): 290 General Appearance: no apparent distress EENT: normal ENT inspection Neck: supple Cardiovascular: regular rhythm Respiratory/Chest: lungs clear, normal breath sounds Abdomen: non tender Joselito Steele MD August 29, 2017 07:59
[2017-08-29] MEDS: Magnesium Oxide 400mg tab ORAL SCH ×3 (08:30→17:47)
[2017-08-29] MEDS: Docusate 100mg cap ORAL SCH ×3 (08:30→17:47)
--- NOTE | 2017-08-29 09:30 | Diagnostic Imaging Report ---
APPROVED REPORT CPT Code: 02560 Present Symptoms Comments: BILATERAL LEGS PAIN. BILATERAL: Imaging reveals a patent deep venous system bilaterally. There is no evidence of thrombus within the femoral, popliteal or tibial segments. The greater saphenous veins are also within normal limits. Doppler indicates normal spontaneous flow within these segments.
[2017-08-29] MEDS ORDERED: Metoprolol 25mg tab ORAL SCH ×2 (10:15→21:00)
--- NOTE | 2017-08-29 11:55 | Infectious Diseases Prog Note ---
Assessment/Plan Assessment/Plan A; Sepsis/ SIRS Fever is resolved Bilateral humeral fracture Hypercalcemia Morbid obesity Anemia Constipation P: discontinue Rocephin Subjective ROS Limited/Unobtainable: No Constitutional: Reports: no symptoms Respiratory: Reports: no symptoms Cardiovascular: Reports: no symptoms Gastrointestinal/Abdominal: Reports: no symptoms Genitourinary: Reports: no symptoms Musculoskeletal: Reports: pain, other - in arms, controlled Allergies: Coded Allergies: No Known Allergies (Unverified , 08/21/17) Objective Vital Signs Last 24 Hour Vital Signs Date Time Temp Pulse Resp B/P (MAP) Pulse Ox O2 Delivery O2 Flow Rate FiO2 08/29/17 10:16 92 149/66 08/29/17 08:30 90 149/66 08/29/17 08:00 98.3 90 20 165/58 96 Room Air 98.3 08/29/17 04:29 98.1 86 16 110/69 95 98.1 08/29/17 00:00 98.3 106 18 141/69 96 98.3 08/28/17 20:23 99.1 91 16 150/71 95 99.1 08/28/17 16:00 98.9 88 19 135/65 96 Room Air 98.9 08/28/17 12:00 99.1 90 20 147/71 96 Room Air 99.1 Height (Feet): 5 Height (Inches): 9.00 Weight (Pounds): 290 General Appearance: no acute distress HEENT: mucous membranes moist Respiratory/Chest: lungs clear Cardiovascular: normal rate Abdomen: soft, non tender Extremities: no edema, other - bilatral arm slings Neurologic/Psychiatric: alert, oriented x 3, responsive Current Medications Medications (Trade) Dose Ordered Sig/Hernan Route PRN Reason Start Time Stop Time Status Last Admin Dose Admin Acetaminophen (Tylenol) 650 mg Q4H PRN ORAL Mild Pain/Temp >100.0 08/22/17 01:00 09/21/17 00:59 08/26/17 00:45 Acetaminophen/ Hydrocodone Bitart ([place] 5/325) 1 tab Q6H PRN ORAL Moderate Pain (Pain Scale 4-6) 08/23/17 09:26 08/30/17 09:25 08/28/17 21:57 Ceftriaxone Sodium 1 gm/ Dextrose 110 ml @ 220 mls/hr Q24H IVPB 08/24/17 21:00 08/30/17 20:59 08/28/17 21:09 Docusate Sodium (Colace) 100 mg THREE TIMES A DAY ORAL 08/22/17 13:00 09/21/17 12:59 08/29/17 08:30 Famotidine (Pepcid) 20 mg BID ORAL 08/22/17 10:30 09/21/17 10:29 08/29/17 08:30 Hydromorphone HCl (Dilaudid) 1 mg DAILY PRN IVP physical therapy 08/26/17 17:45 09/02/17 17:44 Magnesium Oxide (Mag-Ox 400mg) 400 mg THREE TIMES A DAY ORAL 08/24/17 13:00 09/23/17 12:59 08/29/17 08:30 Metoprolol Tartrate (Lopressor) 25 mg ONCE ORAL 08/29/17 10:15 08/29/17 12:00 08/29/17 10:16 Metoprolol Tartrate (Lopressor) 25 mg Q12HR ORAL 08/29/17 21:00 09/28/17 20:59 Morphine Sulfate (Morphine Sulfate) 4 mg Q4H PRN IVP Severe Pain (Pain Scale 7-10) 08/24/17 20:00 08/29/17 19:59 08/28/17 04:22 Multivitamins (Multivitamins) 1 tab DAILY ORAL 08/29/17 10:00 09/28/17 09:59 08/29/17 10:16 ROMÁN FINCH August 29, 2017 11:55
--- NOTE | 2017-08-29 13:04 | Nephrology Progress Note ---
Assessment/Plan Problem List: (1) Hypercalcemia (2) Fracture, humerus closed, shaft (3) Humerus surgical neck fracture (4) Morbid obesity with BMI of 40.0-44.9, adult (5) Anemia (6) Hypertension Assessment Hypercalcemia improved Anemia worsened UTI Fracture, humerus closed, shaft Humerus surgical neck fracture Morbid obesity with BMI of 40.0-44.9, adult Proteinuria Plan add Lopressor for BP check labs in am consider transfusion decrease IV fluid AREDIA given 60 mg 08/23 fine- Anemia yanez Keep BP in check Per ortho Subjective ROS Limited/Unobtainable: No Constitutional: Reports: malaise Objective Objective Last 24 Hour Vital Signs Date Time Temp Pulse Resp B/P (MAP) Pulse Ox O2 Delivery O2 Flow Rate FiO2 08/29/17 10:16 92 149/66 08/29/17 08:30 90 149/66 08/29/17 08:00 98.3 90 20 165/58 96 Room Air 98.3 08/29/17 04:29 98.1 86 16 110/69 95 98.1 08/29/17 00:00 98.3 106 18 141/69 96 98.3 08/28/17 20:23 99.1 91 16 150/71 95 99.1 08/28/17 16:00 98.9 88 19 135/65 96 Room Air 98.9 Intake and Output 08/28/17 08/29/17 19:00 07:00 Intake Total 910 ml Output Total 1550 ml Balance -640 ml Intake Oral 800 ml IV Total 110 ml Output Urine Total 1550 ml Stool Total 0 ml Height (Feet): 5 Height (Inches): 9.00 Weight (Pounds): 290 General Appearance: no apparent distress Objective no change WINIFRED PALACIOS August 29, 2017 13:03
[2017-08-29] MEDS ORDERED: ACETAMINOPHEN325 M1 ORAL (16:45)
[2017-08-29] MEDS ORDERED: CEFTRIAXONE1 G2 IV (16:46)
[2017-08-29] MEDS ORDERED: FAMOTIDINE20 MG ORAL (16:47)
[2017-08-29] MEDS ORDERED: DOCUSATE SODIU100 M2 ORAL (16:47)
[2017-08-29] MEDS ORDERED: NORCO 5-325 TA1 EACH ORAL (16:47)
[2017-08-29] MEDS ORDERED: HYDROMORPHO1 MG/1 M1 IVP (16:49)
[2017-08-29] MEDS ORDERED: MAGNESIUM OXID400 M1 ORAL (16:49)
[2017-08-29] MEDS ORDERED: METOPROLOL TART25 MG ORAL (16:50)
[2017-08-29] MEDS ORDERED: MORPHINE SU4 MG/1 ML IVP (16:50)
[2017-08-29] MEDS ORDERED: MULTI-VITAMIN1 EACH PO (16:56)
--- NOTE | 2017-08-29 20:01 | General Progress Note ---
Assessment/Plan Assessment/Plan (1) B/L shoulder pain (2) Left humeral neck fracture (3) Proximal right humerus fracture Patient to be continued on Dilaudid, Morphine and Dana. D/w Dr. Farfan and he concurred Subjective Date patient seen: August 29, 2017 Time patient seen: 07:00 - pm Allergies: Coded Allergies: No Known Allergies (Unverified , 08/21/17) Subjective Constitutional: Reports: no symptoms Eye: Reports: no symptoms ENT: Reports: no symptoms Respiratory: Reports: no symptoms Cardiovascular: Reports: no symptoms Gastrointestinal: Reports: no symptoms Genitourinary: Reports: no symptoms Musculoskeletal: Reports: joint pain - b/l shoulder pain Skin: Reports: no symptoms Psychiatric: Reports: no symptoms Neurological: Reports: no symptoms Endocrine: Reports: no symptoms Hematologic/Lymphatic: Reports: no symptoms Subjective She reports that the pain continues to be controlled well. [place] [facility] [place]. Objective Last 24 Hour Vital Signs Date Time Temp Pulse Resp B/P (MAP) Pulse Ox O2 Delivery O2 Flow Rate FiO2 08/29/17 16:00 99.7 80 20 149/65 98 Room Air 99.7 08/29/17 12:00 98.8 81 20 145/70 95 Room Air 98.8 08/29/17 10:16 92 149/66 08/29/17 08:30 90 149/66 08/29/17 08:00 98.3 90 20 165/58 96 Room Air 98.3 08/29/17 04:29 98.1 86 16 110/69 95 98.1 08/29/17 00:00 98.3 106 18 141/69 96 98.3 08/28/17 20:23 99.1 91 16 150/71 95 99.1 Intake and Output 08/28/17 08/29/17 19:00 07:00 Intake Total 910 ml Output Total 1550 ml Balance -640 ml Intake Oral 800 ml IV Total 110 ml Output Urine Total 1550 ml Stool Total 0 ml Height (Feet): 5 Height (Inches): 9.00 Weight (Pounds): 290 Objective General Appearance: no apparent distress, alert, overweight HEENT: PERRL, EOMI Neck: non-tender, normal alignment Respiratory/Chest: lungs clear, normal breath sounds Cardiovascular/Chest: normal rate, regular rhythm Abdomen: non tender, soft Extremities: other - b/l shoulders tenderness to palpation with reduced ROM Skin Exam: normal pigmentation, warm/dry Neurologic: alert, oriented x 3, responsive Kevin Paez August 29, 2017 20:01
[2017-08-29] MEDS: Norco 5mg/325mg tab ORAL PRN (20:21)
--- NOTE | 2017-08-29 21:17 | General Progress Note ---
Assessment/Plan Problem List: (1) Fracture, humerus closed, shaft ICD Codes: S42.309A - Unspecified fracture of shaft of humerus, unspecified arm , initial encounter for closed fracture SNOMED: 56018825, 938400699 Qualifiers: Qualified Codes: S42.321A - Displaced transverse fracture of shaft of humerus, right arm, initial encounter for closed fracture (2) Humerus surgical neck fracture ICD Codes: S42.213A - Unspecified displaced fracture of surgical neck of unspecified humerus, initial encounter for closedfracture SNOMED: 062423857, 487879584 Qualifiers: Qualified Codes: S42.222A - 2-part displaced fracture of surgical neck of left humerus, initial encounter for closed fracture (3) Morbid obesity with BMI of 40.0-44.9, adult ICD Codes: E66.01 - Morbid (severe) obesity due to excess calories; Z68.41 - Body mass index (BMI) 40.0-44.9, adult SNOMED: 549556052, 485191362 (4) Bilateral humeral fractures ICD Codes: S42.301A - Unspecified fracture of shaft of humerus, right arm, initial encounter for closed fracture; S42.302A - Unspecified fracture of shaft of humerus, left arm, initial encounter for closed fracture SNOMED: 12017709 (5) Breast cancer ICD Codes: C50.919 - Malignant neoplasm of unspecified site of unspecified female breast SNOMED: 697624414 (6) Hypercalcemia ICD Codes: E83.52 - Hypercalcemia SNOMED: 51124613 Status: progressing Assessment/Plan persistent fever abx per id afebrile today awaiting transfer to higher level for orthopedic surgery repair since fx is complicated per dr manriquez morbid obesity bilat humeral fracture Subjective ROS Limited/Unobtainable: Yes Allergies: Coded Allergies: No Known Allergies (Unverified , 08/21/17) Subjective pain ue where the fx is Objective Last 24 Hour Vital Signs Date Time Temp Pulse Resp B/P (MAP) Pulse Ox O2 Delivery O2 Flow Rate FiO2 08/29/17 20:21 99.7 08/29/17 16:00 99.7 80 20 149/65 98 Room Air 99.7 08/29/17 12:00 98.8 81 20 145/70 95 Room Air 98.8 08/29/17 10:16 92 149/66 08/29/17 08:30 90 149/66 08/29/17 08:00 98.3 90 20 165/58 96 Room Air 98.3 08/29/17 04:29 98.1 86 16 110/69 95 98.1 08/29/17 00:00 98.3 106 18 141/69 96 98.3 Intake and Output 08/28/17 08/29/17 19:00 07:00 Intake Total 910 ml Output Total 1550 ml Balance -640 ml Intake Oral 800 ml IV Total 110 ml Output Urine Total 1550 ml Stool Total 0 ml Height (Feet): 5 Height (Inches): 9.00 Weight (Pounds): 290 Respiratory/Chest: lungs clear Abdomen: soft Amparo Pa MD August 29, 2017 21:17
--- NOTE | 2017-08-30 18:45 | Discharge Summary ---
Discharge Summary Discharge Summary _ DATE OF ADMISSION: 08/21/2017 DATE OF DISCHARGE: 08/29/2017 CONSULTANTS: Dr. Dylan Farfan BRIEF HOSPITAL COURSE: Patient is a 62-year-old female, with history of high blood pressure and breast cancer status post lumpectomy and lymph node dissection presented to ED with chief complaint of fall and bilateral shoulder pain, right greater than left. She was helping a friend out in [place] when she tripped over a rug and fell onto her front and onto the right side. She was complaining mostly of right shoulder pain and unable to move it. She also had left shoulder pain which was worse with movement. There was no nausea, no vomiting, no head injury , no loss of consciousness. On evaluation at ED, x-ray of the right shoulder showed midshaft humerus fracture. Left shoulder x-ray with surgical humeral neck fracture. Blood work showed hypokalemia potassium was 3.0, calcium was elevated to 11, hemoglobin was 9. She was admitted for evaluation of bilateral humeral fracture. She underwent orthopedic evaluation, on review of images, patient has significant complicated injuries and would require higher level of care at a tertiary center. Patient has bilateral upper extremity injury requiring orthopedic traumatologist and requires multidisciplinary approach. She was given pain management. Patient had elevated calcium levels. She was given Aredia 60 mg. She had a drop in hemoglobin and required blood transfusion. Anemia workup done showed elevated ferritin. Anemia possibly due to underlying chronic disease. She also had leukopenia likely related to recent chemotherapy. She had prior diagnosis of breast cancer and status post chemotherapy in the past and had 5 years of tamoxifen and was started on letrozole which has side effect of osteopenia. Letrozole was discontinued at this time. He had an episode of fever, he was given Rocephin and vancomycin. Blood culture did not isolate any growth. Urine culture with mixed gram-positive organisms. He was eventually transferred to [facility]. FINAL DIAGNOSES: Bilateral fracture of the humerus Morbid obesity Breast cancer Hypercalcemia Acute anemia requiring blood transfusion Hypertension UTI Leukopenia DISPOSITION: Patient was transferred to [facility]. DISCHARGE MEDICATIONS: Refer to Discharge Medication List. I have been assigned to dictate discharge summary on this account, and I was not involved in the patient's management. Cari Turner NP August 30, 2017 18:45
== END 2017-08-29 20:25 | disposition short-term general hospital (02) | DRG 342 ==
LOC: EDBD 21:38 → EMR 21:55 → 3E 23:46 → EDBEDREQ 08-22 00:28
DX: S42.301A Unspecified fracture of shaft of humerus, right arm, initial encounter for closed fracture (principal); I10 Essential (primary) hypertension; Z68.41 Body mass index [BMI] 40.0-44.9, adult; S42.292A Other displaced fracture of upper end of left humerus, initial encounter for closed fracture; D63.8 Anemia in other chronic diseases classified elsewhere; N39.0 Urinary tract infection, site not specified; E83.52 Hypercalcemia; M85.80 Other specified disorders of bone density and structure, unspecified site; T45.1X5A Adverse effect of antineoplastic and immunosuppressive drugs, initial encounter; Z85.3 Personal history of malignant neoplasm of breast; W01.0XXA Fall on same level from slipping, tripping and stumbling without subsequent striking against object, initial encounter; Y92.009 Unspecified place in unspecified non-institutional (private) residence as the place of occurrence of the external cause; E66.01 Morbid (severe) obesity due to excess calories; D72.819 Decreased white blood cell count, unspecified
CPT/HCPCS: 36415; 71045; 80048; 80053; 80061; 80202; 81001; 82550; 82607; 82728; 82746; 82977; 83036; 83540; 83550; 83735; 83880; 84100; 84443; 84550; 85007; 85025; 85610; 85730; 86140; 86300; 86304; 86850; 86900; 86901; 86920; 87040; 87086; 93970; 96374; 99284; 99285; J2405; J2430; J8499

== ENCOUNTER 2017-11-11 21:50 | Inpatient (IN) | payer MEDICAID ==
[~2017-11-11] VITALS: Ht 172.7 cm; Wt 127.5 kg
[~2017-11-11 21:50] MED LIST changes: +ACETAMINOPHEN325 M1 ORAL; +CEFTRIAXONE1 G2 IV; +DOCUSATE SODIU100 M2 ORAL; +FAMOTIDINE20 MG ORAL; +HYDROMORPHO1 MG/1 M1 IVP; +MAGNESIUM OXID400 M1 ORAL; +METOPROLOL TART25 MG ORAL; +MORPHINE SU4 MG/1 ML IVP; +MULTI-VITAMIN1 EACH PO; +MULTIVITAMINS1 EAC2 ORAL; +NORCO 5-325 TA1 EACH ORAL
--- NOTE | 2017-11-11 22:07 | Emergency Room Report ---
History of Present Illness General Chief Complaint: Pain Source: Patient Present Illness HPI Patient presents with some dizziness and general weakness Patient has extensive medical history including multiple myeloma Breast cancer with lymph node dissection Patient had recent bilateral humerus fractures Patient being followed closely at [facility] Reports that her heme oncologist recently told her that she had '3 spots'on her right back area Currently denies any chest pain or shortness of breath Denies any vomiting or diarrhea Patient reports that she was on medications including oxycodone, morphine and Dilaudid However recently she was able to control her discomfort with Tylenol with codeine Allergies: Coded Allergies: No Known Allergies (Unverified , 08/21/17) Patient History Past Medical History: see triage record Pertinent Family History: none Reviewed Nursing Documentation: PMH: Agreed; PSxH: Agreed Nursing Documentation-PMH Hx Hypertension: Yes Hx Cancer: Yes - MULTIPLE MYELOMA Review of Systems All Other Systems: negative except mentioned in HPI Physical Exam Vital Signs Date Time Temp Pulse Resp B/P (MAP) Pulse Ox O2 Delivery O2 Flow Rate FiO2 11/11/17 21:36 98.0 86 18 157/88 99 Room Air 98.1 Sp02 EP Interpretation: reviewed, normal General Appearance: no apparent distress Head: normocephalic, atraumatic Eyes: bilateral eye PERRL, bilateral eye EOMI ENT: normal pharynx Neck: full range of motion, supple Respiratory: lungs clear Cardiovascular #1: regular rate, rhythm Gastrointestinal: non tender, soft Musculoskeletal: other - Patient has recent surgery in the right humerus, fracture in the left humerus, edema bilaterally in lower extremity Neurologic: alert, oriented x3, responsive Skin: pallor - With edema bilaterally Lymphatic: no adenopathy Medical Decision Making Diagnostic Impression: Primary Impression: Symptomatic anemia Additional Impression: Bilateral Humerus Fracture ER Course Patient is a fairly complex patient with multiple differential to consideration including but not limited to cardiac cardiopulmonary and vascular emergencies Patient's hemoglobin count is lower than previous Patient reports that she was transferred [facility] previously At this time patient has poor IV access picc has been ordered for the morning Patient remaining hemodynamically stable And admitted for further care Labs Test 11/11/17 22:40 White Blood Count 6.7 K/UL (4.8-10.8) Red Blood Count 2.20 M/UL (4.20-5.40) Hemoglobin 6.5 G/DL (12.0-16.0) Hematocrit 20.6 % (37.0-47.0) Mean Corpuscular Volume 94 FL (80-99) Mean Corpuscular Hemoglobin 29.7 PG (27.0-31.0) Mean Corpuscular Hemoglobin Concent 31.8 G/DL (32.0-36.0) Red Cell Distribution Width 16.1 % (11.6-14.8) Platelet Count 297 K/UL (150-450) Mean Platelet Volume 5.0 FL (6.5-10.1) Neutrophils (%) (Auto) % (45.0-75.0) Lymphocytes (%) (Auto) % (20.0-45.0) Monocytes (%) (Auto) % (1.0-10.0) Eosinophils (%) (Auto) % (0.0-3.0) Basophils (%) (Auto) % (0.0-2.0) Neutrophils % (Manual) 67 % (45-75) Lymphocytes % (Manual) 20 % (20-45) Monocytes % (Manual) 10 % (1-10) Eosinophils % (Manual) 3 % (0-3) Basophils % (Manual) 0 % (0-2) Band Neutrophils 0 % (0-8) Platelet Estimate Adequate Platelet Morphology Normal Sodium Level 145 MMOL/L (136-145) Potassium Level 3.5 MMOL/L (3.5-5.1) Chloride Level 107 MMOL/L (98-107) Carbon Dioxide Level 29 MMOL/L (21-32) Anion Gap 9 mmol/L (5-15) Blood Urea Nitrogen 24 mg/dL (7-18) Creatinine 2.1 MG/DL (0.55-1.30) Estimat Glomerular Filtration Rate 29.1 mL/min (>60) Glucose Level 91 MG/DL (74-106) Calcium Level 10.5 MG/DL (8.5-10.1) Total Bilirubin 0.5 MG/DL (0.2-1.0) Aspartate Amino Transf (AST/SGOT) 15 U/L (15-37) Alanine Aminotransferase (ALT/SGPT) 12 U/L (12-78) Alkaline Phosphatase 133 U/L (46-116) Total Protein 6.8 G/DL (6.4-8.2) Albumin 2.9 G/DL (3.4-5.0) Globulin 3.9 g/dL Albumin/Globulin Ratio 0.7 (1.0-2.7) Last Vital Signs Date Time Temp Pulse Resp B/P (MAP) Pulse Ox O2 Delivery O2 Flow Rate FiO2 11/11/17 21:36 98.0 86 18 157/88 99 Room Air 98.1 Status: improved Disposition: ADMITTED INPATIENT Condition: Serious Amparo Burns DO Nov 11, 2017 22:07
[2017-11-11 23:05] LABS: HEMATOCRIT 20.6 % (37.0-47.0); MEAN CORPUSCULAR VOLUME 94 FL (80-99); PLATELET COUNT 297 K/UL (150-450); RED CELL DISTRIBUTION WIDTH 16.1 % (11.6-14.8); WHITE BLOOD COUNT 6.7 K/UL (4.8-10.8)
[2017-11-11 23:08] LABS: HEMOGLOBIN 6.5 G/DL (12.0-16.0)
[2017-11-11 23:12] LABS: ANION GAP 9 mmol/L (5-15); BLOOD UREA NITROGEN 24 mg/dL (7-18); CALCIUM 10.5 MG/DL (8.5-10.1); CARBON DIOXIDE 29 MMOL/L (21-32); CHLORIDE 107 MMOL/L (98-107); CREATININE 2.1 MG/DL (0.55-1.30); POTASSIUM 3.5 MMOL/L (3.5-5.1); SODIUM 145 MMOL/L (136-145)
[2017-11-11 23:17] LABS: ALANINE AMINOTRANSFERASE 12 U/L (12-78); ALBUMIN 2.9 G/DL (3.4-5.0); ALBUMIN/GLOBULIN RATIO 0.7 (1.0-2.7); ALKALINE PHOSPHATASE 133 U/L (46-116); ASPARTATE AMINO TRANSFERASE 15 U/L (15-37); BILIRUBIN,TOTAL 0.5 MG/DL (0.2-1.0)
[2017-11-11 23:43] VITALS: BP 138/57
[2017-11-11] MEDS ORDERED: ACETAMINOPHEN-1 EAC1 ORAL (23:44)
[2017-11-11] MEDS ORDERED: METOPROLOL TART50 MG ORAL (23:44)
[2017-11-12] MEDS ORDERED: Heparin 2000 units/Ns 1000ml INJ ONE
[2017-11-12] MEDS ORDERED: Lidocaine 1% Plain 30 ml INJ ONE
[2017-11-12 04:00] VITALS: BP 131/58
[2017-11-12] MEDS ORDERED: Acetaminophen 500mg (ES) tab ORAL PRN (04:30)
[2017-11-12 05:52] LABS: HEMATOCRIT 17.9 % (37.0-47.0); MEAN CORPUSCULAR VOLUME 91 FL (80-99); PLATELET COUNT 259 K/UL (150-450); RED BLOOD COUNT 1.97 M/UL (4.20-5.40); RED CELL DISTRIBUTION WIDTH 15.8 % (11.6-14.8); WHITE BLOOD COUNT 5.6 K/UL (4.8-10.8)
[2017-11-12 06:00] LABS: HEMOGLOBIN 5.8 G/DL (12.0-16.0)
[2017-11-12 06:01] LABS: ANION GAP 6 mmol/L (5-15); BLOOD UREA NITROGEN 24 mg/dL (7-18); CALCIUM 10.1 MG/DL (8.5-10.1); CARBON DIOXIDE 31 MMOL/L (21-32); CHLORIDE 108 MMOL/L (98-107); CREATININE 2.1 MG/DL (0.55-1.30); POTASSIUM 3.3 MMOL/L (3.5-5.1); SODIUM 145 MMOL/L (136-145)
--- NOTE | 2017-11-12 07:35 | General Progress Note ---
Assessment/Plan Assessment/Plan (1) B/L shoulder pain (2) Left humeral neck fracture (3) Proximal right humerus fracture s/p ORIF (4) Multiple myeloma Patient to be continued on Cowgill 5/325mg PO 1 tab Q4H PRN severe pain. D/w Dr. Farfan and he concurred. Subjective Date patient seen: Nov 12, 2017 Time patient seen: 07:30 - am Allergies: Coded Allergies: No Known Allergies (Unverified , 08/21/17) Subjective Constitutional: Reports: no symptoms Eye: Reports: no symptoms ENT: Reports: no symptoms Respiratory: Reports: no symptoms Cardiovascular: Reports: no symptoms Gastrointestinal: Reports: no symptoms Genitourinary: Reports: no symptoms Musculoskeletal: Reports: joint pain - b/l shoulder pain Skin: Reports: no symptoms Psychiatric: Reports: no symptoms Neurological: Reports: no symptoms Endocrine: Reports: no symptoms Hematologic/Lymphatic: Reports: no symptoms Subjective Patient is a known from prior admission. Has been admitted under the care of Dr. Pa due to anemia. She had b/l shoulder fx and had ORIF of the right fx at [facility] [place] and left has been healing with no surgery as per surgeon. At this time is on Cowgill 5/325mg PO 1 tab Q4h PRN with pain reduction she has been recently diagnosed with Multiple myeloma as per pt. Objective Last 24 Hour Vital Signs Date Time Temp Pulse Resp B/P (MAP) Pulse Ox O2 Delivery O2 Flow Rate FiO2 11/12/17 04:00 97.7 86 20 131/58 (82) 99 97.7 11/12/17 02:42 Room Air 11/12/17 00:35 98.0 82 18 138/57 99 Room Air 98.0 11/11/17 23:43 98.0 82 18 138/57 99 Room Air 98.0 11/11/17 23:35 98.0 11/11/17 22:34 98.0 11/11/17 21:36 98.0 86 18 157/88 99 Room Air 98.1 Intake and Output 11/11/17 11/12/17 19:00 07:00 Output Total 0 ml Balance 0 ml Output Urine Total 0 ml # Voids 1 # Bowel Movements 1 Laboratory Tests 11/11/17 22:40: White Blood Count 6.7, Red Blood Count 2.20L, Hemoglobin 6.5*L, Hematocrit 20.6L , Mean Corpuscular Volume 94, Mean Corpuscular Hemoglobin 29.7, Mean Corpuscular Hemoglobin Concent 31.8L, Red Cell Distribution Width 16.1H, Platelet Count 297, Mean Platelet Volume 5.0L, Neutrophils (%) (Auto) , Lymphocytes (%) (Auto) , Monocytes (%) (Auto) , Eosinophils (%) (Auto) , Basophils (%) (Auto) , Neutrophils % (Manual) 67, Lymphocytes % (Manual) 20, Monocytes % (Manual) 10, Eosinophils % (Manual) 3, Basophils % (Manual) 0, Band Neutrophils 0, Platelet Estimate Adequate, Platelet Morphology Normal, Sodium Level 145, Potassium Level 3.5, Chloride Level 107, Carbon Dioxide Level 29, Anion Gap 9, Blood Urea Nitrogen 24H, Creatinine 2.1H, Estimat Glomerular Filtration Rate 29.1, Glucose Level 91, Calcium Level 10.5H, Total Bilirubin 0.5 , Aspartate Amino Transf (AST/SGOT) 15, Alanine Aminotransferase (ALT/SGPT) 12, Alkaline Phosphatase 133H, Total Protein 6.8, Albumin 2.9L, Globulin 3.9, Albumin/Globulin Ratio 0.7L 11/12/17 05:05: White Blood Count 5.6, Red Blood Count 1.97L, Hemoglobin 5.8*L, Hematocrit 17.9L , Mean Corpuscular Volume 91, Mean Corpuscular Hemoglobin 29.4, Mean Corpuscular Hemoglobin Concent 32.4, Red Cell Distribution Width 15.8H, Platelet Count 259, Mean Platelet Volume 5.1L, Neutrophils (%) (Auto) , Lymphocytes (%) (Auto) , Monocytes (%) (Auto) , Eosinophils (%) (Auto) , Basophils (%) (Auto) , Neutrophils % (Manual) [Pending], Lymphocytes % (Manual) [Pending], Platelet Estimate [Pending], Platelet Morphology [Pending], Sodium Level 145, Potassium Level 3.3L, Chloride Level 108H, Carbon Dioxide Level 31, Anion Gap 6, Blood Urea Nitrogen 24H, Creatinine 2.1H, Estimat Glomerular Filtration Rate 29.1, Glucose Level 89, Calcium Level 10.1 Height (Feet): 5 Height (Inches): 8.00 Weight (Pounds): 116 Objective General Appearance: no apparent distress, alert, overweight HEENT: PERRL, EOMI Neck: non-tender, normal alignment Respiratory/Chest: lungs clear, normal breath sounds Cardiovascular/Chest: normal rate, regular rhythm Abdomen: non tender, soft Extremities: other - b/l shoulders tenderness to palpation with reduced ROM Skin Exam: normal pigmentation, warm/dry Neurologic: alert, oriented x 3, responsive Kevin Paez Nov 12, 2017 07:35
[2017-11-12 08:00] VITALS: BP 141/74
[2017-11-12] MEDS: Norco 5mg/325mg tab ORAL PRN ×2 (09:40→16:25)
[2017-11-12 10:18] LABS: FERRITIN 1857 NG/ML (8-388)
[2017-11-12 11:02] LABS: % IRON SATURATION 44 % (15-50); IRON 82 ug/dL (50-175); TOTAL IRON BINDING CAPACITY 186 ug/dL (250-450)
[2017-11-12] MEDS ORDERED: Lidocaine 1% Plain 30 ml INJ PRN (11:45)
[2017-11-12] MEDS ORDERED: Heparin 2000 units/Ns 1000ml IV PRN (11:45)
[2017-11-12 12:00] VITALS: BP 128/57
--- NOTE | 2017-11-12 14:49 | Diagnostic Imaging Report ---
Indications: Needs long-term IV access Technique: Ultrasound confirms patent compressible right basilic vein. Total sterile technique, including sterile probe cover and sterile gel, hat, mask, sterile gown, large sterile drape, and preparation with 2% chlorhexidine utilized. Local anesthesia with 1% lidocaine. Under real-time ultrasound guidance, puncture basilic vein using 21-gauge needle, documented and archived, passage 0.018 guidewire under direct fluoroscopy, which was used to determine appropriate catheter length, exchange for 5 Kinyarwanda peel-away sheath. 5 Kinyarwanda Bard dual-lumen power PICC cut to 41 cm. It was inserted through the peel-away sheath. Peel-away sheath and guidewire removed. Catheter fixed to the skin. Both catheter ports aspirated and flushed. Patient tolerated procedure well, without immediate complication. Digital radiograph documents satisfactory catheter tip position, at the cavoatrial junction. Total fluoroscopy time 0.4 minutes. Total dose area product 18 dGycm2 Total number of images: 1 Impression: Successful placement of right arm PICC under sonographic and fluoroscopic guidance, as described above.
--- NOTE | 2017-11-12 15:34 | Consultation ---
Consult Note Consult Note asked to eval for renal failure Patient presents with some dizziness and general weakness Patient has extensive medical history including multiple myeloma Breast cancer with lymph node dissection Patient had recent bilateral humerus fractures Patient being followed closely at [facility] and [facility] Reports that her [facility] oncologist recently told her that she had '3 spots'on her right back area Currently denies any chest pain or shortness of breath Denies any vomiting or diarrhea Patient reports that she was on medications including oxycodone, morphine and Dilaudid However recently she was able to control her discomfort with Tylenol with codeine Allergies: No Known Allergies (Unverified , 08/21/17) Hx Hypertension: Yes Hx Cancer: Yes - MULTIPLE MYELOMA interviewed- examined data reviewed Assessment/Plan Renal failure ? Acutre on ? Chronic Newly diagnosed MM Sever Anemia HyperCalcemia ( Corrected for low Albumin) Humerous fx Obesity Hydrate- fine- urine studies Anemia yanez Aredia if Ca remains high Keep BP in check folic acid per hematology advise Steffen Morgan MD Nov 12, 2017 15:34
[2017-11-12 16:00] VITALS: BP 123/58
[2017-11-12] MEDS: D5 1/2NS 1,000 ML IV SCH (16:26)
--- NOTE | 2017-11-12 17:38 | Consultation ---
Consult Note Assessment/Plan DATE OF CONSULTATION: 11/12/2017 HEMATOLOGY/ONCOLOGY CONSULTATION CONSULTING PHYSICIAN: Joselito Steele M.D. REQUESTING PHYSICIAN: Amparo Pa M.D. REASON FOR CONSULTATION: Evaluation of breast cancer. Multiple myeloma newly diagnosed IDENTIFICATION DATA: Dear Dr. Pa, The patient is a pleasant 62-year-old female with past medical history significant for breast cancer, had a lumpectomy and lymph node dissection. This was approximately 17 years ago. She presents with a fall with bilateral shoulder pain, right worse than the left. The patient now has bilateral femur fracture, on the right side has been repaired but not left side, noted to have hypercalcemia, elev to 10.2, has been seen by renal, potentially considering aredia if high CA persists, also noted to have multiple myeloma newlly diagnosed , some back lesions and IgG/IgA/IgM has been ordered as well as spep PAST MEDICAL HISTORY: breast ca PAST SURGICAL HISTORY: None noted. ALLERGIES: No known drug allergies. FAMILY HISTORY: Noncontributory. SOCIAL HISTORY: No alcohol, tobacco, or illicit drug use. REVIEW OF SYSTEMS: CONSTITUTIONAL: No fevers, chills, or night sweats. SKIN: No rash, bumps, or itching. HEENT: No headache, hearing or vision changes. BREASTS: No lumps, pain, or discharge. PULMONARY: No cough, sputum, or shortness of breath. GASTROINTESTINAL: No nausea, vomiting, or diarrhea. GENITOURINARY: No dysuria, frequency, or urgency. MUSCULOSKELETAL: No joint swelling, muscle pain, or trauma. PHYSICAL EXAMINATION: VITAL SIGNS: Reviewed. GENERAL: No distress. LUNGS: Decreased breath sounds. CARDIOVASCULAR: Regular rate. No S3 or S4. ABDOMEN: Soft, nontender, and nondistended. EXTREMITIES: No cyanosis, swelling, or edema. Laboratory Tests Test 11/11/17 22:40 11/12/17 05:05 White Blood Count 6.7 K/UL (4.8-10.8) 5.6 K/UL (4.8-10.8) Red Blood Count 2.20 M/UL (4.20-5.40) L 1.97 M/UL (4.20-5.40) L Hemoglobin 6.5 G/DL (12.0-16.0) *L 5.8 G/DL (12.0-16.0) *L Hematocrit 20.6 % (37.0-47.0) L 17.9 % (37.0-47.0) L Mean Corpuscular Volume 94 FL (80-99) 91 FL (80-99) Mean Corpuscular Hemoglobin 29.7 PG (27.0-31.0) 29.4 PG (27.0-31.0) Mean Corpuscular Hemoglobin Concent 31.8 G/DL (32.0-36.0) L 32.4 G/DL (32.0-36.0) Red Cell Distribution Width 16.1 % (11.6-14.8) H 15.8 % (11.6-14.8) H Platelet Count 297 K/UL (150-450) 259 K/UL (150-450) Mean Platelet Volume 5.0 FL (6.5-10.1) L 5.1 FL (6.5-10.1) L Neutrophils (%) (Auto) % (45.0-75.0) % (45.0-75.0) Lymphocytes (%) (Auto) % (20.0-45.0) % (20.0-45.0) Monocytes (%) (Auto) % (1.0-10.0) % (1.0-10.0) Eosinophils (%) (Auto) % (0.0-3.0) % (0.0-3.0) Basophils (%) (Auto) % (0.0-2.0) % (0.0-2.0) Neutrophils % (Manual) 67 % (45-75) 70 % (45-75) Lymphocytes % (Manual) 20 % (20-45) 21 % (20-45) Monocytes % (Manual) 10 % (1-10) 6 % (1-10) Eosinophils % (Manual) 3 % (0-3) 2 % (0-3) Basophils % (Manual) 0 % (0-2) 0 % (0-2) Band Neutrophils 0 % (0-8) 1 % (0-8) Platelet Estimate Adequate Adequate Platelet Morphology Normal Normal Sodium Level 145 MMOL/L (136-145) 145 MMOL/L (136-145) Potassium Level 3.5 MMOL/L (3.5-5.1) 3.3 MMOL/L (3.5-5.1) L Chloride Level 107 MMOL/L (98-107) 108 MMOL/L (98-107) H Carbon Dioxide Level 29 MMOL/L (21-32) 31 MMOL/L (21-32) Anion Gap 9 mmol/L (5-15) 6 mmol/L (5-15) Blood Urea Nitrogen 24 mg/dL (7-18) H 24 mg/dL (7-18) H Creatinine 2.1 MG/DL (0.55-1.30) H 2.1 MG/DL (0.55-1.30) H Estimat Glomerular Filtration Rate 29.1 mL/min (>60) 29.1 mL/min (>60) Glucose Level 91 MG/DL (74-106) 89 MG/DL (74-106) Calcium Level 10.5 MG/DL (8.5-10.1) H 10.1 MG/DL (8.5-10.1) Total Bilirubin 0.5 MG/DL (0.2-1.0) Aspartate Amino Transf (AST/SGOT) 15 U/L (15-37) Alanine Aminotransferase (ALT/SGPT) 12 U/L (12-78) Alkaline Phosphatase 133 U/L (46-116) H Total Protein 6.8 G/DL (6.4-8.2) Albumin 2.9 G/DL (3.4-5.0) L Globulin 3.9 g/dL Albumin/Globulin Ratio 0.7 (1.0-2.7) L Differential Total Cells Counted 100 Hypochromasia 4+ Anisocytosis 1+ Spherocytes 2+ Iron Level 82 ug/dL (50-175) Total Iron Binding Capacity 186 ug/dL (250-450) L Percent Iron Saturation 44 % (15-50) Unsaturated Iron Binding 104 ug/dL (112-346) L Ferritin 1857 NG/ML (8-388) H C-Reactive Protein, Quantitative 1.2 mg/dL (0.00-0.90) H Vitamin B12 Level 1044 PG/ML (193-986) H Folate 4.4 NG/ML (8.6-58.9) L Assessment/Plan #. Breast cancer. Diagnosed and treated in 2000, at [facility], s/p chemo in the past , had 5 years of tamoxifen, then chemo-pause and then started on letrozole which has a side effect of osteopenia, has been on it for >7y. At this time, sees oncologist for f/u --> obtain CA125 which was slightly elevated at 7.2 --> skeletal survey 10v is pending eval for mets if patient able to tolerate --> d/c letrozole at this time #. Multiple myeloma - newly diagnosed --> obtain outside records --> send off for spep, upep, igg, iga, igm --> review bone marrow biopsy report from [facility] --> consider aredia for high Ca++ #. Anemia due to underlying chronic disease. Anemia workup at this time has been reviewed. --> ferritin is elevated, therefore related to chronic disease --> transfuse if hgb <7, standing order #. Leukopenia likely related to recent treatment, chemo, now better --> administer neupogen if ANC<1000 #. Humeral b/l pathological fracture. Again to be seen by Orthopedic Surgery. --> ortho consult pending, potential transfer to higher level of care #. Osteopenia potentially secondary to letrozole #. Arm pain. from fracture, seen by pain management #. JAX - nephro evaluating, also in setting of newly diagnosed MM Joselito Steele MD Nov 12, 2017 17:38
[2017-11-12] MEDS: Docusate 100mg cap ORAL SCH (18:04)
[2017-11-12 20:00] VITALS: BP 113/64
[2017-11-12] MEDS: Dyna-Hex 2% Top Sol 2oz TOPIC SCH (20:49)
[2017-11-12] MEDS: Metoprolol 25mg tab ORAL SCH (20:50)
[2017-11-13] VITALS: BP 125/62
[2017-11-13 04:00] VITALS: BP 130/58
[2017-11-13] MEDS: Norco 5mg/325mg tab ORAL PRN ×2 (05:07→14:21)
[2017-11-13] MEDS: D5 1/2NS 1,000 ML IV SCH ×2 (05:12→16:58)
[2017-11-13 07:35] LABS: HEMATOCRIT 22.4 % (37.0-47.0); HEMOGLOBIN 7.4 G/DL (12.0-16.0); MEAN CORPUSCULAR VOLUME 90 FL (80-99); PLATELET COUNT 225 K/UL (150-450); RED BLOOD COUNT 2.49 M/UL (4.20-5.40); RED CELL DISTRIBUTION WIDTH 15.3 % (11.6-14.8); WHITE BLOOD COUNT 5.5 K/UL (4.8-10.8)
--- NOTE | 2017-11-13 07:58 | General Progress Note ---
Assessment/Plan Assessment/Plan (1) B/L shoulder pain (2) Left humeral neck fracture (3) Proximal right humerus fracture s/p ORIF (4) Multiple myeloma Patient to be continued on Lopez. D/w Dr. Farfan and he concurred. Subjective Date patient seen: Nov 13, 2017 Time patient seen: 07:15 - am Allergies: Coded Allergies: No Known Allergies (Unverified , 08/21/17) Subjective Constitutional: Reports: no symptoms Eye: Reports: no symptoms ENT: Reports: no symptoms Respiratory: Reports: no symptoms Cardiovascular: Reports: no symptoms Gastrointestinal: Reports: no symptoms Genitourinary: Reports: no symptoms Musculoskeletal: Reports: joint pain - b/l shoulder pain Skin: Reports: no symptoms Psychiatric: Reports: no symptoms Neurological: Reports: no symptoms Endocrine: Reports: no symptoms Hematologic/Lymphatic: Reports: no symptoms Subjective Patient reports that her pain has been stable and tolerated on the Lopez and is feeling better. Objective Last 24 Hour Vital Signs Date Time Temp Pulse Resp B/P (MAP) Pulse Ox O2 Delivery O2 Flow Rate FiO2 11/13/17 04:00 97.6 81 20 130/58 (82) 97.6 11/13/17 00:00 97.6 85 20 125/62 (83) 97 97.6 11/12/17 21:00 Room Air 11/12/17 20:50 86 113/64 11/12/17 20:00 98.8 86 20 113/64 (80) 95 98.8 11/12/17 17:24 97.9 11/12/17 16:25 97.9 11/12/17 16:00 98.2 86 20 123/58 (79) 98 98.2 11/12/17 12:00 97.9 88 20 128/57 (80) 99 97.9 11/12/17 09:40 97.7 11/12/17 09:00 Room Air 11/12/17 08:00 97.7 88 20 141/74 (96) 99 97.7 Intake and Output 11/12/17 11/13/17 19:00 07:00 Intake Total 600 ml 75 ml Output Total 800 ml Balance 600 ml -725 ml Intake Oral 600 ml IV Total 75 ml Output Urine Total 800 ml # Voids 1 Laboratory Tests 11/12/17 19:27: Total Protein (PEP) [Pending], Albumin (PEP) [Pending], Globulin (PEP) [Pending] , Albumin/Globulin Ratio [Pending], Bgoxd-0-Gaqvnebyx [Pending], Alpha-2- Globulins [Pending], Beta Globulins [Pending], Beta Gamma Globulin [Pending], PEP Abnormal Protein Bands [Pending], Protein Electrophoresis Interpret [Pending ], Immunoglobulin G [Pending], Immunoglobulin A [Pending], Immunoglobulin M [ Pending] 11/13/17 06:30: Urine Random Sodium 63 11/13/17 06:45: White Blood Count 5.5, Red Blood Count 2.49L, Hemoglobin 7.4L, Hematocrit 22.4L , Mean Corpuscular Volume 90, Mean Corpuscular Hemoglobin 29.9, Mean Corpuscular Hemoglobin Concent 33.2, Red Cell Distribution Width 15.3H, Platelet Count 225, Mean Platelet Volume 5.1L, Neutrophils (%) (Auto) , Lymphocytes (%) (Auto) , Monocytes (%) (Auto) , Eosinophils (%) (Auto) , Basophils (%) (Auto) , Neutrophils % (Manual) [Pending], Lymphocytes % (Manual) [Pending], Platelet Estimate [Pending], Platelet Morphology [Pending] Height (Feet): 5 Height (Inches): 8.00 Weight (Pounds): 116 Objective General Appearance: no apparent distress, alert, overweight HEENT: PERRL, EOMI Neck: non-tender, normal alignment Respiratory/Chest: lungs clear, normal breath sounds Cardiovascular/Chest: normal rate, regular rhythm Abdomen: non tender, soft Extremities: other - b/l shoulders tenderness to palpation with reduced ROM Skin Exam: normal pigmentation, warm/dry Neurologic: alert, oriented x 3, responsive Kevin Paez Nov 13, 2017 07:58
[2017-11-13 08:06] LABS: ALANINE AMINOTRANSFERASE 11 U/L (12-78); ALBUMIN 2.4 G/DL (3.4-5.0); ALBUMIN/GLOBULIN RATIO 0.8 (1.0-2.7); ALKALINE PHOSPHATASE 117 U/L (46-116); ANION GAP 7 mmol/L (5-15); ASPARTATE AMINO TRANSFERASE 16 U/L (15-37); BILIRUBIN,TOTAL 0.4 MG/DL (0.2-1.0); BLOOD UREA NITROGEN 21 mg/dL (7-18); CALCIUM 9.7 MG/DL (8.5-10.1); CARBON DIOXIDE 28 MMOL/L (21-32); CHLORIDE 109 MMOL/L (98-107); CHOLESTEROL 160 MG/DL (< 200); CREATININE 1.9 MG/DL (0.55-1.30); HDL CHOLESTEROL 46 MG/DL (40-60); PHOSPHORUS 4.9 MG/DL (2.5-4.9); POTASSIUM 3.1 MMOL/L (3.5-5.1); SODIUM 144 MMOL/L (136-145); TRIGLYCERIDES 70 MG/DL (30-150)
[2017-11-13 08:12] LABS: CREATINE KINASE 12 U/L (26-308); GAMMA GLUTAMYL TRANSPEPTIDASE 31 U/L (5-85)
[2017-11-13] MEDS: Metoprolol 25mg tab ORAL SCH ×2 (08:57→20:17)
[2017-11-13] MEDS: Docusate 100mg cap ORAL SCH ×3 (08:58→17:00)
[2017-11-13 09:00] VITALS: BP 146/67
--- NOTE | 2017-11-13 10:57 | History and Physical Report ---
DATE OF ADMISSION: 11/11/2017 REASON FOR ADMISSION: The patient admitted for severe anemia. HISTORY OF PRESENT ILLNESS: The patient has recent diagnosis of multiple myeloma. The patient is complaining of symptomatic anemia mainly dizziness, lightheadedness, and also has back pain most likely due to multiple myeloma. The patient has multiple and has history of breast cancer as well. Denies nausea, vomiting, diarrhea. Denies diplopia. Denies syncope. Denies fever or chills. PAST MEDICAL HISTORY: Recently diagnosed of multiple myeloma, hypertension, anemia, breast cancer. PAST SURGICAL HISTORY: Lumpectomy with left axillary lymph node dissection, right arm surgery for fracture. ALLERGIES: No known allergies. MEDICATIONS: She takes hydrochlorothiazide, magnesium, metoprolol, multivitamin, morphine, Pepcid, and Colace. FAMILY HISTORY: Noncontributory. SOCIAL HISTORY: Denies history of smoking, alcohol, or illicit drugs. REVIEW OF SYSTEMS: HEENT: Denies headaches. RESPIRATORY: Denies shortness of breath. Denies cough. CARDIOVASCULAR: Denies chest pain. No orthopnea. GASTROINTESTINAL: Denies nausea, vomiting, diarrhea. EXTREMITIES: Reports back pain. CENTRAL NERVOUS SYSTEM: Denies change in speech pattern. Feels dizzy and lightheaded. Presyncopal symptoms. No headache otherwise. PHYSICAL EXAMINATION: VITAL SIGNS: Temperature 97.9, pulse is 88, blood pressure 122/67. HEENT: PERRLA. NECK: Supple. No lymphadenopathy. CHEST: Clear to auscultation. GASTROINTESTINAL: Soft, nondistended. Positive bowel sounds. No organomegaly. EXTREMITIES: A 1+ edema. Reflexes on both sides. NEUROLOGIC: Generalized weakness. Reflexes on both sides. LABORATORY AND DIAGNOSTIC DATA: WBC of 6.7, hemoglobin 6.5, platelets 297,000. Sodium 145, potassium 3.5, chloride 107, BUN of 24, creatinine 2.2, calcium 10.5. ASSESSMENT AND PLAN: Acute renal failure, hypercalcemia, severe anemia, most likely elevated due to multiple myeloma. transfusions. I have asked Dr. Joselito Steele and Dr. Morgan to see the patient for the above-mentioned diagnoses and treatment as well as Dr. Farfan for the pain control. Ali Liborio Pa DR: Jareth JOB#: [id number] CC:
[2017-11-13 12:00] VITALS: BP 131/69
--- NOTE | 2017-11-13 12:20 | General Progress Note ---
Assessment/Plan Status: stable Assessment/Plan #. Multiple myeloma - newly diagnosed --> obtain outside records --> send off for spep, upep, igg, iga, igm --> review bone marrow biopsy report from [facility] --> consider aredia for high Ca++ #. Anemia due to underlying chronic disease. Anemia workup at this time has been reviewed. CURRENTLY at 7.4, CLOSELY MONITOR --> ferritin is elevated, therefore related to chronic disease --> transfuse if hgb <7, standing order --> Tx history: 11/13 - 2 units PRBC #. Breast cancer. Diagnosed and treated in 2000, at [facility], s/p chemo in the past , had 5 years of tamoxifen, then chemo-pause and then started on letrozole which has a side effect of osteopenia, has been on it for >7y. At this time, sees oncologist for f/u --> obtained CA125 which was slightly elevated at 7.2 --> skeletal survey 10v is pending eval for mets if patient able to tolerate --> d/c letrozole at this time #. Leukopenia likely related to recent treatment, chemo, now better --> administer neupogen if ANC<1000 #. Humeral b/l pathological fracture. Again to be seen by Orthopedic Surgery. --> ortho consult pending, potential transfer to higher level of care #. Osteopenia potentially secondary to letrozole #. Arm pain. from fracture, seen by pain management #. JAX - nephro evaluating, also in setting of newly diagnosed MM The time the note was entered does not necessarily correspond to the time the patient was seen. Subjective Date patient seen: Nov 13, 2017 ROS Limited/Unobtainable: Yes Hematologic/Lymphatic: Reports: anemia Allergies: Coded Allergies: No Known Allergies (Unverified , 08/21/17) All Systems: reviewed and negative except above Subjective S/P 2 units PRBC, tolerated well. Hgb improved from 5.8 to 7.4 Objective Last 24 Hour Vital Signs Date Time Temp Pulse Resp B/P (MAP) Pulse Ox O2 Delivery O2 Flow Rate FiO2 11/13/17 09:00 Room Air 11/13/17 09:00 99.0 97 20 146/67 (93) 95 99.0 11/13/17 08:57 97 146/67 11/13/17 04:00 97.6 81 20 130/58 (82) 97.6 11/13/17 00:00 97.6 85 20 125/62 (83) 97 97.6 11/12/17 21:00 Room Air 11/12/17 20:50 86 113/64 11/12/17 20:00 98.8 86 20 113/64 (80) 95 98.8 11/12/17 17:24 97.9 11/12/17 16:25 97.9 11/12/17 16:00 98.2 86 20 123/58 (79) 98 98.2 Intake and Output 11/12/17 11/13/17 19:00 07:00 Intake Total 600 ml 75 ml Output Total 800 ml Balance 600 ml -725 ml Intake Oral 600 ml IV Total 75 ml Output Urine Total 800 ml # Voids 1 Laboratory Tests 11/12/17 19:27: Total Protein (PEP) 4.9L, Albumin (PEP) 2.5L, Globulin (PEP) 2.4, Albumin/ Globulin Ratio 1.0, Lcgmb-8-Qnixhnfdk 0.2, Yhfci-3-Xxhjylfdn 0.8, Beta Globulins 0.8, Beta Gamma Globulin 0.6, PEP Abnormal Protein Bands 0.4H, Protein Electrophoresis Interpret Comment, Immunoglobulin G 494L, Immunoglobulin A 124, Immunoglobulin M <5L 11/13/17 06:00: Hemoglobin A1c 5.6, Gamma Glutamyl Transpeptidase 31, Total Creatine Kinase 12L , Pro-B-Type Natriuretic Peptide 1562H 11/13/17 06:30: Urine Random Sodium 63 11/13/17 06:45: Albumin/Globulin Ratio 0.8L, White Blood Count 5.5, Red Blood Count 2.49L, Hemoglobin 7.4L, Hematocrit 22.4L, Mean Corpuscular Volume 90, Mean Corpuscular Hemoglobin 29.9, Mean Corpuscular Hemoglobin Concent 33.2, Red Cell Distribution Width 15.3H, Platelet Count 225, Mean Platelet Volume 5.1L, Neutrophils (%) (Auto) , Lymphocytes (%) (Auto) , Monocytes (%) (Auto) , Eosinophils (%) (Auto) , Basophils (%) (Auto) , Differential Total Cells Counted 100, Neutrophils % (Manual) 69, Lymphocytes % (Manual) 21, Monocytes % ( Manual) 8, Eosinophils % (Manual) 2, Basophils % (Manual) 0, Band Neutrophils 0 , Platelet Estimate Adequate, Platelet Morphology Normal, Hypochromasia 3+, Anisocytosis 1+, Spherocytes 1+, Sodium Level 144, Potassium Level 3.1L, Chloride Level 109H, Carbon Dioxide Level 28, Anion Gap 7, Blood Urea Nitrogen 21H, Creatinine 1.9H, Estimat Glomerular Filtration Rate 32.6, Glucose Level 95 , Calcium Level 9.7, Phosphorus Level 4.9, Magnesium Level 2.1, Total Bilirubin 0.4, Aspartate Amino Transf (AST/SGOT) 16, Alanine Aminotransferase (ALT/SGPT) 11L, Alkaline Phosphatase 117H, Total Protein 5.5L, Albumin 2.4L, Globulin 3.1, Triglycerides Level 70, Cholesterol Level 160, LDL Cholesterol 112H, HDL Cholesterol 46, Cholesterol/HDL Ratio 3.5, Thyroid Stimulating Hormone (TSH) 2.713 Height (Feet): 5 Height (Inches): 8.00 Weight (Pounds): 116 General Appearance: no apparent distress EENT: PERRL/EOMI Neck: normal alignment Cardiovascular: tachycardia Respiratory/Chest: no respiratory distress Abdomen: soft Joselito Steele MD Nov 13, 2017 12:20
--- NOTE | 2017-11-13 12:53 | Nephrology Progress Note ---
Assessment/Plan Problem List: (1) Acute renal failure (ARF) (2) Hypercalcemia (3) Multiple myeloma (4) Anemia Assessment Renal failure ? Acutre on ? Chronic Newly diagnosed MM Sever Anemia HyperCalcemia ( Corrected for low Albumin) Humerous fx Obesity Plan Hydrate- nasal cacitonin urine studies Anemia yanez- [place] [facility] [place] BP in check folic acid per hematology advise Subjective ROS Limited/Unobtainable: No Objective Objective Last 24 Hour Vital Signs Date Time Temp Pulse Resp B/P (MAP) Pulse Ox O2 Delivery O2 Flow Rate FiO2 11/13/17 12:00 98.1 69 20 131/69 (89) 98 98.1 11/13/17 09:00 Room Air 11/13/17 09:00 99.0 97 20 146/67 (93) 95 99.0 11/13/17 08:57 97 146/67 11/13/17 04:00 97.6 81 20 130/58 (82) 97.6 11/13/17 00:00 97.6 85 20 125/62 (83) 97 97.6 11/12/17 21:00 Room Air 11/12/17 20:50 86 113/64 11/12/17 20:00 98.8 86 20 113/64 (80) 95 98.8 11/12/17 17:24 97.9 11/12/17 16:25 97.9 11/12/17 16:00 98.2 86 20 123/58 (79) 98 98.2 Intake and Output 11/12/17 11/13/17 19:00 07:00 Intake Total 600 ml 75 ml Output Total 800 ml Balance 600 ml -725 ml Intake Oral 600 ml IV Total 75 ml Output Urine Total 800 ml # Voids 1 Laboratory Tests 11/12/17 19:27: Total Protein (PEP) 4.9L, Albumin (PEP) 2.5L, Globulin (PEP) 2.4, Albumin/ Globulin Ratio 1.0, Lbzlp-5-Knzjytpvp 0.2, Sjwmy-9-Frzhlezrp 0.8, Beta Globulins 0.8, Beta Gamma Globulin 0.6, PEP Abnormal Protein Bands 0.4H, Protein Electrophoresis Interpret Comment, Immunoglobulin G 494L, Immunoglobulin A 124, Immunoglobulin M <5L 11/13/17 06:00: Hemoglobin A1c 5.6, Gamma Glutamyl Transpeptidase 31, Total Creatine Kinase 12L , Pro-B-Type Natriuretic Peptide 1562H 11/13/17 06:30: Urine Random Sodium 63 11/13/17 06:45: Albumin/Globulin Ratio 0.8L, White Blood Count 5.5, Red Blood Count 2.49L, Hemoglobin 7.4L, Hematocrit 22.4L, Mean Corpuscular Volume 90, Mean Corpuscular Hemoglobin 29.9, Mean Corpuscular Hemoglobin Concent 33.2, Red Cell Distribution Width 15.3H, Platelet Count 225, Mean Platelet Volume 5.1L, Neutrophils (%) (Auto) , Lymphocytes (%) (Auto) , Monocytes (%) (Auto) , Eosinophils (%) (Auto) , Basophils (%) (Auto) , Differential Total Cells Counted 100, Neutrophils % (Manual) 69, Lymphocytes % (Manual) 21, Monocytes % ( Manual) 8, Eosinophils % (Manual) 2, Basophils % (Manual) 0, Band Neutrophils 0 , Platelet Estimate Adequate, Platelet Morphology Normal, Hypochromasia 3+, Anisocytosis 1+, Spherocytes 1+, Sodium Level 144, Potassium Level 3.1L, Chloride Level 109H, Carbon Dioxide Level 28, Anion Gap 7, Blood Urea Nitrogen 21H, Creatinine 1.9H, Estimat Glomerular Filtration Rate 32.6, Glucose Level 95 , Calcium Level 9.7, Phosphorus Level 4.9, Magnesium Level 2.1, Total Bilirubin 0.4, Aspartate Amino Transf (AST/SGOT) 16, Alanine Aminotransferase (ALT/SGPT) 11L, Alkaline Phosphatase 117H, Total Protein 5.5L, Albumin 2.4L, Globulin 3.1, Triglycerides Level 70, Cholesterol Level 160, LDL Cholesterol 112H, HDL Cholesterol 46, Cholesterol/HDL Ratio 3.5, Thyroid Stimulating Hormone (TSH) 2.713 Height (Feet): 5 Height (Inches): 8.00 Weight (Pounds): 116 General Appearance: no apparent distress Cardiovascular: normal rate Respiratory/Chest: lungs clear Abdomen: soft Steffen Morgan MD Nov 13, 2017 12:53
[2017-11-13 16:00] VITALS: BP 143/73
--- NOTE | 2017-11-13 17:15 | Diagnostic Imaging Report ---
Clinical Indication: Abdominal pain, history of multiple myeloma Technique: Spiral acquisitions obtained through the chest. No IV contrast utilized, . Multiplanar reconstructions generated. Total dose length product 1006.7 mGycm. CTDIvol(s) 26.86 mGy. Dose reduction achieved using automated exposure control Comparison: none Findings: Osteolytic lesions are seen within the left T3 transverse process, the anterior T4 vertebral body and bilateral laminae, the T5 laminae, the T6 vertebral body, bilateral C7 transverse processes,, left lateral T10 vertebral body extending into the adjacent paraspinous soft tissues, and the T12 vertebral body. Numerous rib lesions are demonstrated. There is a large expansile lesion of the left seventh rib with an associated pathologic fracture. There is a large expansile lesion of the right eighth rib, with expansion into the extrapleural space. An expansile lesion is noted in the periphery of the left scapula. There is an osteolytic lesion of the sternal manubrium. The T6 lesion results in a pathologic compression fracture with about 50% height loss anteriorly. Tumor extends slightly into the spinal canal, occupying the left lateral recess focally, but not resulting in definite cord compression. Atelectasis and or scarring is seen at both lung bases. There is some. Mild bronchiectasis at the medial left lung base. As mentioned above, there is encroachment into the pleural space by bilateral rib lesions. No definite infiltrates, effusions, or nodules. The heart is borderline enlarged. No pericardial effusion. The main pulmonary artery is dilated, measuring 4 cm in diameter. There is a right arm PICC, tip terminating in the high right atrium. No mediastinal or hilar mass or adenopathy demonstrated. No axillary or chest wall mass or adenopathy. Included portions of the thyroid are unremarkable. The esophagus is unremarkable. The included upper abdominal anatomy demonstrates atrophy and fatty replacement of the pancreas.. Impression: Multiple disseminated osseous lesions as detailed above. Given stated clinical history of multiple myeloma, findings presumably represent myeloma deposits Pathologic T6 compression fracture secondary to osteolytic T6 lesion. There is also slight encroachment of this lesion in the spinal canal, with obliteration of the left lateral recess but no definite cord compression. MRI may be useful to better assess the status of the cord in this area, however. Borderline cardiomegaly Main pulmonary arterial dilatation, suggestive of pulmonary arterial hypertension Right arm PICC Atrophy and fatty replacement of the pancreas The CT scanner at [facility] is accredited by the [employer] and the scans are performed using protocols designed to limit radiation exposure to as low as reasonably achievable to attain images of sufficient resolution adequate for diagnostic evaluation.
[2017-11-13 20:00] VITALS: BP 148/73
[2017-11-13] MEDS: Dyna-Hex 2% Top Sol 2oz TOPIC SCH (20:17)
--- NOTE | 2017-11-13 21:38 | General Progress Note ---
Assessment/Plan Problem List: (1) Hypertension ICD Codes: I10 - Essential (primary) hypertension SNOMED: 02023564 (2) Symptomatic anemia ICD Codes: D64.9 - Anemia, unspecified SNOMED: 029686973 (3) Hypercalcemia ICD Codes: E83.52 - Hypercalcemia SNOMED: 31640876 (4) Multiple myeloma ICD Codes: C90.00 - Multiple myeloma not having achieved remission SNOMED: 931348915 (5) Anemia ICD Codes: D64.9 - Anemia, unspecified SNOMED: 845743643 Status: progressing Assessment/Plan afebrile anemia improved transfusion per heme/onc chronic back pain due to MM Subjective ROS Limited/Unobtainable: Yes Allergies: Coded Allergies: No Known Allergies (Unverified , 08/21/17) Objective Last 24 Hour Vital Signs Date Time Temp Pulse Resp B/P (MAP) Pulse Ox O2 Delivery O2 Flow Rate FiO2 11/13/17 20:17 83 148/73 11/13/17 16:00 98.5 78 20 143/73 (96) 98 98.5 11/13/17 15:20 98.1 11/13/17 14:21 98.1 11/13/17 12:00 98.1 69 20 131/69 (89) 98 98.1 11/13/17 09:00 Room Air 11/13/17 09:00 99.0 97 20 146/67 (93) 95 99.0 11/13/17 08:57 97 146/67 11/13/17 04:00 97.6 81 20 130/58 (82) 97.6 11/13/17 00:00 97.6 85 20 125/62 (83) 97 97.6 Intake and Output 11/12/17 11/13/17 19:00 07:00 Intake Total 600 ml 75 ml Output Total 800 ml Balance 600 ml -725 ml Intake Oral 600 ml IV Total 75 ml Output Urine Total 800 ml # Voids 1 Laboratory Tests 11/13/17 06:00: Hemoglobin A1c 5.6, Gamma Glutamyl Transpeptidase 31, Total Creatine Kinase 12L , Pro-B-Type Natriuretic Peptide 1562H 11/13/17 06:30: Urine Random Sodium 63 11/13/17 06:45: White Blood Count 5.5, Red Blood Count 2.49L, Hemoglobin 7.4L, Hematocrit 22.4L , Mean Corpuscular Volume 90, Mean Corpuscular Hemoglobin 29.9, Mean Corpuscular Hemoglobin Concent 33.2, Red Cell Distribution Width 15.3H, Platelet Count 225, Mean Platelet Volume 5.1L, Neutrophils (%) (Auto) , Lymphocytes (%) (Auto) , Monocytes (%) (Auto) , Eosinophils (%) (Auto) , Basophils (%) (Auto) , Differential Total Cells Counted 100, Neutrophils % ( Manual) 69, Lymphocytes % (Manual) 21, Monocytes % (Manual) 8, Eosinophils % ( Manual) 2, Basophils % (Manual) 0, Band Neutrophils 0, Platelet Estimate Adequate, Platelet Morphology Normal, Hypochromasia 3+, Anisocytosis 1+, Spherocytes 1+, Sodium Level 144, Potassium Level 3.1L, Chloride Level 109H, Carbon Dioxide Level 28, Anion Gap 7, Blood Urea Nitrogen 21H, Creatinine 1.9H, Estimat Glomerular Filtration Rate 32.6, Glucose Level 95, Calcium Level 9.7, Phosphorus Level 4.9, Magnesium Level 2.1, Total Bilirubin 0.4, Aspartate Amino Transf (AST/SGOT) 16, Alanine Aminotransferase (ALT/SGPT) 11L, Alkaline Phosphatase 117H, Total Protein 5.5L, Albumin 2.4L, Globulin 3.1, Albumin/ Globulin Ratio 0.8L, Triglycerides Level 70, Cholesterol Level 160, LDL Cholesterol 112H, HDL Cholesterol 46, Cholesterol/HDL Ratio 3.5, Thyroid Stimulating Hormone (TSH) 2.713 Height (Feet): 5 Height (Inches): 8.00 Weight (Pounds): 116 Cardiovascular: normal rate Respiratory/Chest: lungs clear Abdomen: soft Amparo Pa MD Nov 13, 2017 21:38
[2017-11-14] VITALS: BP 143/63
[2017-11-14 04:00] VITALS: BP 156/73
[2017-11-14] MEDS: Norco 5mg/325mg tab ORAL PRN ×3 (04:12→15:38)
[2017-11-14] MEDS: D5 1/2NS 1,000 ML IV SCH ×2 (06:20→23:54)
[2017-11-14] MEDS ORDERED: LORazepam Inj 2mg/ml 1ml IV ONE (07:00)
--- NOTE | 2017-11-14 07:53 | General Progress Note ---
Assessment/Plan Assessment/Plan (1) B/L shoulder pain (2) Left humeral neck fracture (3) Proximal right humerus fracture s/p ORIF (4) Multiple myeloma Patient to be continued on Mullins. D/w Dr. Farfan and he concurred. Subjective Date patient seen: Nov 14, 2017 Time patient seen: 07:30 - am Allergies: Coded Allergies: No Known Allergies (Unverified , 08/21/17) Subjective Constitutional: Reports: no symptoms Eye: Reports: no symptoms ENT: Reports: no symptoms Respiratory: Reports: no symptoms Cardiovascular: Reports: no symptoms Gastrointestinal: Reports: no symptoms Genitourinary: Reports: no symptoms Musculoskeletal: Reports: joint pain - b/l shoulder pain Skin: Reports: no symptoms Psychiatric: Reports: no symptoms Neurological: Reports: no symptoms Endocrine: Reports: no symptoms Hematologic/Lymphatic: Reports: no symptoms Subjective Patient has no new complaints and the pain has been stable using the Mullins as needed. Objective Last 24 Hour Vital Signs Date Time Temp Pulse Resp B/P (MAP) Pulse Ox O2 Delivery O2 Flow Rate FiO2 11/14/17 04:00 98.5 80 19 156/73 (100) 99 98.5 11/14/17 00:00 98.8 71 19 143/63 (89) 98 98.8 11/13/17 21:00 Room Air 11/13/17 20:17 83 148/73 11/13/17 20:00 98.6 83 19 148/73 (98) 99 98.6 11/13/17 16:00 98.5 78 20 143/73 (96) 98 98.5 11/13/17 15:20 98.1 11/13/17 14:21 98.1 11/13/17 12:00 98.1 69 20 131/69 (89) 98 98.1 11/13/17 09:00 Room Air 11/13/17 09:00 99.0 97 20 146/67 (93) 95 99.0 11/13/17 08:57 97 146/67 Intake and Output 11/13/17 11/14/17 19:00 07:00 Intake Total 1500 ml 825 ml Balance 1500 ml 825 ml Intake Oral 600 ml IV Total 900 ml 825 ml # Voids 1 3 # Bowel Movements 1 Height (Feet): 5 Height (Inches): 8.00 Weight (Pounds): 281 Objective General Appearance: no apparent distress, alert, overweight HEENT: PERRL, EOMI Neck: non-tender, normal alignment Respiratory/Chest: lungs clear, normal breath sounds Cardiovascular/Chest: normal rate, regular rhythm Abdomen: non tender, soft Extremities: other - b/l shoulders tenderness to palpation with reduced ROM Skin Exam: normal pigmentation, warm/dry Neurologic: alert, oriented x 3, responsive Kevin Paez Nov 14, 2017 07:53
[2017-11-14 08:00] VITALS: BP 152/69
[2017-11-14] MEDS: Docusate 100mg cap ORAL SCH ×4 (09:00→17:20)
[2017-11-14] MEDS ORDERED: Lidocaine 2% 20mg/ml/Epi 0.005mg/ml 20ml vial INJ ONE (09:30)
[2017-11-14] MEDS ORDERED: LORazepam Inj 2mg/ml 1ml IV SCH (09:35)
[2017-11-14] MEDS: Metoprolol 25mg tab ORAL SCH ×2 (10:26→20:45)
--- NOTE | 2017-11-14 10:28 | PATHOLOGY BONE BARROW ---
Bone Marrow Aspirate & Biopsy . PROCEDURE: Bone Marrow Aspirate and Biopsy INDICATION: Plasma cell myeloma PROCEDURE DRIER ATTENDANT: Lorenza Chance CONSENT: Consent was previously obtained from the patient. The risks and benefits were re-explained. The patient agreed to undergo the procedure. A TIMEOUT WAS EXECUTED: Yes PROCEDURE SUMMARY: The patient was laid in the side position. The right posterior iliac crest was prepped and draped in a sterile fashion. The crest of the posterior iliac was located, and the skin as well as surface of the bone was anesthetized with 2% lidocaine. An aspirating needle was introduced, the bone marrow aspirate was not obtained. This was withdrawn the coring needle was advanced into the bone cavity. A bone marrow biopsy was obtained without any complications. ESTIMATED BLOOD LOSS: Negligible REPORTS TO FOLLOW LORENZA CHANCE Nov 14, 2017 10:28
--- NOTE | 2017-11-14 11:19 | Nephrology Progress Note ---
Assessment/Plan Problem List: (1) Acute renal failure (ARF) (2) Hypercalcemia (3) Multiple myeloma (4) Anemia Assessment Renal failure ? Acutre on ? Chronic Newly diagnosed MM Sever Anemia HyperCalcemia ( Corrected for low Albumin) Humerous fx Obesity Plan no labs today increase lopressor Hydrate- nasal cacitonin urine studies Anemia yanez- Transfused Aredia if available at [facility] Keep BP in check folic acid per hematology advise Subjective ROS Limited/Unobtainable: No Constitutional: Reports: malaise Objective Objective Last 24 Hour Vital Signs Date Time Temp Pulse Resp B/P (MAP) Pulse Ox O2 Delivery O2 Flow Rate FiO2 11/14/17 10:26 85 152/69 11/14/17 10:25 98.5 11/14/17 04:00 98.5 80 19 156/73 (100) 99 98.5 11/14/17 00:00 98.8 71 19 143/63 (89) 98 98.8 11/13/17 21:00 Room Air 11/13/17 20:17 83 148/73 11/13/17 20:00 98.6 83 19 148/73 (98) 99 98.6 11/13/17 16:00 98.5 78 20 143/73 (96) 98 98.5 11/13/17 15:20 98.1 11/13/17 14:21 98.1 11/13/17 12:00 98.1 69 20 131/69 (89) 98 98.1 Intake and Output 11/13/17 11/14/17 19:00 07:00 Intake Total 1500 ml 825 ml Balance 1500 ml 825 ml Intake Oral 600 ml IV Total 900 ml 825 ml # Voids 1 3 # Bowel Movements 1 Height (Feet): 5 Height (Inches): 8.00 Weight (Pounds): 281 General Appearance: no apparent distress Objective no change Steffen Morgan MD Nov 14, 2017 11:19
[2017-11-14 12:00] VITALS: BP 141/72
--- NOTE | 2017-11-14 15:31 | General Progress Note ---
Assessment/Plan Problem List: (1) Hypertension ICD Codes: I10 - Essential (primary) hypertension SNOMED: 20307951 (2) Symptomatic anemia ICD Codes: D64.9 - Anemia, unspecified SNOMED: 988829048 (3) Hypercalcemia ICD Codes: E83.52 - Hypercalcemia SNOMED: 96023134 (4) Multiple myeloma ICD Codes: C90.00 - Multiple myeloma not having achieved remission SNOMED: 486953839 (5) Anemia ICD Codes: D64.9 - Anemia, unspecified SNOMED: 952634149 Status: progressing Assessment/Plan anemia s/p bone biopsy getting bone scan chronic back pain due to MM Subjective ROS Limited/Unobtainable: Yes Allergies: Coded Allergies: No Known Allergies (Unverified , 08/21/17) Objective Last 24 Hour Vital Signs Date Time Temp Pulse Resp B/P (MAP) Pulse Ox O2 Delivery O2 Flow Rate FiO2 11/14/17 12:00 98.1 82 21 141/72 (95) 98 98.1 11/14/17 11:24 98.5 11/14/17 10:26 85 152/69 11/14/17 10:25 98.5 11/14/17 08:15 Room Air 11/14/17 08:00 97.6 85 20 152/69 (96) 99 97.6 11/14/17 04:00 98.5 80 19 156/73 (100) 99 98.5 11/14/17 00:00 98.8 71 19 143/63 (89) 98 98.8 11/13/17 21:00 Room Air 11/13/17 20:17 83 148/73 11/13/17 20:00 98.6 83 19 148/73 (98) 99 98.6 11/13/17 16:00 98.5 78 20 143/73 (96) 98 98.5 Intake and Output 11/13/17 11/14/17 19:00 07:00 Intake Total 1500 ml 825 ml Balance 1500 ml 825 ml Intake Oral 600 ml IV Total 900 ml 825 ml # Voids 1 3 # Bowel Movements 1 Height (Feet): 5 Height (Inches): 8.00 Weight (Pounds): 281 Cardiovascular: normal rate Respiratory/Chest: lungs clear Amparo Pa MD Nov 14, 2017 15:31
[2017-11-14 16:00] VITALS: BP 132/58
--- NOTE | 2017-11-14 16:45 | Diagnostic Imaging Report ---
Indication: Pain, history of myeloma Technique: Limited images of the axial and appendicular skeleton Comparison: Reference made to chest CT 11/13/2017 Findings: Chest radiograph demonstrates an osteolytic lesion of the right eighth rib. The other lesions described on recent chest CT are less evident on radiography. Multiple small focal osteolytic lesions are seen in the right femur, bilateral pubic rami, equivocally in the left femoral head and proximal left femur. Multiple focal lesions are definitely seen in the distal femoral shafts bilaterally, more numerous and larger on the left than on the right. No definite tibial lesions are demonstrated. Extensive surgical hardware is seen reducing old apparently healed fracture of the right humerus. Expansile appearance of the proximal humeral shaft indicates that this was likely a pathologic fracture. Osteolytic lesions of the right scapula are noted. There is a pathologic fracture of the left humeral neck, which is slightly angulated. This is also described on a prior 08/22/2017 shoulder radiograph. Multiple small but confluent osteolytic lesions are seen in the region of the fracture, and more focal small osteolytic lesions are seen in the distal left humeral shaft. Osteolytic lesions are also seen in the left scapula. Questionable small osteolytic foci are seen in the proximal left radius. There is probably an osteolytic focus thinning the cortex in the proximal right radius. Numerous osteolytic foci are seen in the skull. There is a compression fracture deformity of the T6 vertebral body, also described on prior CT scan no plain radiographic evidence of lumbosacral spine lesion demonstrated. No definite cervical spine lesion demonstrated. Incidentally noted is a right arm PICC. Surgical clips are seen in the left axilla Impression: Evidence of extensive diffuse osteolytic lesions throughout the axial and appendicular skeleton, as described, some previously reported on prior CT scan. Given history of recent diagnosis of multiple myeloma, these most likely represent also myelomatous deposits; appearance and distribution characteristic of such. Patient has remote history of breast carcinoma; breast metastases as etiology of these also possible but much less likely T6 pathologic compression fracture, previously reported on CT Pathologic left humeral fracture, previously reported in July 2017 Evidence of prior repair of pathologic right humeral fracture Incidental finding of right arm PICC, left axillary surgical clips
--- NOTE | 2017-11-14 17:56 | General Progress Note ---
Assessment/Plan Status: stable, unchanged Assessment/Plan #. Multiple myeloma - newly diagnosed, on imaging shows Osteolytic lesions are seen within the left T3 transverse process, the anterior T4 vertebral body and bilateral laminae, the T5 laminae, the T6 vertebral body, bilateral C7 transverse processes,, left lateral T10 vertebral body extending into the adjacent paraspinous soft tissues, and the T12 vertebral body. Numerous rib lesions are demonstrated. There is a large expansile lesion of the left seventh rib with an associated pathologic fracture. There is a large expansile lesion of the right eighth rib, with expansion into the extrapleural space. An expansile lesion is noted in the periphery of the left scapula. --> have completed a bone marrow biopsy here, results pending, have discussed with Dr. 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 Anemia due to underlying chronic disease. Anemia workup at this time has been reviewed. CURRENTLY at 7.4, CLOSELY MONITOR --> ferritin is elevated, therefore related to chronic disease --> transfuse if hgb <7, standing order --> Tx history: 11/13 - 2 units PRBC #. Breast cancer. Diagnosed and treated in 2000, at [facility], s/p chemo in the past , had 5 years of tamoxifen, then chemo-pause and then started on letrozole which has a side effect of osteopenia, has been on it for >7y. At this time, sees oncologist for f/u --> obtained CA125 which was slightly elevated at 7.2 --> skeletal survey 10v. RESULTS: Evidence of extensive diffuse osteolytic lesions throughout the axial an appendicular skeleton. --> off letrozole at this time #. Leukopenia likely related to recent treatment, chemo, now better --> administer neupogen if ANC<1000 #. Humeral b/l pathological fracture. Again to be seen by Orthopedic Surgery. --> ortho consult, potential transfer to higher level of care #. Osteopenia potentially secondary to letrozole #. Arm pain. from fracture, seen by pain management #. JAX - nephro evaluating, also in setting of newly diagnosed MM The time the note was entered does not necessarily correspond to the time the patient was seen. Subjective Date patient seen: Nov 14, 2017 ROS Limited/Unobtainable: Yes Hematologic/Lymphatic: Reports: anemia Allergies: Coded Allergies: No Known Allergies (Unverified , 08/21/17) All Systems: reviewed and negative except above Subjective Pt undergoing Bone Marrow Aspirate and Biopsy this morning Objective Last 24 Hour Vital Signs Date Time Temp Pulse Resp B/P (MAP) Pulse Ox O2 Delivery O2 Flow Rate FiO2 11/14/17 16:37 98.2 11/14/17 16:00 98.2 77 21 132/58 (82) 98 98.2 11/14/17 15:38 98.1 11/14/17 12:00 98.1 82 21 141/72 (95) 98 98.1 11/14/17 10:26 85 152/69 11/14/17 10:25 98.5 11/14/17 08:15 Room Air 11/14/17 08:00 97.6 85 20 152/69 (96) 99 97.6 11/14/17 04:00 98.5 80 19 156/73 (100) 99 98.5 11/14/17 00:00 98.8 71 19 143/63 (89) 98 98.8 11/13/17 21:00 Room Air 11/13/17 20:17 83 148/73 11/13/17 20:00 98.6 83 19 148/73 (98) 99 98.6 Intake and Output 11/13/17 11/14/17 19:00 07:00 Intake Total 1500 ml 900 ml Balance 1500 ml 900 ml Intake Oral 600 ml IV Total 900 ml 900 ml # Voids 1 3 # Bowel Movements 1 Height (Feet): 5 Height (Inches): 8.00 Weight (Pounds): 281 General Appearance: no apparent distress EENT: PERRL/EOMI Neck: normal alignment Cardiovascular: normal peripheral pulses Respiratory/Chest: no respiratory distress Abdomen: soft Joselito Steele MD Nov 14, 2017 17:56
[2017-11-14 20:00] VITALS: BP 124/59
[2017-11-14] MEDS: Dyna-Hex 2% Top Sol 2oz TOPIC SCH (20:45)
--- NOTE | 2017-11-14 23:30 | Consultation ---
DATE OF CONSULTATION: 11/14/2017 INFECTIOUS DISEASE CONSULT CONSULTING PHYSICIAN: Kulwant Mireles M.D. ATTENDING PHYSICIAN: Amparo Pa M.D. REASON FOR CONSULT: Carrier state of vancomycin-resistant enterococcus. HISTORY OF PRESENT ILLNESS: This is a 62-year-old female admitted on 11/11/2017 complaining of dizziness and weakness. She was found to have anemia. She has a history of multiple myeloma and breast cancer. Multiple myeloma was recently diagnosed. PAST MEDICAL HISTORY: Significant for hypercalcemia, breast cancer in the left side status post lumpectomy and lymph node dissection 17 years ago, obesity, and pathologic fracture of bilateral humerus. The patient had a history of hospitalization in July 2017 in [facility]. Has anemia and obesity. SOCIAL HISTORY: . One son. No history of alcohol, drug abuse, or smoking. Currently, the patient is sleeping and snoring. PHYSICAL EXAMINATION: VITAL SIGNS: Temperature 98.1, pulse 82, and blood pressure 141/72. GENERAL APPEARANCE: No acute distress. Well developed. HEAD AND NECK: [place] conjunctivae. HEART: S1 and S2 regular. LUNGS: Clear. ABDOMEN: Obese. Soft. EXTREMITY: Has no edema. LABORATORY AND DIAGNOSTIC DATA: WBC 5.5, hemoglobin 7.4, hematocrit 22.4, and platelets is 225,000. Sodium 144, potassium 3.1, chloride 109, bicarb 28, BUN 21, creatinine 1.9, and glucose 95. VRE screen was positive. MRSA screen negative. A CT scan of the chest, multiple cyst lesions that is suspected of myeloma pathology, T6 compression fracture, borderline cardiomegaly, and right arm PICC line. IMPRESSION: 1. Vancomycin-resistant enterococci colonization. 2. Multiple myeloma. 3. Multiple pathologic fractures in bilateral humerus and left T6 compression fracture. 4. Acute renal disease with chronic kidney disease, hypercalcemia, and obesity. RECOMMENDATIONS: 1. Contact isolation. 2. Observe off antibiotic. 3. The patient had a bone marrow biopsy yesterday. At the end of my exam, I thank Dr. Pa, for involving me in the care of this patient. Kulwant Mireles M.D. DR: SHARI JOB#: [id number] CC:
[2017-11-15 00:24] VITALS: BP 134/65
[2017-11-15 04:50] VITALS: BP 140/70
[2017-11-15 06:44] LABS: HEMATOCRIT 22.2 % (37.0-47.0); HEMOGLOBIN 7.3 G/DL (12.0-16.0); MEAN CORPUSCULAR VOLUME 90 FL (80-99); PLATELET COUNT 204 K/UL (150-450); RED BLOOD COUNT 2.46 M/UL (4.20-5.40); RED CELL DISTRIBUTION WIDTH 15.3 % (11.6-14.8); WHITE BLOOD COUNT 5.8 K/UL (4.8-10.8)
--- NOTE | 2017-11-15 08:18 | General Progress Note ---
Assessment/Plan Assessment/Plan (1) B/L shoulder pain (2) Left humeral neck fracture (3) Proximal right humerus fracture s/p ORIF (4) Multiple myeloma Patient to be continued on Mills. D/w Dr. Farfan and he concurred. Subjective Date patient seen: Nov 15, 2017 Time patient seen: 07:15 - am Allergies: Coded Allergies: No Known Allergies (Unverified , 08/21/17) Subjective Constitutional: Reports: no symptoms Eye: Reports: no symptoms ENT: Reports: no symptoms Respiratory: Reports: no symptoms Cardiovascular: Reports: no symptoms Gastrointestinal: Reports: no symptoms Genitourinary: Reports: no symptoms Musculoskeletal: Reports: joint pain - b/l shoulder pain Skin: Reports: no symptoms Psychiatric: Reports: no symptoms Neurological: Reports: no symptoms Endocrine: Reports: no symptoms Hematologic/Lymphatic: Reports: no symptoms Subjective Patient is in bed and has no new complaints. Her pain has been at a moderate level and controlled on the Mills. She has no new complaints. Objective Last 24 Hour Vital Signs Date Time Temp Pulse Resp B/P (MAP) Pulse Ox O2 Delivery O2 Flow Rate FiO2 11/15/17 04:50 98.6 80 20 140/70 (93) 97 98.6 11/15/17 00:24 98.0 75 19 134/65 (88) 97 98.0 11/14/17 21:57 Room Air 11/14/17 20:45 80 124/59 11/14/17 20:00 98.0 80 19 124/59 (80) 97 98.0 11/14/17 16:37 98.2 11/14/17 16:00 98.2 77 21 132/58 (82) 98 98.2 11/14/17 15:38 98.1 11/14/17 12:00 98.1 82 21 141/72 (95) 98 98.1 11/14/17 10:26 85 152/69 11/14/17 10:25 98.5 Intake and Output 11/14/17 11/15/17 19:00 07:00 Intake Total 1065 ml 540 ml Balance 1065 ml 540 ml Intake Oral 240 ml 240 ml IV Total 825 ml 300 ml # Voids 1 7 Laboratory Tests 11/15/17 05:16: White Blood Count 5.8, Red Blood Count 2.46L, Hemoglobin 7.3L, Hematocrit 22.2L , Mean Corpuscular Volume 90, Mean Corpuscular Hemoglobin 29.5, Mean Corpuscular Hemoglobin Concent 32.7, Red Cell Distribution Width 15.3H, Platelet Count 204, Mean Platelet Volume 5.1L, Neutrophils (%) (Auto) , Lymphocytes (%) (Auto) , Monocytes (%) (Auto) , Eosinophils (%) (Auto) , Basophils (%) (Auto) , Neutrophils % (Manual) [Pending], Lymphocytes % (Manual) [Pending], Platelet Estimate [Pending], Platelet Morphology [Pending], Sodium Level [Pending], Potassium Level [Pending], Chloride Level [Pending], Carbon Dioxide Level [Pending], Blood Urea Nitrogen [Pending], Creatinine [Pending], Estimat Glomerular Filtration Rate [Pending], Glucose Level [Pending], Calcium Level [Pending], Phosphorus Level [Pending], Magnesium Level [Pending], Total Bilirubin [Pending], Aspartate Amino Transf (AST/SGOT) [Pending], Alanine Aminotransferase (ALT/SGPT) [Pending], Alkaline Phosphatase [Pending], Total Protein [Pending], Albumin [Pending], Globulin [Pending] Height (Feet): 5 Height (Inches): 8.00 Weight (Pounds): 281 Objective General Appearance: no apparent distress, alert, overweight HEENT: PERRL, EOMI Neck: non-tender, normal alignment Respiratory/Chest: lungs clear, normal breath sounds Cardiovascular/Chest: normal rate, regular rhythm Abdomen: non tender, soft Extremities: other - b/l shoulders tenderness to palpation with reduced ROM Skin Exam: normal pigmentation, warm/dry Neurologic: alert, oriented x 3, responsive Kevin Paez Nov 15, 2017 08:18
[2017-11-15 08:28] VITALS: BP 152/72
[2017-11-15 08:29] LABS: ALANINE AMINOTRANSFERASE 10 U/L (12-78); ALBUMIN 2.2 G/DL (3.4-5.0); ALBUMIN/GLOBULIN RATIO 0.7 (1.0-2.7); ALKALINE PHOSPHATASE 109 U/L (46-116); ANION GAP 9 mmol/L (5-15); ASPARTATE AMINO TRANSFERASE 15 U/L (15-37); BILIRUBIN,TOTAL 0.3 MG/DL (0.2-1.0); BLOOD UREA NITROGEN 21 mg/dL (7-18); CALCIUM 9.3 MG/DL (8.5-10.1); CARBON DIOXIDE 26 MMOL/L (21-32); CHLORIDE 110 MMOL/L (98-107); CREATININE 2.1 MG/DL (0.55-1.30); PHOSPHORUS 4.6 MG/DL (2.5-4.9); POTASSIUM 3.4 MMOL/L (3.5-5.1); SODIUM 145 MMOL/L (136-145)
[2017-11-15] MEDS: Metoprolol 25mg tab ORAL SCH ×2 (08:37→21:36)
[2017-11-15] MEDS: Docusate 100mg cap ORAL SCH ×3 (08:37→18:00)
[2017-11-15] MEDS: Norco 5mg/325mg tab ORAL PRN (09:00)
--- NOTE | 2017-11-15 11:20 | Infectious Diseases Prog Note ---
Assessment/Plan Assessment/Plan A: 1. Vancomycin-resistant enterococci colonization. 2. Multiple myeloma. 3. Multiple pathologic fractures in bilateral humerus and left T6 compression fracture. 4. Acute renal disease with chronic kidney disease, hypercalcemia, and obesity. RECOMMENDATIONS: 1. Contact isolation. 2. Observe off antibiotic. Subjective ROS Limited/Unobtainable: No Constitutional: Reports: no symptoms Respiratory: Reports: no symptoms Cardiovascular: Reports: no symptoms Gastrointestinal/Abdominal: Reports: no symptoms Genitourinary: Reports: frequency, other - incontinent X 1 Musculoskeletal: Reports: pain, other - shoulders, back, left lower ribs Allergies: Coded Allergies: No Known Allergies (Unverified , 08/21/17) Objective Vital Signs Last 24 Hour Vital Signs Date Time Temp Pulse Resp B/P (MAP) Pulse Ox O2 Delivery O2 Flow Rate FiO2 11/15/17 09:00 Room Air 11/15/17 08:37 84 152/72 11/15/17 08:28 99.1 84 18 152/72 (98) 99 99.1 11/15/17 04:50 98.6 80 20 140/70 (93) 97 98.6 11/15/17 00:24 98.0 75 19 134/65 (88) 97 98.0 11/14/17 21:57 Room Air 11/14/17 20:45 80 124/59 11/14/17 20:00 98.0 80 19 124/59 (80) 97 98.0 11/14/17 16:37 98.2 11/14/17 16:00 98.2 77 21 132/58 (82) 98 98.2 11/14/17 15:38 98.1 11/14/17 12:00 98.1 82 21 141/72 (95) 98 98.1 Height (Feet): 5 Height (Inches): 8.00 Weight (Pounds): 281 General Appearance: other - obese HEENT: mucous membranes moist Respiratory/Chest: lungs clear Cardiovascular: normal rate Abdomen: soft, non tender Extremities: no edema Neurologic/Psychiatric: alert, oriented x 3, responsive Laboratory Tests Test 11/15/17 05:16 White Blood Count 5.8 K/UL (4.8-10.8) Red Blood Count 2.46 M/UL (4.20-5.40) L Hemoglobin 7.3 G/DL (12.0-16.0) L Hematocrit 22.2 % (37.0-47.0) L Mean Corpuscular Volume 90 FL (80-99) Mean Corpuscular Hemoglobin 29.5 PG (27.0-31.0) Mean Corpuscular Hemoglobin Concent 32.7 G/DL (32.0-36.0) Red Cell Distribution Width 15.3 % (11.6-14.8) H Platelet Count 204 K/UL (150-450) Mean Platelet Volume 5.1 FL (6.5-10.1) L Neutrophils (%) (Auto) % (45.0-75.0) Lymphocytes (%) (Auto) % (20.0-45.0) Monocytes (%) (Auto) % (1.0-10.0) Eosinophils (%) (Auto) % (0.0-3.0) Basophils (%) (Auto) % (0.0-2.0) Differential Total Cells Counted 100 Neutrophils % (Manual) 62 % (45-75) Lymphocytes % (Manual) 26 % (20-45) Monocytes % (Manual) 10 % (1-10) Eosinophils % (Manual) 2 % (0-3) Basophils % (Manual) 0 % (0-2) Band Neutrophils 0 % (0-8) Platelet Estimate Adequate Platelet Morphology Normal Hypochromasia 3+ Anisocytosis 1+ Spherocytes 1+ Sodium Level 145 MMOL/L (136-145) Potassium Level 3.4 MMOL/L (3.5-5.1) L Chloride Level 110 MMOL/L (98-107) H Carbon Dioxide Level 26 MMOL/L (21-32) Anion Gap 9 mmol/L (5-15) Blood Urea Nitrogen 21 mg/dL (7-18) H Creatinine 2.1 MG/DL (0.55-1.30) H Estimat Glomerular Filtration Rate 29.1 mL/min (>60) Glucose Level 88 MG/DL (74-106) Calcium Level 9.3 MG/DL (8.5-10.1) Phosphorus Level 4.6 MG/DL (2.5-4.9) Magnesium Level 1.8 MG/DL (1.8-2.4) Total Bilirubin 0.3 MG/DL (0.2-1.0) Aspartate Amino Transf (AST/SGOT) 15 U/L (15-37) Alanine Aminotransferase (ALT/SGPT) 10 U/L (12-78) L Alkaline Phosphatase 109 U/L (46-116) Total Protein 5.4 G/DL (6.4-8.2) L Albumin 2.2 G/DL (3.4-5.0) L Globulin 3.2 g/dL Albumin/Globulin Ratio 0.7 (1.0-2.7) L Current Medications Medications (Trade) Dose Ordered Sig/[place] Route PRN Reason Start Time Stop Time Status Last Admin Dose Admin Acetaminophen (Tylenol) 500 mg Q4H PRN ORAL Mild Pain/Temp > 100.5 11/12/17 04:30 12/12/17 04:29 Acetaminophen/ Hydrocodone Bitart ([place] 5/325) 1 tab Q4H PRN ORAL Moderate Pain (Pain Scale 4-6) 11/12/17 05:00 11/19/17 04:59 11/15/17 09:00 Calcitonin [place] (Miacalcin) 1 sprays DAILY NASAL 11/14/17 09:00 12/14/17 08:59 11/15/17 09:02 Chlorhexidine Gluconate ([place]-Hex 2%) 1 applic DAILY@2000 TOPIC 11/12/17 20:00 12/12/17 19:59 11/14/17 20:45 Dextrose/Sodium Chloride 1,000 ml @ 75 mls/hr [id number] IV 11/12/17 16:00 12/12/17 15:59 11/14/17 23:54 Docusate Sodium (Colace) 100 mg THREE TIMES A DAY ORAL 11/12/17 18:00 12/12/17 17:59 11/15/17 08:37 Famotidine (Pepcid) 20 mg BID ORAL 11/12/17 18:00 12/12/17 17:59 11/15/17 08:37 Folic Acid (Folate) 2 mg DAILY ORAL 11/12/17 16:09 12/12/17 16:08 11/15/17 08:37 Metoprolol Tartrate (Lopressor) 50 mg EVERY 12 HOURS ORAL 11/14/17 21:00 12/12/17 20:59 11/15/17 08:37 Kulwant Mireles MD Nov 15, 2017 11:20
[2017-11-15 12:00] VITALS: BP 157/74
--- NOTE | 2017-11-15 13:28 | General Progress Note ---
Assessment/Plan Status: stable Assessment/Plan #. Multiple myeloma - newly diagnosed, on imaging shows Osteolytic lesions are seen within the left T3 transverse process, the anterior T4 vertebral body and bilateral laminae, the T5 laminae, the T6 vertebral body, bilateral C7 transverse processes,, left lateral T10 vertebral body extending into the adjacent paraspinous soft tissues, and the T12 vertebral body. Numerous rib lesions are demonstrated. There is a large expansile lesion of the left seventh rib with an associated pathologic fracture. There is a large expansile lesion of the right eighth rib, with expansion into the extrapleural space. An expansile lesion is noted in the periphery of the left scapula. --> have completed a bone marrow biopsy here, results pending, have discussed with Dr. Velez, [facility] folder inspector, will likely begin RVD combination chemo shortly --> send off for spep, upep, igg, iga, igm --> consider aredia for high Ca++ #. Anemia due to underlying chronic disease. Anemia workup at this time has been reviewed. CURRENTLY at 7.3, CLOSELY MONITOR --> ferritin is elevated, therefore related to chronic disease --> transfuse if hgb <7, standing order --> Tx history: 11/13 - 2 units PRBC #. Breast cancer. Diagnosed and treated in 2000, at [facility], s/p chemo in the past , had 5 years of tamoxifen, then chemo-pause and then started on letrozole which has a side effect of osteopenia, has been on it for >7y. At this time, sees oncologist for f/u --> obtained CA125 which was slightly elevated at 7.2 --> skeletal survey 10v. RESULTS: Evidence of extensive diffuse osteolytic lesions throughout the axial an appendicular skeleton. --> off letrozole at this time #. Leukopenia likely related to recent treatment, chemo, now better --> administer neupogen if ANC<1000 --> WBC 5.8 #. Humeral b/l pathological fracture. Again to be seen by Orthopedic Surgery. --> ortho consult, potential transfer to higher level of care #. Osteopenia potentially secondary to letrozole #. Arm pain. from fracture, seen by pain management #. JXA - nephro evaluating, also in setting of newly diagnosed MM The time the note was entered does not necessarily correspond to the time the patient was seen. Subjective Date patient seen: Nov 15, 2017 ROS Limited/Unobtainable: Yes Hematologic/Lymphatic: Reports: anemia Allergies: Coded Allergies: No Known Allergies (Unverified , 08/21/17) All Systems: reviewed and negative except above Subjective Pt awake and alert. No acute events. Pt off abx. Objective Last 24 Hour Vital Signs Date Time Temp Pulse Resp B/P (MAP) Pulse Ox O2 Delivery O2 Flow Rate FiO2 11/15/17 12:00 99.9 75 19 157/74 (101) 96 99.9 11/15/17 09:00 Room Air 11/15/17 08:37 84 152/72 11/15/17 08:28 99.1 84 18 152/72 (98) 99 99.1 11/15/17 04:50 98.6 80 20 140/70 (93) 97 98.6 11/15/17 00:24 98.0 75 19 134/65 (88) 97 98.0 11/14/17 21:57 Room Air 11/14/17 20:45 80 124/59 11/14/17 20:00 98.0 80 19 124/59 (80) 97 98.0 11/14/17 16:37 98.2 11/14/17 16:00 98.2 77 21 132/58 (82) 98 98.2 11/14/17 15:38 98.1 Intake and Output 11/14/17 11/15/17 19:00 07:00 Intake Total 1065 ml 540 ml Balance 1065 ml 540 ml Intake Oral 240 ml 240 ml IV Total 825 ml 300 ml # Voids 1 7 Laboratory Tests 11/15/17 05:16: White Blood Count 5.8, Red Blood Count 2.46L, Hemoglobin 7.3L, Hematocrit 22.2L , Mean Corpuscular Volume 90, Mean Corpuscular Hemoglobin 29.5, Mean Corpuscular Hemoglobin Concent 32.7, Red Cell Distribution Width 15.3H, Platelet Count 204, Mean Platelet Volume 5.1L, Neutrophils (%) (Auto) , Lymphocytes (%) (Auto) , Monocytes (%) (Auto) , Eosinophils (%) (Auto) , Basophils (%) (Auto) , Differential Total Cells Counted 100, Neutrophils % ( Manual) 62, Lymphocytes % (Manual) 26, Monocytes % (Manual) 10, Eosinophils % ( Manual) 2, Basophils % (Manual) 0, Band Neutrophils 0, Platelet Estimate Adequate, Platelet Morphology Normal, Hypochromasia 3+, Anisocytosis 1+, Spherocytes 1+, Sodium Level 145, Potassium Level 3.4L, Chloride Level 110H, Carbon Dioxide Level 26, Anion Gap 9, Blood Urea Nitrogen 21H, Creatinine 2.1H, Estimat Glomerular Filtration Rate 29.1, Glucose Level 88, Calcium Level 9.3, Phosphorus Level 4.6, Magnesium Level 1.8, Total Bilirubin 0.3, Aspartate Amino Transf (AST/SGOT) 15, Alanine Aminotransferase (ALT/SGPT) 10L, Alkaline Phosphatase 109, Total Protein 5.4L, Albumin 2.2L, Globulin 3.2, Albumin/ Globulin Ratio 0.7L Height (Feet): 5 Height (Inches): 8.00 Weight (Pounds): 281 General Appearance: no apparent distress EENT: PERRL/EOMI Neck: normal alignment Cardiovascular: normal peripheral pulses Respiratory/Chest: no respiratory distress Abdomen: soft Joselito Steele MD Nov 15, 2017 13:28
[2017-11-15 16:00] VITALS: BP 163/84
--- NOTE | 2017-11-15 16:35 | General Progress Note ---
Assessment/Plan Problem List: (1) Hypertension ICD Codes: I10 - Essential (primary) hypertension SNOMED: 96716856 (2) Symptomatic anemia ICD Codes: D64.9 - Anemia, unspecified SNOMED: 965443786 (3) Hypercalcemia ICD Codes: E83.52 - Hypercalcemia SNOMED: 56938539 (4) Multiple myeloma ICD Codes: C90.00 - Multiple myeloma not having achieved remission SNOMED: 752319029 (5) Anemia ICD Codes: D64.9 - Anemia, unspecified SNOMED: 325081768 Status: progressing Assessment/Plan MM S/P TRANSFUSION CHECK H/H s/p bone biopsy getting bone scan chronic back pain due to MM Subjective Allergies: Coded Allergies: No Known Allergies (Unverified , 08/21/17) Subjective lbp Objective Last 24 Hour Vital Signs Date Time Temp Pulse Resp B/P (MAP) Pulse Ox O2 Delivery O2 Flow Rate FiO2 11/15/17 12:00 99.9 75 19 157/74 (101) 96 99.9 11/15/17 09:00 Room Air 11/15/17 08:37 84 152/72 11/15/17 08:28 99.1 84 18 152/72 (98) 99 99.1 11/15/17 04:50 98.6 80 20 140/70 (93) 97 98.6 11/15/17 00:24 98.0 75 19 134/65 (88) 97 98.0 11/14/17 21:57 Room Air 11/14/17 20:45 80 124/59 11/14/17 20:00 98.0 80 19 124/59 (80) 97 98.0 11/14/17 16:37 98.2 Intake and Output 11/14/17 11/15/17 19:00 07:00 Intake Total 1065 ml 540 ml Balance 1065 ml 540 ml Intake Oral 240 ml 240 ml IV Total 825 ml 300 ml # Voids 1 7 Laboratory Tests 11/15/17 05:16: White Blood Count 5.8, Red Blood Count 2.46L, Hemoglobin 7.3L, Hematocrit 22.2L , Mean Corpuscular Volume 90, Mean Corpuscular Hemoglobin 29.5, Mean Corpuscular Hemoglobin Concent 32.7, Red Cell Distribution Width 15.3H, Platelet Count 204, Mean Platelet Volume 5.1L, Neutrophils (%) (Auto) , Lymphocytes (%) (Auto) , Monocytes (%) (Auto) , Eosinophils (%) (Auto) , Basophils (%) (Auto) , Differential Total Cells Counted 100, Neutrophils % ( Manual) 62, Lymphocytes % (Manual) 26, Monocytes % (Manual) 10, Eosinophils % ( Manual) 2, Basophils % (Manual) 0, Band Neutrophils 0, Platelet Estimate Adequate, Platelet Morphology Normal, Hypochromasia 3+, Anisocytosis 1+, Spherocytes 1+, Sodium Level 145, Potassium Level 3.4L, Chloride Level 110H, Carbon Dioxide Level 26, Anion Gap 9, Blood Urea Nitrogen 21H, Creatinine 2.1H, Estimat Glomerular Filtration Rate 29.1, Glucose Level 88, Calcium Level 9.3, Phosphorus Level 4.6, Magnesium Level 1.8, Total Bilirubin 0.3, Aspartate Amino Transf (AST/SGOT) 15, Alanine Aminotransferase (ALT/SGPT) 10L, Alkaline Phosphatase 109, Total Protein 5.4L, Albumin 2.2L, Globulin 3.2, Albumin/ Globulin Ratio 0.7L Height (Feet): 5 Height (Inches): 8.00 Weight (Pounds): 281 Cardiovascular: regular rhythm Respiratory/Chest: lungs clear Abdomen: soft Amparo Pa MD Nov 15, 2017 16:35
[2017-11-15] MEDS: D5 1/2NS 1,000 ML IV SCH (17:16)
[2017-11-15 20:00] VITALS: BP 139/76
[2017-11-15] MEDS: Dyna-Hex 2% Top Sol 2oz TOPIC SCH (20:00)
--- NOTE | 2017-11-15 20:04 | Nephrology Progress Note ---
Assessment/Plan Problem List: (1) Acute renal failure (ARF) (2) Hypercalcemia (3) Multiple myeloma (4) Anemia Assessment Renal failure ? Acutre on ? Chronic Newly diagnosed MM Sever Anemia HyperCalcemia ( Corrected for low Albumin) Humerous fx Obesity Plan add norvasc increase lopressor Hydrate- nasal cacitonin urine studies Anemia yanez- Transfused Aredia if available at [facility] Keep BP in check folic acid per hematology advise Subjective ROS Limited/Unobtainable: No Constitutional: Reports: malaise Objective Objective Last 24 Hour Vital Signs Date Time Temp Pulse Resp B/P (MAP) Pulse Ox O2 Delivery O2 Flow Rate FiO2 11/15/17 16:00 98.8 72 18 163/84 (110) 99 98.8 11/15/17 12:00 99.9 75 19 157/74 (101) 96 99.9 11/15/17 09:00 Room Air 11/15/17 08:37 84 152/72 11/15/17 08:28 99.1 84 18 152/72 (98) 99 99.1 11/15/17 04:50 98.6 80 20 140/70 (93) 97 98.6 11/15/17 00:24 98.0 75 19 134/65 (88) 97 98.0 11/14/17 21:57 Room Air 11/14/17 20:45 80 124/59 Intake and Output 11/14/17 11/15/17 19:00 07:00 Intake Total 1065 ml 540 ml Balance 1065 ml 540 ml Intake Oral 240 ml 240 ml IV Total 825 ml 300 ml # Voids 1 7 Laboratory Tests 11/15/17 05:16: White Blood Count 5.8, Red Blood Count 2.46L, Hemoglobin 7.3L, Hematocrit 22.2L , Mean Corpuscular Volume 90, Mean Corpuscular Hemoglobin 29.5, Mean Corpuscular Hemoglobin Concent 32.7, Red Cell Distribution Width 15.3H, Platelet Count 204, Mean Platelet Volume 5.1L, Neutrophils (%) (Auto) , Lymphocytes (%) (Auto) , Monocytes (%) (Auto) , Eosinophils (%) (Auto) , Basophils (%) (Auto) , Differential Total Cells Counted 100, Neutrophils % ( Manual) 62, Lymphocytes % (Manual) 26, Monocytes % (Manual) 10, Eosinophils % ( Manual) 2, Basophils % (Manual) 0, Band Neutrophils 0, Platelet Estimate Adequate, Platelet Morphology Normal, Hypochromasia 3+, Anisocytosis 1+, Spherocytes 1+, Sodium Level 145, Potassium Level 3.4L, Chloride Level 110H, Carbon Dioxide Level 26, Anion Gap 9, Blood Urea Nitrogen 21H, Creatinine 2.1H, Estimat Glomerular Filtration Rate 29.1, Glucose Level 88, Calcium Level 9.3, Phosphorus Level 4.6, Magnesium Level 1.8, Total Bilirubin 0.3, Aspartate Amino Transf (AST/SGOT) 15, Alanine Aminotransferase (ALT/SGPT) 10L, Alkaline Phosphatase 109, Total Protein 5.4L, Albumin 2.2L, Globulin 3.2, Albumin/ Globulin Ratio 0.7L Height (Feet): 5 Height (Inches): 8.00 Weight (Pounds): 281 General Appearance: no apparent distress Objective no change Steffen Morgan MD Nov 15, 2017 20:04
[2017-11-16] VITALS: BP 136/70
[2017-11-16] MEDS: Norco 5mg/325mg tab ORAL PRN ×2 (01:54→18:37)
[2017-11-16 04:00] VITALS: BP 131/69
[2017-11-16 08:22] VITALS: BP 133/61
[2017-11-16] MEDS: Metoprolol 25mg tab ORAL SCH (08:34)
[2017-11-16] MEDS: Docusate 100mg cap ORAL SCH ×3 (08:34→18:33)
[2017-11-16] MEDS: D5 1/2NS 1,000 ML IV SCH ×2 (08:41)
--- NOTE | 2017-11-16 09:41 | Nephrology Progress Note ---
Assessment/Plan Problem List: (1) Acute renal failure (ARF) (2) Hypercalcemia (3) Multiple myeloma (4) Anemia Assessment Renal failure ? Acutre on ? Chronic Newly diagnosed MM Sever Anemia HyperCalcemia ( Corrected for low Albumin) Humerous fx Obesity Plan add norvasc increase lopressor Hydrate- nasal cacitonin urine studies Anemia yanez- Transfused Aredia if available at [facility] Keep BP in check folic acid per hematology advise ? DC planning?? Subjective ROS Limited/Unobtainable: No Constitutional: Reports: malaise Objective Objective Last 24 Hour Vital Signs Date Time Temp Pulse Resp B/P (MAP) Pulse Ox O2 Delivery O2 Flow Rate FiO2 11/16/17 08:35 78 133/61 11/16/17 08:34 78 133/61 11/16/17 08:22 98.6 78 18 133/61 (85) 98 98.6 11/16/17 04:00 97.6 77 18 131/69 (89) 97 97.6 11/16/17 02:53 98.8 11/16/17 01:54 98.8 11/16/17 00:00 98.8 73 18 136/70 (92) 99 98.8 11/15/17 21:37 80 139/76 11/15/17 21:36 80 139/76 11/15/17 21:00 Room Air 11/15/17 20:00 97.6 80 18 139/76 (97) 97 97.6 11/15/17 16:00 98.8 72 18 163/84 (110) 99 98.8 11/15/17 12:00 99.9 75 19 157/74 (101) 96 99.9 Intake and Output 11/15/17 11/16/17 19:00 07:00 Intake Total 1675 ml 1305 ml Balance 1675 ml 1305 ml Intake Oral 480 ml IV Total 825 ml 825 ml Other 850 ml # Voids 3 3 Height (Feet): 5 Height (Inches): 8.00 Weight (Pounds): 281 General Appearance: no apparent distress Objective no change Steffen Morgan MD Nov 16, 2017 09:41
--- NOTE | 2017-11-16 10:13 | General Progress Note ---
Assessment/Plan Status: stable Assessment/Plan #. Multiple myeloma - newly diagnosed, on imaging shows Osteolytic lesions are seen within the left T3 transverse process, the anterior T4 vertebral body and bilateral laminae, the T5 laminae, the T6 vertebral body, bilateral C7 transverse processes,, left lateral T10 vertebral body extending into the adjacent paraspinous soft tissues, and the T12 vertebral body. Numerous rib lesions are demonstrated. There is a large expansile lesion of the left seventh rib with an associated pathologic fracture. There is a large expansile lesion of the right eighth rib, with expansion into the extrapleural space. An expansile lesion is noted in the periphery of the left scapula. --> have completed a bone marrow biopsy here, results pending, have discussed with Dr. Velez, [facility] production line technician, will likely begin RVD combination chemo shortly --> send off for spep, upep, igg, iga, igm --> consider aredia for high Ca++ #. Anemia due to underlying chronic disease. Anemia workup at this time has been reviewed. CURRENTLY at 7.3, CLOSELY MONITOR --> ferritin is elevated, therefore related to chronic disease --> transfuse if hgb <7, standing order --> Tx history: 11/13 - 2 units PRBC #. Breast cancer. Diagnosed and treated in 2000, at [facility], s/p chemo in the past , had 5 years of tamoxifen, then chemo-pause and then started on letrozole which has a side effect of osteopenia, has been on it for >7y. At this time, sees oncologist for f/u --> obtained CA125 which was slightly elevated at 7.2 --> skeletal survey 10v. RESULTS: Evidence of extensive diffuse osteolytic lesions throughout the axial an appendicular skeleton. --> off letrozole at this time #. Leukopenia likely related to recent treatment, chemo, now better --> administer neupogen if ANC<1000 --> WBC 5.8 #. Humeral b/l pathological fracture. Again to be seen by Orthopedic Surgery. --> ortho consult, potential transfer to higher level of care #. Osteopenia potentially secondary to letrozole #. Arm pain. from fracture, seen by pain management #. JAX - nephro evaluating, also in setting of newly diagnosed MM The time the note was entered does not necessarily correspond to the time the patient was seen. Subjective Date patient seen: Nov 16, 2017 ROS Limited/Unobtainable: Yes Hematologic/Lymphatic: Reports: anemia Allergies: Coded Allergies: No Known Allergies (Unverified , 08/21/17) All Systems: reviewed and negative except above Subjective Pt awake and alert. No acute events. DC planning. Objective Last 24 Hour Vital Signs Date Time Temp Pulse Resp B/P (MAP) Pulse Ox O2 Delivery O2 Flow Rate FiO2 11/16/17 08:35 78 133/61 11/16/17 08:34 78 133/61 11/16/17 08:22 98.6 78 18 133/61 (85) 98 98.6 11/16/17 04:00 97.6 77 18 131/69 (89) 97 97.6 11/16/17 02:53 98.8 11/16/17 01:54 98.8 11/16/17 00:00 98.8 73 18 136/70 (92) 99 98.8 11/15/17 21:37 80 139/76 11/15/17 21:36 80 139/76 11/15/17 21:00 Room Air 11/15/17 20:00 97.6 80 18 139/76 (97) 97 97.6 11/15/17 16:00 98.8 72 18 163/84 (110) 99 98.8 11/15/17 12:00 99.9 75 19 157/74 (101) 96 99.9 Intake and Output 11/15/17 11/16/17 19:00 07:00 Intake Total 1675 ml 1305 ml Balance 1675 ml 1305 ml Intake Oral 480 ml IV Total 825 ml 825 ml Other 850 ml # Voids 3 3 Height (Feet): 5 Height (Inches): 8.00 Weight (Pounds): 281 General Appearance: no apparent distress EENT: PERRL/EOMI Neck: normal alignment Cardiovascular: normal peripheral pulses Respiratory/Chest: no respiratory distress Abdomen: soft Joselito Steele MD Nov 16, 2017 10:13
--- NOTE | 2017-11-16 10:22 | General Progress Note ---
Assessment/Plan Assessment/Plan (1) B/L shoulder pain (2) Left humeral neck fracture (3) Proximal right humerus fracture s/p ORIF (4) Multiple myeloma Patient to be continued on [place]. D/w Dr. Farfan and he concurred. Subjective Date patient seen: Nov 16, 2017 Time patient seen: 09:15 Allergies: Coded Allergies: No Known Allergies (Unverified , 08/21/17) Subjective Constitutional: Reports: no symptoms Eye: Reports: no symptoms ENT: Reports: no symptoms Respiratory: Reports: no symptoms Cardiovascular: Reports: no symptoms Gastrointestinal: Reports: no symptoms Genitourinary: Reports: no symptoms Musculoskeletal: Reports: joint pain - b/l shoulder pain Skin: Reports: no symptoms Psychiatric: Reports: no symptoms Neurological: Reports: no symptoms Endocrine: Reports: no symptoms Hematologic/Lymphatic: Reports: no symptoms Subjective Patient has been is bed and the pain is tolerated on the [place] as needed. She has no new complaints. Objective Last 24 Hour Vital Signs Date Time Temp Pulse Resp B/P (MAP) Pulse Ox O2 Delivery O2 Flow Rate FiO2 11/16/17 08:35 78 133/61 11/16/17 08:34 78 133/61 11/16/17 08:22 98.6 78 18 133/61 (85) 98 98.6 11/16/17 04:00 97.6 77 18 131/69 (89) 97 97.6 11/16/17 02:53 98.8 11/16/17 01:54 98.8 11/16/17 00:00 98.8 73 18 136/70 (92) 99 98.8 11/15/17 21:37 80 139/76 11/15/17 21:36 80 139/76 11/15/17 21:00 Room Air 11/15/17 20:00 97.6 80 18 139/76 (97) 97 97.6 11/15/17 16:00 98.8 72 18 163/84 (110) 99 98.8 11/15/17 12:00 99.9 75 19 157/74 (101) 96 99.9 Intake and Output 11/15/17 11/16/17 19:00 07:00 Intake Total 1675 ml 1305 ml Balance 1675 ml 1305 ml Intake Oral 480 ml IV Total 825 ml 825 ml Other 850 ml # Voids 3 3 Height (Feet): 5 Height (Inches): 8.00 Weight (Pounds): 281 Objective General Appearance: no apparent distress, alert, overweight HEENT: PERRL, EOMI Neck: non-tender, normal alignment Respiratory/Chest: lungs clear, normal breath sounds Cardiovascular/Chest: normal rate, regular rhythm Abdomen: non tender, soft Extremities: other - b/l shoulders tenderness to palpation with reduced ROM Skin Exam: normal pigmentation, warm/dry Neurologic: alert, oriented x 3, responsive Kevin Paez Nov 16, 2017 10:22
[2017-11-16 12:00] VITALS: BP 144/76
--- NOTE | 2017-11-16 12:13 | General Progress Note ---
Assessment/Plan Problem List: (1) Hypertension ICD Codes: I10 - Essential (primary) hypertension SNOMED: 60984560 (2) Symptomatic anemia ICD Codes: D64.9 - Anemia, unspecified SNOMED: 117634306 (3) Hypercalcemia ICD Codes: E83.52 - Hypercalcemia SNOMED: 25959594 (4) Multiple myeloma ICD Codes: C90.00 - Multiple myeloma not having achieved remission SNOMED: 119102963 (5) Anemia ICD Codes: D64.9 - Anemia, unspecified SNOMED: 607729630 Status: progressing Assessment/Plan MM anemia cleard by heme/onc so going home see dc summary for detalis f/u w heme/onc as outpatient Subjective ROS Limited/Unobtainable: Yes Allergies: Coded Allergies: No Known Allergies (Unverified , 08/21/17) Subjective lbp Objective Last 24 Hour Vital Signs Date Time Temp Pulse Resp B/P (MAP) Pulse Ox O2 Delivery O2 Flow Rate FiO2 11/16/17 08:35 78 133/61 11/16/17 08:34 78 133/61 11/16/17 08:22 98.6 78 18 133/61 (85) 98 98.6 11/16/17 04:00 97.6 77 18 131/69 (89) 97 97.6 11/16/17 02:53 98.8 11/16/17 01:54 98.8 11/16/17 00:00 98.8 73 18 136/70 (92) 99 98.8 11/15/17 21:37 80 139/76 11/15/17 21:36 80 139/76 11/15/17 21:00 Room Air 11/15/17 20:00 97.6 80 18 139/76 (97) 97 97.6 11/15/17 16:00 98.8 72 18 163/84 (110) 99 98.8 Intake and Output 11/15/17 11/16/17 19:00 07:00 Intake Total 1675 ml 1305 ml Balance 1675 ml 1305 ml Intake Oral 480 ml IV Total 825 ml 825 ml Other 850 ml # Voids 3 3 Height (Feet): 5 Height (Inches): 8.00 Weight (Pounds): 281 Amparo Pa MD Nov 16, 2017 12:13
[2017-11-16 16:00] VITALS: BP 154/84
[2017-11-16] MEDS ORDERED: NS 275ml ONE (16:11)
[2017-11-16] MEDS ORDERED: 1/2 NS 1000ml IV ONE (16:11)
[2017-11-16] MEDS ORDERED: Dyna-Hex 2% Top Sol 2oz TOPIC SCH (20:00)
--- NOTE | 2017-11-19 09:12 | Discharge Summary ---
Discharge Summary Discharge Summary _ DATE OF ADMISSION: 11/11/2017 DATE OF DISCHARGE: 11/16/2017 REASON FOR ADMISSION: 62 years old female with past medical history significant for multiply myeloma, breast cancer was lymph node dissection, recent bilateral humerus fracture, hypertension, presented to emergency department with dizziness and generalized weakness. Patient followed up at [facility] on the regular basis. Patient reported that oncologist recently told her that she had 3 spots on the right back area. She denied chest pain or shortness of breath. No vomiting or diarrhea. Vital signs were stable. No leukocytosis, hemoglobin 6.5 hematocrit 20.6. BUN 24 creatinine ,2.1 stable electrolytes ,except calcium 10.5. Stable LFT. Patient admitted with diagnoses of severe symptomatic anemia, acute renal failure, hypercalcemia ,multiply myeloma. CONSULTANTS: ID specialist Dr. Rome Mireles hot strip finisher Dr. Morgan felling bucking supervisor/oncologist Dr. Steele psychiatrist a specialist Dr. Farfan HOSPITAL COURSE: Patient admitted. Nephrology, hematology and pain specialists closely followed. Patient was on intravenous fluids. Anemia workup revealed anemia of chronic disease. Elevated ferritin. Hemoglobin and hematocrit were closely monitored with goal to keep hemoglobin above 7. Patient was transfused with 2 units of packed red blood cells. Prior to discharge hemoglobin 7.3 hematocrit 22.2 Anemia workup also revealed evidence of folate deficiency. Patient started on folic acid replacement. CT of the chest revealed multiply disseminated osseous lesions. Given clinical history of multiply myeloma, findings likely represent myeloma deposited. Noted pathological T6 compression fracture secondary to osteolytic T6 lesion.. Mild pulmonary artery dilatation suggestive of pulmonary arterial hypertension. Bone densitometry revealed extensive diffuse osteolytic lesions. T6 pathological compression fracture noted as previously reported on CT. Pathological left humeral fracture noted as well as pathological right humerus fracture with evidence of prior repair. . Radiation Protection Technician closely followed. Radiation Protection Technician personally reviewed results of all imaging. Bone marrow biopsy was done by pathologist while in the hospital. The results still pending. Radiation Protection Technician discussed with the [facility] felling bucking supervisor the case.. Patient probably should begin RVD combination chemotherapy shortly. Serum protein electrophoresis revealed abnormal protein bands. IgG and IgM levels low . Patient was diagnosed with breast cancer in 2000 at [facility]. Patient status post chemotherapy and 5 years of tamoxifen . After that patient was on chemotherapy pause and then started on letrozole with known side effect of osteopenia. Patient had been on letrozole for over 7 years. Radiation Protection Technician recommended to be off letrozole for now and follow up with outpatient oncologist for further suggestions and management. Patient also demonstrated evidence of leukopenia, likely due to recent treatment and chemotherapy but was improving. WBC was closely monitored. WBC - 5.8. Patient with evidence of multiply pathological fractures . Patient was recommended orthopedic consultation as outpatient. Osteopenia was potentially secondary to letrozole on underlying multiple myeloma. Pain management provided as per pain specialist recommendations. Pain was controlled . Blood pressure was managed with calcium channel madelyn and beta madelyn. GI prophylaxis provided. Certified Flight Instructor closely followed. Acute renal failure failure was likely on chronic kidney disease. Renal parameters and electrolytes were closely monitored, and nephrotoxins were avoided. Creatinine without change. Hypercalcemia corrected for low albumin. patient was started on nasal calcitonin. Prior to discharge calcium stable-9.3. Infectious disease specialist seen and evaluated patient . No evidence of infection . VRE rectal colonization noted. Patient was stable for discharge home, Hemoglobin 7.3 , hematocrit 22.2 .Dizziness resolved as hemoglobin improved. Patient to follow-up with primary care provider and oncologist. FINAL DIAGNOSES: Severe symptomatic anemia, status post blood transfusion Anemia of underlying chronic disease Multiply myeloma Acute and chronic renal failure Hypercalcemia-resolved Breast cancer Multiply pathological fractures, including bilateral humerus fractures ( right - s/p ORIF) and T6 compression fracture Hypertension Obesity Folate deficiency DISCHARGE MEDICATIONS: See Medication Reconciliation list. DISCHARGE INSTRUCTIONS:Patient was discharged home Follow up with primary care provider and oncologist in one week. I have been assigned to dictate discharge summary for this account. I was not involved in the patient's management. Monika Hein NP Nov 19, 2017 09:12
== END 2017-11-16 18:45 | disposition home health service (06) | DRG 691 ==
LOC: EDBD 21:50 → EMR 22:42 → 4E 23:48 → EDBEDREQ 23:51 → OBSVTOIN 23:54 → EDBEDREQ 23:55 → 4E 11-13 00:22 → 4W 11-15 20:37
PROC: 30233N1 Transfusion of Nonautologous Red Blood Cells into Peripheral Vein, Percutaneous Approach (ICD-10-PCS; principal; 2017-11-12)
PROC: 02HV33Z Insertion of Infusion Device into Superior Vena Cava, Percutaneous Approach (ICD-10-PCS; 2017-11-12)
DX: C90.00 Multiple myeloma not having achieved remission (principal); N17.9 Acute kidney failure, unspecified; D63.8 Anemia in other chronic diseases classified elsewhere; Z85.3 Personal history of malignant neoplasm of breast; E83.52 Hypercalcemia; X58.XXXD Exposure to other specified factors, subsequent encounter; M84.522D Pathological fracture in neoplastic disease, left humerus, subsequent encounter for fracture with routine healing; M84.521D Pathological fracture in neoplastic disease, right humerus, subsequent encounter for fracture with routine healing; M48.54XD Collapsed vertebra, not elsewhere classified, thoracic region, subsequent encounter for fracture with routine healing; I12.9 Hypertensive chronic kidney disease with stage 1 through stage 4 chronic kidney disease, or unspecified chronic kidney disease; N18.9 Chronic kidney disease, unspecified; Z22.39 Carrier of other specified bacterial diseases; E66.9 Obesity, unspecified; M85.89 Other specified disorders of bone density and structure, multiple sites
CPT/HCPCS: 36415; 36569; 71250; 76937; 77075; 80048; 80053; 80061; 82550; 82607; 82728; 82746; 82784; 82977; 83036; 83540; 83550; 83735; 83880; 84100; 84165; 84300; 84443; 85007; 85025; 86140; 86850; 86900; 86901; 86920; 87081; J8499